=== PATIENT | male | born 1965 | race Caucasian/White ===

== ENCOUNTER 2016-10-06 13:42 | Inpatient (IN) | payer OTHER ==
[2016-10-06 15:25] VITALS: BMI 32.1
--- NOTE | 2016-10-06 18:21 | HP ---
CIWA Score - CIWA Score Nausea/Vomitin Muscle Tremors: 4-Moderate,w/Arms Extend Anxiety: 4-Mod. Anxious/Guarded Agitation: 4-Moderately Restless Paroxysmal Sweats: 1-Minimal Palms Moist Orientation: 3-Disoriented Date>2 days Tacttile Disturbances: 0-None Auditory Disturbances: 0-None Visual Disturbances: 0-None Headache: 2-Mild CIWA-Ar Total Score: 20 Admission ROS BHS - HPI Chief Complaint: WITHDRAWAL SX Allergies/Adverse Reactions: Allergies Allergy/AdvReac Type Severity Reaction Status Date / Time No Known Allergies Allergy Verified 10/06/16 16:07 History of Present Illness: 51 YEARS OLD MALE WITH LONG HISTORY OF ALCOHOL DEPENDENCE, HAS HYPERTENSION AF AND DEPRESSION ANXIETY LONGEST SOBRIETY 7 MONTHS IS ADMITTED TO DETOX Exam Limitations: No Limitations - Ebola screening Have you traveled outside of the country in the last 21 days: No Have you had contact with anyone from an Ebola affected area: No Have you been sick,other than usual withdrawal symptoms: No Do you have a fever: No - Review of Systems Constitutional: Chills, Changes in sleep, Weight Stable EENT: reports: No Symptoms Reported Respiratory: reports: SOB at Rest Cardiac: reports: Palpitations GI: reports: Nausea, Poor Fluid Intake, Vomiting, Indigestion, Abdominal cramping Musculoskeletal: reports: No Symptoms Reported Integumentary: reports: No Symptoms Reported Neuro: reports: Seizure (LAST EPISODE 2009), Tremors Endocrine: reports: No Symptoms Reported Hematology: reports: Easy Bruising Psychiatric: reports: Judgement Intact, Depressed Other Systems: Reviewed and Negative Patient History - Patient Medical History Hx Anemia: No Hx Asthma: No Hx Chronic Obstructive Pulmonary Disease (COPD): No Hx Cancer: No Hx Cardiac Disorders: Yes (A fibrilation) Hx Congestive Heart Failure: No Hx Hypertension: Yes Hx Hypercholesterolemia: No Hx Pacemaker: No HX Cerebrovascular Accident: No Hx Seizures: Yes (alcohol r/seizure, last episode 6 months ago) Hx Dementia: No Hx Diabetes: No Hx Gastrointestinal Disorders: Yes Hx Liver Disease: No Hx Genitourinary Disorders: No Hx Sexually Transmitted Disorders: No Hx Renal Disease (ESRD): No Hx Thyroid Disease: No Hx Human Immunodeficiency Virus (HIV): No (LAST 06/18 NEGATIVE) Hx Hepatitis C: No Hx Depression: Yes Hx Suicide Attempt: No Hx Bipolar Disorder: No Hx Schizophrenia: No - Patient Surgical History Past Surgical History: No Hx Neurologic Surgery: No Hx Cataract Extraction: No Hx Cardiac Surgery: No Hx Lung Surgery: No Hx Breast Surgery: No Hx Breast Biopsy: No Hx Abdominal Surgery: No Hx Appendectomy: No Hx Cholecystectomy: No Hx Genitourinary Surgery: No Hx Orthopedic Surgery: No - PPD History Previous Implant?: Yes Documented Results: Negative w/proof Implanted On Prior [facility] Admission?: Yes Date: 06/25/16 Results: 0 mm PPD to be Administered?: No - Smoking Cessation Smoking history: Never smoked Have you smoked in the past 12 months: No Aproximately how many cigarettes per day: 0 Cigars Per Day: 0 Hx Chewing Tobacco Use: No Initiated information on smoking cessation: No - Substance & Tx. History Hx Alcohol Use: Yes Hx Substance Use: No Substance Use Type: Alcohol Hx Substance Use Treatment: Yes - Substances Abused Alcohol Route: Oral Frequency: Daily Amount used: Beer 2-3, 2 pints Vodka Age of first use: 12 Date of Last Use: 10/06/16 Family Disease History - Family Disease History Family Disease History: Other: Father (ALCOHOL,) Admission Physical Exam S - Vital Signs Vital Signs: Vital Signs - 24 hr 10/06/16 15:19 Temperature 97.3 F L Pulse Rate 109 H Respiratory 18 Rate Blood Pressure 153/77 - Physical General Appearance: Yes: Nourished, Appropriately Dressed, Moderate Distress, Alcohol on Breath, Tremorous, Irritable, Sweating, Anxious HEENTM: Yes: Hearing grossly Normal, Normal ENT Inspection, Normocephalic, Normal Voice Respiratory: Yes: Chest Non-Tender, Lungs Clear, Normal Breath Sounds, No Respiratory Distress, No Accessory Muscle Use Neck: Yes: Supple, Trachea in good position Breast: Yes: Breasts Symetrical Cardiology: Yes: Tachycardia, Irregularly Irregular Abdominal: Yes: Non Tender, Soft, Increased Bowel Sounds Genitourinary: Yes: Within Normal Limits Back: Yes: Normal Inspection Musculoskeletal: Yes: full range of Motion, Gait Steady Extremities: Yes: Normal Range of Motion, Non-Tender, Tremors Neurological: Yes: Alert, Motor Strength 5/5, Normal Mood/Affect, Normal Response Integumentary: Yes: Warm Lymphatic: Yes: Within Normal Limits - Diagnostic (1) Alcohol dependence with uncomplicated withdrawal Current Visit: Yes Status: Acute (2) Atrial fibrillation Current Visit: Yes Status: Acute Qualifiers: Atrial fibrillation type: paroxysmal Qualified Code(s): I48.0 - Paroxysmal atrial fibrillation (3) Hypertension Current Visit: Yes Status: Acute Qualifiers: Hypertension type: essential hypertension Qualified Code(s): I10 - Essential (primary) hypertension (4) GERD (gastroesophageal reflux disease) Current Visit: Yes Status: Acute Qualifiers: Esophagitis presence: without esophagitis Qualified Code(s): K21.9 - Gastro-esophageal reflux disease without esophagitis (5) Neuropathy Current Visit: Yes Status: Acute Cleared for Admission S - Detox or Rehab [facility] Level of Care: Medically Managed Detox Regimen/Protocol: Librium [facility] Breath Alcohol Content Breath Alcohol Content: 0.128 Urine Pregancy Test - Result Urine Test Results: Negative- NO Line Present Urine Drug Screen - Results Drug Screen Negative: No Urine Drug Screen Results: BZO-Benzodiazepines
[2016-10-06] MEDS ORDERED: MENTHOL/PHENOL 1 EACH UD MM PRN (18:23)
[2016-10-06] MEDS ORDERED: MAGNESIUM CITRATE 300 ML BOTTLE PO PRN (18:23)
[2016-10-06] MEDS ORDERED: MAG HYDROX/AL HYDROX/SIMETH 30 ML UNIT-DOSE CUP PO PRN (18:23)
[2016-10-06] MEDS ORDERED: ACETAMINOPHEN 325 MG TABLET (FP) PO PRN (18:23)
[2016-10-06] MEDS ORDERED: chlordiazePOXIDE HCL 25 MG CAPSULE PO PRN (18:23)
[2016-10-06] MEDS ORDERED: MAGNESIUM HYDROX 2400MG/30ML ORAL SUSPENSION 30 ML CUP PO PRN (18:23)
[2016-10-06] MEDS ORDERED: P-EPHED 60MG/TRIPROLIDI 2.5MG TABLET PO PRN (18:23)
[2016-10-06] MEDS ORDERED: guaiFENesin/D-METHORPHAN HB 10 ML UNIT-DOSE CUPS PO PRN (18:23)
[2016-10-06] MEDS ORDERED: hydrOXYzine PAMOATE 50 MG CAPSULE (FP) PO PRN (18:23)
[2016-10-06] MEDS ORDERED: LOPERAMIDE HCL 2 MG CAPSULE PO PRN (18:23)
[2016-10-06] MEDS ORDERED: chlordiazePOXIDE HCL 25 MG CAPSULE PO ONE (19:00)
[2016-10-06] MEDS: METOPROLOL TARTRATE 50 MG TABLET (FP) PO SCH (22:08)
[2016-10-06] MEDS: THIAMINE HCL 100 MG TABLET (FP) PO SCH (22:08)
[2016-10-06] MEDS: chlordiazePOXIDE HCL 25 MG CAPSULE PO SCH (22:08)
[2016-10-06] MEDS: RANITIDINE HCL 150 MG TABLET (FP) PO SCH (22:08)
[2016-10-06] MEDS: GABAPENTIN 300 MG CAPSULE (FP) PO SCH (22:08)
[2016-10-06] MEDS: diphenhydrAMINE HCL 50 MG CAPSULE PO PRN (22:08)
[2016-10-06 22:53] LABS: URINE APPEARANCE CLEAR; URINE BILIRUBIN NEGATIVE (NEGATIVE); URINE BLOOD NEGATIVE (NEGATIVE); URINE COLOR YELLOW; URINE GLUCOSE (UA) NEGATIVE (NEGATIVE); URINE KETONE NEGATIVE (NEGATIVE); URINE LEUK ESTERASE NEGATIVE (NEGATIVE); URINE NITRITE NEGATIVE (NEGATIVE); URINE PROTEIN NEGATIVE (NEGATIVE); URINE UROBILINOGEN NEGATIVE E.U./dl (0.2-1.0)
[2016-10-07] MEDS: GABAPENTIN 300 MG CAPSULE (FP) PO SCH ×3 (05:32→22:06)
[2016-10-07] MEDS: chlordiazePOXIDE HCL 25 MG CAPSULE PO SCH ×4 (05:32→22:07)
[2016-10-07] MEDS ORDERED: LISINOPRIL 5 MG TABLET (FP) PO SCH (10:00)
[2016-10-07] MEDS: RANITIDINE HCL 150 MG TABLET (FP) PO SCH ×2 (10:06→22:06)
[2016-10-07] MEDS: PRENATAL VITAMINS W/ FOLIC ACID TABLET (FP) PO SCH (10:06)
[2016-10-07] MEDS: RIVAROXABAN 20 MG TABLET PO SCH (10:06)
[2016-10-07] MEDS: METOPROLOL TARTRATE 50 MG TABLET (FP) PO SCH ×3 (10:07→22:06)
[2016-10-07 10:43] LABS: MCH 31.7 pg (25.7-33.7); MCHC 33.7 g/dl (32.0-35.9); MEAN CELL VOLUME 94.1 fl (80-96); MEAN PLT VOLUME 8.2 fl (7.5-11.1); RDW 14.7 % (11.9-15.9); WHITE BLOOD COUNT 3.5 K/mm3 (4.0-10.0)
[2016-10-07 10:54] LABS: INR 1.04 (0.82-1.09); PROTHROMBIN TIME (PATIENT) 11.5 SEC (9.98-11.88)
[2016-10-07 11:04] LABS: ALK PHOS 83 U/L (45-117); ANION GAP 11 (8-16); BILIRUBIN,TOTAL 0.9 mg/dL (0.2-1.0); CALCIUM 8.4 mg/dL (8.5-10.1); CO2 27 mmol/L (21-32); CREATININE 0.8 mg/dL (0.7-1.3); GLUCOSE,RANDOM 85 mg/dL (74-106); SGOT/AST 136 U/L (15-37); SGPT/ALT 56 U/L (12-78); TOT PROT 5.8 g/dl (6.4-8.2)
--- NOTE | 2016-10-07 11:16 | PN ---
S CIWA - CIWA Score Nausea/Vomitin Muscle Tremors: 4-Moderate,w/Arms Extend Anxiety: 4-Mod. Anxious/Guarded Agitation: 4-Moderately Restless Paroxysmal Sweats: 3 Orientation: 0-Oriented Tacttile Disturbances: 1-Very Mild Itch/Numbness Auditory Disturbances: 0-None Visual Disturbances: 0-None Headache: 1-Very Mild CIWA-Ar Total Score: 20 BHS Progress Note (SOAP) Subjective: nausea, sweats, interrupted sleep, anxiety, tremors Objective: 10/07/16 11:15 Vital Signs - 24 hr 10/06/16 10/06/16 10/07/16 15:19 22:20 00:30 Temperature 97.3 F L 96.3 F L Pulse Rate 109 H 69 60 Respiratory 18 18 18 Rate Blood Pressure 153/77 123/51 10/07/16 10/07/16 03:30 06:29 Temperature 97.4 F L Pulse Rate 90 Respiratory 18 18 Rate Blood Pressure 129/101 Vital Signs - 24 hr 10/06/16 10/06/16 10/07/16 15:19 22:20 00:30 Temperature 97.3 F L 96.3 F L Pulse Rate 109 H 69 60 Respiratory 18 18 18 Rate Blood Pressure 153/77 123/51 10/07/16 10/07/16 03:30 06:29 Temperature 97.4 F L Pulse Rate 90 Respiratory 18 18 Rate Blood Pressure 129/101 Laboratory Tests 10/06/16 10/07/16 10/07/16 22:03 08:00 08:00 WBC 3.5 L D RBC 4.66 Hgb 14.8 D Hct 43.9 MCV 94.1 MCHC 33.7 RDW 14.7 MPV 8.2 D INR Sodium 141 Potassium 3.5 Chloride 103 Urine Color Yellow Urine Appearance Clear Urine pH 5.0 Ur Specific [place] 1.024 Urine Protein Negative Urine Glucose (UA) Negative Urine Ketones Negative Urine Blood Negative Urine Nitrite Negative Urine Bilirubin Negative Urine Urobilinogen Negative Ur Leukocyte Esterase Negative 10/07/16 08:00 WBC RBC Hgb Hct MCV MCHC RDW MPV INR 1.04 Sodium Potassium Chloride Urine Color Urine Appearance Urine pH Ur Specific [place] Urine Protein Urine Glucose (UA) Urine Ketones Urine Blood Urine Nitrite Urine Bilirubin Urine Urobilinogen Ur Leukocyte Esterase labs still pending Assessment: 10/07/16 11:15 withdrawal sx Plan: cont detox, fluids, encoruage ambualtion, rpn libirum recommended
--- NOTE | 2016-10-07 11:45 | CONSULT ---
[facility] Psychiatric Consult - Data Date of interview: 10/07/16 Admission source: [facility] Identifying data: Readmission to [facility] for this 51 y/o male seeking detox treatment on for alci=ohol dependence.Patientis without children,homeless,unemployed and supported on Public Assistance. Substance Abuse History: - Smoking Cessation. Smoking history: Never smoked. Have you smoked in the past 12 months: No. Aproximately how many cigarettes per day: 0. Cigars Per Day: 0. Hx Chewing Tobacco Use: No. Initiated information on smoking cessation: No. - Substance & Tx. History. Hx Alcohol Use: Yes. Hx Substance Use: No. Substance Use Type: Alcohol. Hx Substance Use Treatment: Yes. - Substances Abused. Alcohol. Route: Oral. Frequency : Daily. Amount used: Beer 2-3, 2 pints Vodka. Age of first use: 12. Date of Last Use: 10/06/16. Confirmed by the patient in my interview. Medical History: Atrial fibrillation,hypertension and withdrawal seizures. Psychiatric History: No reported history of psychiatric hospitalizations.Patient is known to the [facility] drug program ([facility] ) where he had addressed his addictions in therapy in 1994.Mr Hunt is currently seeing a psychiatrist in [facility] for medication management.Diagnosed with MDD and Anxiety Disorder.Medications : seroquel 100 mg /hs (patient stopped taking that drug because of intolerable side-effects) + remeron 15 mg/hs.No history of suicide attempts. Physical/Sexual Abuse/Trauma History: Patient denies. Additional Comment: Urine Drug Screen Results: BZO-Benzodiazepines.Noted. Mental Status Exam - Mental Status Exam Alert and Oriented to: Time, Place, Person Cognitive Function: Good Mood: Anxious, Apprehensive, Hopeful Affect: Mood Congruent Patient Behavior: Fatigued, Appropriate, Cooperative Speech Pattern: Clear, Appropriate Voice Loudness: Normal Thought Process: Intact, Goal Oriented Thought Disorder: Not Present Hallucinations: Denies Suicidal Ideation: Denies Homicidal Ideation: Denies Insight/Judgement: Fair Sleep: Poorly, Difficulty falling asleep Appetite: Good Muscle strength/Tone: Normal Gait/Station: Normal Psychiatric Findings - Problem List (Gy[place] 1, 2,3) (1) Alcohol dependence with uncomplicated withdrawal Current Visit: Yes Status: Acute (2) Alcohol-induced mood disorder Current Visit: No Status: Acute (3) Depressive disorder Current Visit: Yes Status: Chronic (4) Atrial fibrillation Current Visit: Yes Status: Chronic Qualifiers: Atrial fibrillation type: paroxysmal Qualified Code(s): I48.0 - Paroxysmal atrial fibrillation (5) GERD (gastroesophageal reflux disease) Current Visit: Yes Status: Chronic Qualifiers: Esophagitis presence: without esophagitis Qualified Code(s): K21.9 - Gastro-esophageal reflux disease without esophagitis (6) Hypertension Current Visit: Yes Status: Chronic Qualifiers: Hypertension type: essential hypertension Qualified Code(s): I10 - Essential (primary) hypertension (7) Neuropathy Current Visit: Yes Status: Chronic (8) Alcohol related seizure Current Visit: No Status: Suspected (9) Gout Current Visit: No Status: Chronic - Initial Treatment Plan Initial Treatment Plan: Psychoeducation.Detoxification.Remeron 15 mg po hs.Side effects/benefits discussed with the patient.He agrees with this plan.Observation.
[2016-10-07 12:27] LABS: PLATELET COMMENT2 UNABLE TO ENUMERATE; PLATELET ESTIMATE ADEQUATE (NORMAL)
[2016-10-07] MEDS: LISINOPRIL 5 MG TABLET (FP) PO SCH (12:42)
--- NOTE | 2016-10-07 12:48 | PN ---
[facility] Progress Note Note: Vital Signs - 24 hr 10/06/16 10/06/16 10/07/16 15:19 22:20 00:30 Temperature 97.3 F L 96.3 F L Pulse Rate 109 H 69 60 Respiratory 18 18 18 Rate Blood Pressure 153/77 123/51 10/07/16 10/07/16 10/07/16 03:30 06:29 11:28 Temperature 97.4 F L 97.4 F L Pulse Rate 90 80 Respiratory 18 18 20 Rate Blood Pressure 129/101 123/91 Laboratory Tests 10/06/16 10/07/16 10/07/16 22:03 08:00 08:00 WBC 3.5 L D RBC 4.66 Hgb 14.8 D Hct 43.9 MCV 94.1 MCHC 33.7 RDW 14.7 Plt Count Not Reportable MPV 8.2 D Differential Comment Slide scanned Platelet Estimate Adequate Platelet Comment Unable to enumerate INR Sodium 141 Potassium 3.5 Chloride 103 Carbon Dioxide 27 Anion Gap 11 BUN 15 Creatinine 0.8 Creat Clearance w eGFR > 60 Random Glucose 85 D Calcium 8.4 L Total Bilirubin 0.9 AST 136 H D ALT 56 D Alkaline Phosphatase 83 D Total Protein 5.8 L Albumin 3.0 L Urine Color Yellow Urine Appearance Clear Urine pH 5.0 Ur Specific [place] 1.024 Urine Protein Negative Urine Glucose (UA) Negative Urine Ketones Negative Urine Blood Negative Urine Nitrite Negative Urine Bilirubin Negative Urine Urobilinogen Negative Ur Leukocyte Esterase Negative 10/07/16 08:00 WBC RBC Hgb Hct MCV MCHC RDW Plt Count MPV Differential Comment Platelet Estimate Platelet Comment INR 1.04 Sodium Potassium Chloride Carbon Dioxide Anion Gap BUN Creatinine Creat Clearance w eGFR Random Glucose Calcium Total Bilirubin AST ALT Alkaline Phosphatase Total Protein Albumin Urine Color Urine Appearance Urine pH Ur Specific [place] Urine Protein Urine Glucose (UA) Urine Ketones Urine Blood Urine Nitrite Urine Bilirubin Urine Urobilinogen Ur Leukocyte Esterase abnormal CBC, repeat labs in am.
[2016-10-07 14:15] LABS: HIV 1 & 2 AB NEGATIVE; HIV 1 AGp24 NEGATIVE
--- NOTE | 2016-10-07 18:39 | EKG ---
Test Reason : Blood Pressure : / mmHG Vent. Rate : 113 BPM Atrial Rate : 101 BPM P-R Int : 000 ms QRS Dur : 116 ms QT Int : 358 ms P-R-T Axes : 000 009 021 degrees QTc Int : 491 ms ATRIAL FIBRILLATION WITH RAPID VENTRICULAR RESPONSE RIGHT BUNDLE BRANCH BLOCK ABNORMAL ECG NO PREVIOUS ECGS AVAILABLE Confirmed by SHYANN CORREA, KATY ([id number]) on 10/07/2016 6:39:09 PM Referred By: Confirmed By:KATY BOOTHE MD
[2016-10-07] MEDS: MIRTAZAPINE 15 MG TABLET (FP) PO SCH (22:06)
[2016-10-07] MEDS: THIAMINE HCL 100 MG TABLET (FP) PO SCH (22:06)
[2016-10-07] MEDS: diphenhydrAMINE HCL 50 MG CAPSULE PO PRN (22:07)
[2016-10-08] MEDS: chlordiazePOXIDE HCL 25 MG CAPSULE PO SCH ×3 (05:23→17:15)
[2016-10-08] MEDS: GABAPENTIN 300 MG CAPSULE (FP) PO SCH ×3 (05:23→22:02)
[2016-10-08 10:05] LABS: BASOPHIL 1.3 % (0-2.0); EOSINOPHIL 2.3 % (0-4.5); MCH 31.3 pg (25.7-33.7); MEAN CELL VOLUME 94.9 fl (80-96); MEAN PLT VOLUME 8.4 fl (7.5-11.1); NEUTROPHILS 37.5 % (42.8-82.8); RDW 14.2 % (11.9-15.9); WHITE BLOOD COUNT 3.2 K/mm3 (4.0-10.0)
[2016-10-08] MEDS: RANITIDINE HCL 150 MG TABLET (FP) PO SCH ×2 (10:05→22:02)
[2016-10-08] MEDS: LISINOPRIL 5 MG TABLET (FP) PO SCH (10:05)
[2016-10-08] MEDS: METOPROLOL TARTRATE 50 MG TABLET (FP) PO SCH ×2 (10:05→22:02)
[2016-10-08] MEDS: RIVAROXABAN 20 MG TABLET PO SCH (10:05)
[2016-10-08] MEDS: PRENATAL VITAMINS W/ FOLIC ACID TABLET (FP) PO SCH (10:05)
[2016-10-08 10:35] LABS: ALBUMIN 2.9 g/dl (3.4-5.0); ANION GAP 11 (8-16); CALCIUM 8.2 mg/dL (8.5-10.1); CO2 25 mmol/L (21-32); GLUCOSE,RANDOM 91 mg/dL (74-106); SGOT/AST 103 U/L (15-37); SGPT/ALT 62 U/L (12-78)
[2016-10-08 10:37] LABS: ALK PHOS 93 U/L (45-117); BILIRUBIN,TOTAL 0.8 mg/dL (0.2-1.0); CREATININE 0.8 mg/dL (0.7-1.3); TOT PROT 5.9 g/dl (6.4-8.2)
[2016-10-08 11:26] LABS: PLATELET ESTIMATE ADEQUATE (NORMAL)
--- NOTE | 2016-10-08 12:37 | PN ---
S CIWA - CIWA Score Nausea/Vomitin Muscle Tremors: 4-Moderate,w/Arms Extend Anxiety: 4-Mod. Anxious/Guarded Agitation: 3 Paroxysmal Sweats: No Perspiration Orientation: 0-Oriented Tacttile Disturbances: 1-Very Mild Itch/Numbness Auditory Disturbances: 0-None Visual Disturbances: 0-None Headache: 3-Moderate CIWA-Ar Total Score: 17 BHS Progress Note (SOAP) Subjective: Sweating, anxious, tremor, interrupted sleep, nausea Objective: 10/08/16 12:33 Last Vital Signs Temp Pulse Resp BP Pulse Ox 98.3 F 61 18 134/96 10/08/16 09:23 10/08/16 09:23 10/08/16 09:23 10/08/16 09:23 Laboratory Tests 10/06/16 10/07/16 10/07/16 22:03 08:00 08:00 WBC 3.5 L D RBC 4.66 Hgb 14.8 D Hct 43.9 MCV 94.1 MCHC 33.7 RDW 14.7 Plt Count Not Reportable MPV 8.2 D Neutrophils % Lymphocytes % Monocytes % Eosinophils % Basophils % Nucleated RBCs Differential Comment Slide scanned Hypersegmented Neuts Toxic Granulation Dohle Bodies Genoveva Rods Platelet Estimate Adequate Platelet Comment Unable to enumerate Polychromasia Hypochromic-Microcytic Poikilocytosis Basophilic Stippling Anisocytosis Microcytosis Macrocytosis Spherocytes Siderocytes Sickle Cells Target Cells Tear Drop Cells Ovalocytes Stomatocytes Helmet Cells Perez-[place] Bodies [place] Rings Elio Cells Acanthocytes (Spur) Rouleaux Fragmented RBCs Schistocytes Morphology Comment INR Sodium Potassium Chloride Carbon Dioxide Anion Gap BUN Creatinine Creat Clearance w eGFR Random Glucose Calcium Total Bilirubin AST ALT Alkaline Phosphatase Total Protein Albumin Urine Color Yellow Urine Appearance Clear Urine pH 5.0 Ur Specific [place] 1.024 Urine Protein Negative Urine Glucose (UA) Negative Urine Ketones Negative Urine Blood Negative Urine Nitrite Negative Urine Bilirubin Negative Urine Urobilinogen Negative Ur Leukocyte Esterase Negative RPR Titer HIV 1&2 Antibody Screen Negative HIV P24 Antigen Negative 10/07/16 10/07/16 10/07/16 08:00 08:00 08:00 WBC RBC Hgb Hct MCV MCHC RDW Plt Count MPV Neutrophils % Lymphocytes % Monocytes % Eosinophils % Basophils % Nucleated RBCs Differential Comment Hypersegmented Neuts Toxic Granulation Dohle Bodies Genoveva Rods Platelet Estimate Platelet Comment Polychromasia Hypochromic-Microcytic Poikilocytosis Basophilic Stippling Anisocytosis Microcytosis Macrocytosis Spherocytes Siderocytes Sickle Cells Target Cells Tear Drop Cells Ovalocytes Stomatocytes Helmet Cells Perez-[place] Bodies [place] Rings [place] Cells Acanthocytes (Spur) Rouleaux Fragmented RBCs Schistocytes Morphology Comment INR 1.04 Sodium 141 Potassium 3.5 Chloride 103 Carbon Dioxide 27 Anion Gap 11 BUN 15 Creatinine 0.8 Creat Clearance w eGFR > 60 Random Glucose 85 D Calcium 8.4 L Total Bilirubin 0.9 AST 136 H D ALT 56 D Alkaline Phosphatase 83 D Total Protein 5.8 L Albumin 3.0 L Urine Color Urine Appearance Urine pH Ur Specific [place] Urine Protein Urine Glucose (UA) Urine Ketones Urine Blood Urine Nitrite Urine Bilirubin Urine Urobilinogen Ur Leukocyte Esterase RPR Titer Nonreactive HIV 1&2 Antibody Screen HIV P24 Antigen 10/08/16 10/08/16 07:20 07:20 WBC 3.2 L RBC 4.60 Hgb 14.4 Hct 43.7 MCV 94.9 MCHC 33.0 RDW 14.2 Plt Count Not Reportable MPV 8.4 Neutrophils % 37.5 L Lymphocytes % 49.8 H Monocytes % 9.1 Eosinophils % 2.3 Basophils % 1.3 Nucleated RBCs Cancelled Differential Comment Hypersegmented Neuts Cancelled Toxic Granulation Cancelled Dohle Bodies Cancelled Genoveva Rods Cancelled Platelet Estimate Adequate Platelet Comment Marked plt clumping Polychromasia Cancelled Hypochromic-Microcytic Cancelled Poikilocytosis Cancelled Basophilic Stippling Cancelled Anisocytosis Cancelled Microcytosis Cancelled Macrocytosis Cancelled Spherocytes Cancelled Siderocytes Cancelled Sickle Cells Cancelled Target Cells Cancelled Tear Drop Cells Cancelled Ovalocytes Cancelled Stomatocytes Cancelled Helmet Cells Cancelled Perez-[place] Bodies Cancelled [place] Rings Cancelled Elio Cells Cancelled Acanthocytes (Spur) Cancelled Rouleaux Cancelled Fragmented RBCs Cancelled Schistocytes Cancelled Morphology Comment Cancelled INR Sodium 141 Potassium 3.4 L Chloride 105 Carbon Dioxide 25 Anion Gap 11 BUN 12 Creatinine 0.8 Creat Clearance w eGFR > 60 Random Glucose 91 Calcium 8.2 L Total Bilirubin 0.8 AST 103 H D ALT 62 Alkaline Phosphatase 93 Total Protein 5.9 L Albumin 2.9 L Urine Color Urine Appearance Urine pH Ur Specific [place] Urine Protein Urine Glucose (UA) Urine Ketones Urine Blood Urine Nitrite Urine Bilirubin Urine Urobilinogen Ur Leukocyte Esterase RPR Titer HIV 1&2 Antibody Screen HIV P24 Antigen Labs noted: K 3.4, abnormal CBC Assessment: 10/08/16 12:37 Withdrawal symptoms Noted with hypokalemia and abnormal CBC Plan: Continue detox Hypokalemia: K Dur 40meq PO x 1 dose, repeat BMP in AM Abnormal CBC: repeat CBC, consider referral to heading saw operator if platelets count still not reportable
[2016-10-08] MEDS ORDERED: POTASSIUM CHLORIDE TABS 20 MEQ TABLET.ER (FP) PO ONE (13:30)
[2016-10-08] MEDS: THIAMINE HCL 100 MG TABLET (FP) PO SCH (22:02)
[2016-10-08] MEDS: chlordiazePOXIDE 5 MG CAPSULE PO SCH (22:02)
[2016-10-08] MEDS: MIRTAZAPINE 15 MG TABLET (FP) PO SCH (22:02)
[2016-10-08] MEDS: diphenhydrAMINE HCL 50 MG CAPSULE PO PRN (22:02)
[2016-10-09] MEDS: GABAPENTIN 300 MG CAPSULE (FP) PO SCH ×3 (05:37→22:02)
[2016-10-09] MEDS: chlordiazePOXIDE 5 MG CAPSULE PO SCH ×3 (05:37→17:24)
[2016-10-09] MEDS: LISINOPRIL 5 MG TABLET (FP) PO SCH (10:01)
[2016-10-09] MEDS: PRENATAL VITAMINS W/ FOLIC ACID TABLET (FP) PO SCH (10:01)
[2016-10-09] MEDS: METOPROLOL TARTRATE 50 MG TABLET (FP) PO SCH ×2 (10:01→22:02)
[2016-10-09 10:05] LABS: BASOPHIL 1.3 % (0-2.0); CALCIUM 8.2 mg/dL (8.5-10.1); CREATININE 0.7 mg/dL (0.7-1.3); EOSINOPHIL 1.9 % (0-4.5); MCH 31.2 pg (25.7-33.7); MCHC 32.8 g/dl (32.0-35.9); MEAN CELL VOLUME 95.1 fl (80-96); MEAN PLT VOLUME 8.7 fl (7.5-11.1); NEUTROPHILS 40.1 % (42.8-82.8); RDW 14.4 % (11.9-15.9); WHITE BLOOD COUNT 3.3 K/mm3 (4.0-10.0)
[2016-10-09] MEDS: RANITIDINE HCL 150 MG TABLET (FP) PO SCH ×2 (10:26→22:02)
[2016-10-09] MEDS: RIVAROXABAN 20 MG TABLET PO SCH (10:26)
[2016-10-09 11:09] LABS: PLATELET ESTIMATE DECREASED (NORMAL)
--- NOTE | 2016-10-09 12:37 | PN ---
[facility] Progress Note (SOAP) Subjective: Sweating, Tremors, Diarrhea, Interrupted Sleep. Objective: PT. A & O X 3, OBSERVED AMBULATING ON UNIT. 10/09/16 12:33 Vital Signs Temperature 96.9 F L 10/09/16 09:57 Pulse Rate 61 10/09/16 09:57 Respiratory Rate 18 10/09/16 09:57 Blood Pressure 132/97 10/09/16 09:57 O2 Sat by Pulse Oximetry (%) Laboratory Last Values WBC 3.3 K/mm3 (4.0-10.0) L 10/09/16 07:00 RBC 4.63 M/mm3 (4.00-5.60) 10/09/16 07:00 Hgb 14.4 GM/dL (11.7-16.9) 10/09/16 07:00 Hct 44.1 % (35.4-49) 10/09/16 07:00 MCV 95.1 fl (80-96) 10/09/16 07:00 MCHC 32.8 g/dl (32.0-35.9) 10/09/16 07:00 RDW 14.4 % (11.9-15.9) 10/09/16 07:00 Plt Count Not Reportable 10/09/16 07:00 MPV 8.7 fl (7.5-11.1) 10/09/16 07:00 Neutrophils % 40.1 % (42.8-82.8) L 10/09/16 07:00 Lymphocytes % 47.2 % (8-40) H 10/09/16 07:00 Monocytes % 9.5 % (3.8-10.2) 10/09/16 07:00 Eosinophils % 1.9 % (0-4.5) 10/09/16 07:00 Basophils % 1.3 % (0-2.0) 10/09/16 07:00 Nucleated RBCs Cancelled 10/08/16 07:20 Differential Comment Slide scanned 10/07/16 08:00 Hypersegmented Neuts Cancelled 10/08/16 07:20 Toxic Granulation Cancelled 10/08/16 07:20 Dohle Bodies Cancelled 10/08/16 07:20 Genoveva Rods Cancelled 10/08/16 07:20 Platelet Estimate Decreased (NORMAL) 10/09/16 07:00 Platelet Comment Mod plt clumping 10/09/16 07:00 Platelet Comment Unable to enumerate 10/07/16 08:00 Polychromasia Cancelled 10/08/16 07:20 Hypochromic-Microcytic Cancelled 10/08/16 07:20 Poikilocytosis Cancelled 10/08/16 07:20 Basophilic Stippling Cancelled 10/08/16 07:20 Anisocytosis Cancelled 10/08/16 07:20 Microcytosis Cancelled 10/08/16 07:20 Macrocytosis Cancelled 10/08/16 07:20 Spherocytes Cancelled 10/08/16 07:20 Siderocytes Cancelled 10/08/16 07:20 Sickle Cells Cancelled 10/08/16 07:20 Target Cells Cancelled 10/08/16 07:20 Tear Drop Cells Cancelled 10/08/16 07:20 Ovalocytes Cancelled 10/08/16 07:20 Stomatocytes Cancelled 10/08/16 07:20 Helmet Cells Cancelled 10/08/16 07:20 [place] Bodies Cancelled 10/08/16 07:20 [place] Rings Cancelled 10/08/16 07:20 Elio Cells Cancelled 10/08/16 07:20 Acanthocytes (Spur) Cancelled 10/08/16 07:20 Rouleaux Cancelled 10/08/16 07:20 Fragmented RBCs Cancelled 10/08/16 07:20 Schistocytes Cancelled 10/08/16 07:20 Morphology Comment Cancelled 10/08/16 07:20 INR 1.04 (0.82-1.09) 10/07/16 08:00 Sodium 140 mmol/L (136-145) 10/09/16 07:00 Potassium 3.4 mmol/L (3.5-5.1) L 10/09/16 07:00 Chloride 104 mmol/L (98-107) 10/09/16 07:00 Carbon Dioxide 26 mmol/L (21-32) 10/09/16 07:00 Anion Gap 10 (8-16) 10/09/16 07:00 BUN 12 mg/dL (7-18) 10/09/16 07:00 Creatinine 0.7 mg/dL (0.7-1.3) 10/09/16 07:00 Creat Clearance w eGFR > 60 (>60) 10/08/16 07:20 Random Glucose 135 mg/dL (74-106) H D 10/09/16 07:00 Calcium 8.2 mg/dL (8.5-10.1) L 10/09/16 07:00 Total Bilirubin 0.8 mg/dL (0.2-1.0) 10/08/16 07:20 AST 103 U/L (15-37) H D 10/08/16 07:20 ALT 62 U/L (12-78) 10/08/16 07:20 Alkaline Phosphatase 93 U/L (45-117) 10/08/16 07:20 Total Protein 5.9 g/dl (6.4-8.2) L 10/08/16 07:20 Albumin 2.9 g/dl (3.4-5.0) L 10/08/16 07:20 Urine Color Yellow 10/06/16 22:03 Urine Appearance Clear 10/06/16 22:03 Urine pH 5.0 (5.0-8.0) 10/06/16 22:03 Ur Specific [place] 1.024 (1.001-1.035) 10/06/16 22:03 Urine Protein Negative (NEGATIVE) 10/06/16 22:03 Urine Glucose (UA) Negative (NEGATIVE) 10/06/16 22:03 Urine Ketones Negative (NEGATIVE) 10/06/16 22:03 Urine Blood Negative (NEGATIVE) 10/06/16 22:03 Urine Nitrite Negative (NEGATIVE) 10/06/16 22:03 Urine Bilirubin Negative (NEGATIVE) 10/06/16 22:03 Urine Urobilinogen Negative E.U./dl (0.2-1.0) 10/06/16 22:03 Ur Leukocyte Esterase Negative (NEGATIVE) 10/06/16 22:03 RPR Titer Nonreactive (NONREACTIVE) 10/07/16 08:00 HIV 1&2 Antibody Screen Negative 10/07/16 08:00 HIV P24 Antigen Negative 10/07/16 08:00 LABS NOTED. 10/09/16 12:34 Assessment: 10/09/16 12:35 WITHDRAWAL SYMPTOMS. Plan: CONTINUE DETOX. K-DUR, 40 ANGIE NOW AND THEN 20 MEQ BID AFTER. ADVISED PT. TO FOLLOW-UP WITH RN DIABETES EDUCATOR / REHAB MEDICAL PROVIDER AFTER DISCHARGE FROM DETOX FOR GENERAL MEDICAL ASSESSMENT AND FOR ABNORMAL LAB VALUES.
[2016-10-09] MEDS ORDERED: POTASSIUM CHLORIDE TABS 20 MEQ TABLET.ER (FP) PO ONE (12:39)
[2016-10-09] MEDS: MIRTAZAPINE 15 MG TABLET (FP) PO SCH (22:02)
[2016-10-09] MEDS: THIAMINE HCL 100 MG TABLET (FP) PO SCH (22:02)
[2016-10-09] MEDS: diphenhydrAMINE HCL 50 MG CAPSULE PO PRN (22:02)
[2016-10-09] MEDS: chlordiazePOXIDE HCL 10 MG CAPSULE PO SCH (22:02)
[2016-10-09] MEDS: POTASSIUM CHLORIDE TABS 20 MEQ TABLET.ER (FP) PO SCH (22:02)
[2016-10-10] MEDS: chlordiazePOXIDE HCL 10 MG CAPSULE PO SCH ×2 (05:43→12:19)
[2016-10-10] MEDS: GABAPENTIN 300 MG CAPSULE (FP) PO SCH (05:43)
--- NOTE | 2016-10-10 09:23 | DS ---
[facility] Detox Discharge Summary Admission Date: 10/06/16 Discharge Date: 10/10/16 - History Present History: Alcohol Dependence Pertinent Past History: AF GOUT GERD HTN NEUROPATHY - Physical Exam Results Vital Signs: Vital Signs Temperature 96.3 F L 10/10/16 06:32 Pulse Rate 56 L 10/10/16 06:32 Respiratory Rate 18 10/10/16 06:32 Blood Pressure 134/97 10/10/16 06:32 O2 Sat by Pulse Oximetry (%) Pertinent Admission Physical Exam Findings: WITHDRAWAL SX. Laboratory Last Values WBC 3.3 K/mm3 (4.0-10.0) L 10/09/16 07:00 RBC 4.63 M/mm3 (4.00-5.60) 10/09/16 07:00 Hgb 14.4 GM/dL (11.7-16.9) 10/09/16 07:00 Hct 44.1 % (35.4-49) 10/09/16 07:00 MCV 95.1 fl (80-96) 10/09/16 07:00 MCHC 32.8 g/dl (32.0-35.9) 10/09/16 07:00 RDW 14.4 % (11.9-15.9) 10/09/16 07:00 Plt Count Not Reportable 10/09/16 07:00 MPV 8.7 fl (7.5-11.1) 10/09/16 07:00 Neutrophils % 40.1 % (42.8-82.8) L 10/09/16 07:00 Lymphocytes % 47.2 % (8-40) H 10/09/16 07:00 Monocytes % 9.5 % (3.8-10.2) 10/09/16 07:00 Eosinophils % 1.9 % (0-4.5) 10/09/16 07:00 Basophils % 1.3 % (0-2.0) 10/09/16 07:00 Nucleated RBCs Cancelled 10/08/16 07:20 Differential Comment Slide scanned 10/07/16 08:00 Hypersegmented Neuts Cancelled 10/08/16 07:20 Toxic Granulation Cancelled 10/08/16 07:20 Dohle Bodies Cancelled 10/08/16 07:20 Genoveva Rods Cancelled 10/08/16 07:20 Platelet Estimate Decreased (NORMAL) 10/09/16 07:00 Platelet Comment Mod plt clumping 10/09/16 07:00 Platelet Comment Unable to enumerate 10/07/16 08:00 Polychromasia Cancelled 10/08/16 07:20 Hypochromic-Microcytic Cancelled 10/08/16 07:20 Poikilocytosis Cancelled 10/08/16 07:20 Basophilic Stippling Cancelled 10/08/16 07:20 Anisocytosis Cancelled 10/08/16 07:20 Microcytosis Cancelled 10/08/16 07:20 Macrocytosis Cancelled 10/08/16 07:20 Spherocytes Cancelled 10/08/16 07:20 Siderocytes Cancelled 10/08/16 07:20 Sickle Cells Cancelled 10/08/16 07:20 Target Cells Cancelled 10/08/16 07:20 Tear Drop Cells Cancelled 10/08/16 07:20 Ovalocytes Cancelled 10/08/16 07:20 Stomatocytes Cancelled 10/08/16 07:20 Helmet Cells Cancelled 10/08/16 07:20 Perez-Emmett Bodies Cancelled 10/08/16 07:20 Sigel Rings Cancelled 10/08/16 07:20 [place] Cells Cancelled 10/08/16 07:20 Acanthocytes (Spur) Cancelled 10/08/16 07:20 Rouleaux Cancelled 10/08/16 07:20 Fragmented RBCs Cancelled 10/08/16 07:20 Schistocytes Cancelled 10/08/16 07:20 Morphology Comment Cancelled 10/08/16 07:20 INR 1.04 (0.82-1.09) 10/07/16 08:00 Sodium 140 mmol/L (136-145) 10/09/16 07:00 Potassium 3.4 mmol/L (3.5-5.1) L 10/09/16 07:00 Chloride 104 mmol/L (98-107) 10/09/16 07:00 Carbon Dioxide 26 mmol/L (21-32) 10/09/16 07:00 Anion Gap 10 (8-16) 10/09/16 07:00 BUN 12 mg/dL (7-18) 10/09/16 07:00 Creatinine 0.7 mg/dL (0.7-1.3) 10/09/16 07:00 Creat Clearance w eGFR > 60 (>60) 10/08/16 07:20 Random Glucose 135 mg/dL (74-106) H D 10/09/16 07:00 Calcium 8.2 mg/dL (8.5-10.1) L 10/09/16 07:00 Total Bilirubin 0.8 mg/dL (0.2-1.0) 10/08/16 07:20 AST 103 U/L (15-37) H D 10/08/16 07:20 ALT 62 U/L (12-78) 10/08/16 07:20 Alkaline Phosphatase 93 U/L (45-117) 10/08/16 07:20 Total Protein 5.9 g/dl (6.4-8.2) L 10/08/16 07:20 Albumin 2.9 g/dl (3.4-5.0) L 10/08/16 07:20 Urine Color Yellow 10/06/16 22:03 Urine Appearance Clear 10/06/16 22:03 Urine pH 5.0 (5.0-8.0) 10/06/16 22:03 Ur Specific [place] 1.024 (1.001-1.035) 10/06/16 22:03 Urine Protein Negative (NEGATIVE) 10/06/16 22:03 Urine Glucose (UA) Negative (NEGATIVE) 10/06/16 22:03 Urine Ketones Negative (NEGATIVE) 10/06/16 22:03 Urine Blood Negative (NEGATIVE) 10/06/16 22:03 Urine Nitrite Negative (NEGATIVE) 10/06/16 22:03 Urine Bilirubin Negative (NEGATIVE) 10/06/16 22:03 Urine Urobilinogen Negative E.U./dl (0.2-1.0) 10/06/16 22:03 Ur Leukocyte Esterase Negative (NEGATIVE) 10/06/16 22:03 RPR Titer Nonreactive (NONREACTIVE) 10/07/16 08:00 HIV 1&2 Antibody Screen Negative 10/07/16 08:00 HIV P24 Antigen Negative 10/07/16 08:00 LABS NOTED,K+ SUPPLEMENT GIVEN. EKG = AF WITH RAPID VENTRICULAR RESPONSE ON ADMISSION PT. WAS NOT TAKING HIS MEDS, REPEAT EKG = AF WITH VR 56 ON METOPROLOL, XARELTO & LISINOPRIL. - Treatment Hospital Course: Detox Protocol Followed, Detoxed Safely, Responded well, Discharged Condition Good, Rehab Referral Accepted - Medication Discharge Medications: Ambulatory Orders Rivaroxaban [Xarelto -] 2.5 mg PO DAILY 06/23/16 Lisinopril [Zestril] 2.5 mg PO DAILY #30 tablet 06/27/16 Metoprolol Tartrate [Lopressor -] 50 mg PO BID #60 tablet 06/27/16 Aspirin Coated [Ecotrin -] 81 mg PO DAILY #30 tablet.ec 07/18/16 Lisinopril [Prinivil] 2.5 mg PO DAILY #30 tablet 07/18/16 Metoprolol Tartrate [Lopressor -] 50 mg PO BID #60 tablet 07/18/16 Mirtazapine [Remeron -] 15 mg PO HS #30 tablet 07/18/16 Naltrexone HCl [Revia -] 50 mg PO DAILY #30 tablet 07/18/16 Ranitidine [Zantac -] 150 mg PO BID #60 tablet 07/18/16 Rivaroxaban [Xarelto -] 20 mg PO DAILY@1700 #30 tablet 07/18/16 Mirtazapine [Remeron -] 15 mg PO HS #30 tablet 10/07/16 - Diagnosis (1) Alcohol dependence with uncomplicated withdrawal Current Visit: Yes Status: Acute (2) Atrial fibrillation Current Visit: Yes Status: Chronic Qualifiers: Atrial fibrillation type: chronic Qualified Code(s): I48.2 - Chronic atrial fibrillation (3) Depressive disorder Current Visit: Yes Status: Chronic (4) GERD (gastroesophageal reflux disease) Current Visit: Yes Status: Chronic Qualifiers: Esophagitis presence: without esophagitis Qualified Code(s): K21.9 - Gastro-esophageal reflux disease without esophagitis (5) Hypertension Current Visit: Yes Status: Chronic Qualifiers: Hypertension type: essential hypertension Qualified Code(s): I10 - Essential (primary) hypertension (6) Neuropathy Current Visit: Yes Status: Chronic - AMA Did Patient Leave Against Medical Advice: No
[2016-10-10 09:46] VITALS: BP 131/96; PULSE 68; TEMP 97
[2016-10-10] MEDS: LISINOPRIL 5 MG TABLET (FP) PO SCH (10:06)
[2016-10-10] MEDS: RANITIDINE HCL 150 MG TABLET (FP) PO SCH (10:06)
[2016-10-10] MEDS: METOPROLOL TARTRATE 50 MG TABLET (FP) PO SCH (10:07)
[2016-10-10] MEDS: RIVAROXABAN 20 MG TABLET PO SCH (10:07)
[2016-10-10] MEDS: POTASSIUM CHLORIDE TABS 20 MEQ TABLET.ER (FP) PO SCH (10:07)
[2016-10-10] MEDS: PRENATAL VITAMINS W/ FOLIC ACID TABLET (FP) PO SCH (10:08)
--- NOTE | 2016-10-10 17:43 | EKG ---
Test Reason : Blood Pressure : / mmHG Vent. Rate : 081 BPM Atrial Rate : 085 BPM P-R Int : 000 ms QRS Dur : 130 ms QT Int : 398 ms P-R-T Axes : 000 -36 009 degrees QTc Int : 462 ms ATRIAL FIBRILLATION LEFT AXIS DEVIATION RIGHT BUNDLE BRANCH BLOCK ABNORMAL ECG WHEN COMPARED WITH ECG OF 06-OCT-2016 20:03, VENT. RATE HAS DECREASED Confirmed by LAZARO SWARTZ MD ([id number]) on 10/10/2016 5:43:05 PM Referred By: Confirmed By:LAZARO SWARTZ MD
== END 2016-10-10 13:20 | disposition home or self-care (01) | DRG 775 ==
LOC: YASAS 13:42 → Y3N 16:20
PROVIDERS: ADMIT Internal Medicine; ATTEND Internal Medicine
PROC: HZ2ZZZZ Detoxification Services for Substance Abuse Treatment (ICD-10-PCS; principal; 2016-10-10)
DX: F10.230 Alcohol dependence with withdrawal, uncomplicated (principal); F10.24 Alcohol dependence with alcohol-induced mood disorder; I48.0 Paroxysmal atrial fibrillation; Z79.01 Long term (current) use of anticoagulants; G62.9 Polyneuropathy, unspecified; K21.9 Gastro-esophageal reflux disease without esophagitis; M10.9 Gout, unspecified
CPT/HCPCS: 36415; 80048; 80053; 81003; 85025; 85027; 85610; 86593; 87389; 93005; 93010

== ENCOUNTER 2017-07-24 11:41 | Inpatient (IN) | payer OTHER ==
[2017-07-24 11:58] VITALS: BMI 31.4
--- NOTE | 2017-07-24 14:16 | HP ---
Admission ROS [facility] - [facility] Chief Complaint: i am here for rehab from alcohol Allergies/Adverse Reactions: Allergies Allergy/AdvReac Type Severity Reaction Status Date / Time No Known Allergies Allergy Verified 07/24/17 14:06 History of Present Illness: this 52 years old male with alcohol dependence,seeking rehab,last treatment [facility] from 07/19/17 to 07/24/17 history of atrial fibrillation on xeralto 20 mgs po daily and metaprolol seizure last 2009 anxiety and depression Exam Limitations: No Limitations - Ebola screening Have you traveled outside of the country in the last 21 days: No Have you had contact with anyone from an Ebola affected area: No Have you been sick,other than usual withdrawal symptoms: No Do you have a fever: No - Review of Systems Constitutional: No Symptoms Reported EENT: reports: No Symptoms Reported Respiratory: reports: No Symptoms reported Cardiac: reports: No Symptoms Reported GI: reports: No Symptoms Reported : reports: No Symptoms Reported Musculoskeletal: reports: No Symptoms Reported Integumentary: reports: No Symptoms Reported Neuro: reports: No Symptoms reported Endocrine: reports: No Symptoms Reported Hematology: reports: No Symptoms Reported Psychiatric: reports: No Sypmtoms Reported, Judgement Intact, Mood/Affect Appropiate, Orientated x3, Anxious Patient History - Patient Medical History Hx Anemia: No Hx Asthma: No Hx Chronic Obstructive Pulmonary Disease (COPD): No Hx Cancer: No Hx Cardiac Disorders: Yes (A fibrilation) Hx Congestive Heart Failure: No Hx Hypertension: Yes Hx Hypercholesterolemia: No Hx Pacemaker: No HX Cerebrovascular Accident: No Hx Seizures: Yes (alcohol r/seizure, last episode 6 months ago) Hx Dementia: No Hx Diabetes: No Hx Gastrointestinal Disorders: Yes Hx Liver Disease: No Hx Genitourinary Disorders: No Hx Sexually Transmitted Disorders: No Hx Renal Disease (ESRD): No Hx Thyroid Disease: No Hx Human Immunodeficiency Virus (HIV): No (LAST 10/20 NEGATIVE) Hx Hepatitis C: No Hx Depression: Yes Hx Suicide Attempt: No Hx Bipolar Disorder: No Hx Schizophrenia: No Other Medical History: no suicidal,no homiidal - Patient Surgical History Past Surgical History: No Hx Neurologic Surgery: No Hx Cataract Extraction: No Hx Cardiac Surgery: No Hx Lung Surgery: No Hx Breast Surgery: No Hx Breast Biopsy: No Hx Abdominal Surgery: No Hx Appendectomy: No Hx Cholecystectomy: No Hx Genitourinary Surgery: No Hx Section: No Hx Orthopedic Surgery: No Hx Hysterectomy: No Anesthesia Reaction: No - PPD History Previous Implant?: Yes Documented Results: Negative w/o proof Date: 06/25/16 Results: 0 mm PPD to be Administered?: Yes - Smoking Cessation Smoking history: Never smoked Have you smoked in the past 12 months: No Aproximately how many cigarettes per day: 0 Cigars Per Day: 0 Hx Chewing Tobacco Use: No - Substances Abused Alcohol Route: Oral Frequency: Daily Amount used: 1 CASE OF BEER Age of first use: 12 Date of Last Use: 07/18/17 Family Disease History - Family Disease History Family Disease History: Other: Father (ALCOHOL,) Admission Physical Exam S - Vital Signs Vital Signs: Vital Signs - 24 hr 07/24/17 11:56 Temperature 96.9 F L Pulse Rate 94 H Respiratory 18 Rate Blood Pressure 117/70 - Physical General Appearance: Yes: Within Normal Limits HEENTM: Yes: Normal ENT Inspection, XU, Pharynx Normal Respiratory: Yes: Within Normal Limits, Lungs Clear, Normal Breath Sounds Neck: Yes: Within Normal Limits Breast: Yes: Within Normal Limits Cardiology: Yes: Within Normal Limits, Regular Rhythm, Regular Rate, S1, S2 Abdominal: Yes: Within Normal Limits, Normal Bowel Sounds, Non Tender, Flat, Soft Genitourinary: Yes: Within Normal Limits Back: Yes: Muscle Spasm Extremities: Yes: Tremors Neurological: Yes: 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 NML intact, Fully Oriented, Alert, Motor Strength 5/5 Integumentary: Yes: Dry Lymphatic: Yes: Within Normal Limits - Diagnostic (1) Alcohol dependence Current Visit: Yes Status: Acute (2) History of atrial fibrillation Current Visit: Yes Status: Acute (3) Depression Current Visit: No Status: Acute (4) Syncope Current Visit: No Status: Acute (5) Atrial fibrillation Current Visit: No Status: Chronic Qualifiers: Atrial fibrillation type: chronic Qualified Code(s): I48.2 - Chronic atrial fibrillation (6) GERD (gastroesophageal reflux disease) Current Visit: No Status: Chronic Qualifiers: Esophagitis presence: without esophagitis Qualified Code(s): K21.9 - Gastro -esophageal reflux disease without esophagitis (7) Neuropathy Current Visit: No Status: Chronic (8) Alcohol related seizure Current Visit: No Status: Suspected Cleared for Admission [facility] - Detox or Rehab Claeared for Rehab Admission: Yes [facility] Breath Alcohol Content Breath Alcohol Content: 0 Urine Drug Screen - Results Drug Screen Negative: No Urine Drug Screen Results: BZO-Benzodiazepines Inpatient Rehab Admission - Initial Determination Are CD services needed?: Yes Free of communicable disease: Yes Not in need of hospitalization: Yes - Rehab Admission Criteria Previous failed treatment: Yes Poor recovery environment: Yes Comorbidities: Yes Patient is meeting Inpatient Rehab admission criteria:: Yes
[2017-07-24] MEDS ORDERED: P-EPHED 60MG/TRIPROLIDI 2.5MG TABLET PO PRN (14:31)
[2017-07-24] MEDS ORDERED: IBUPROFEN 400 MG TABLET (FP) PO PRN (14:31)
[2017-07-24] MEDS ORDERED: MAGNESIUM HYDROX 2400MG/30ML ORAL SUSPENSION 30 ML CUP PO PRN (14:31)
[2017-07-24] MEDS ORDERED: MENTHOL/PHENOL 1 EACH UD MM PRN (14:31)
[2017-07-24] MEDS ORDERED: guaiFENesin/D-METHORPHAN HB 10 ML UNIT-DOSE CUPS PO PRN (14:31)
[2017-07-24] MEDS ORDERED: MAG HYDROX/AL HYDROX/SIMETH 30 ML UNIT-DOSE CUP PO PRN (14:31)
[2017-07-24] MEDS ORDERED: ACETAMINOPHEN 325 MG TABLET (FP) PO PRN (14:31)
[2017-07-24] MEDS ORDERED: MAGNESIUM CITRATE 300 ML BOTTLE PO PRN (14:31)
[2017-07-24] MEDS ORDERED: LOPERAMIDE HCL 2 MG CAPSULE PO PRN (14:31)
[2017-07-24] MEDS: RIVAROXABAN 20 MG TABLET PO SCH (17:10)
[2017-07-24 17:55] LABS: MCH 30.8 pg (25.7-33.7); MCHC 32.4 g/dl (32.0-35.9); MEAN PLT VOLUME 10.4 fl (7.5-11.1); PLATELET COUNT 131 K/MM3 (134-434); RDW 15.6 % (11.9-15.9)
[2017-07-24 18:04] LABS: ALBUMIN 4.1 g/dl (3.4-5.0); ANION GAP 7 (8-16); CALCIUM 9.5 mg/dL (8.5-10.1); CO2 29 mmol/L (21-32); CREATININE 0.9 mg/dL (0.7-1.3); GLUCOSE,RANDOM 99 mg/dL (74-106); SGOT/AST 31 U/L (15-37); SGPT/ALT 50 U/L (12-78)
[2017-07-24 18:05] LABS: URINE APPEARANCE CLOUDY; URINE BILIRUBIN NEGATIVE (NEGATIVE); URINE BLOOD NEGATIVE (NEGATIVE); URINE COLOR AMBER; URINE GLUCOSE (UA) NEGATIVE (NEGATIVE); URINE KETONE NEGATIVE (NEGATIVE); URINE NITRITE NEGATIVE (NEGATIVE); URINE PROTEIN NEGATIVE (NEGATIVE); URINE UROBILINOGEN NEGATIVE mg/dL (0.2-1.0)
[2017-07-24 18:06] LABS: ALK PHOS 95 U/L (45-117); BILIRUBIN,TOTAL 0.5 mg/dL (0.2-1.0); TOT PROT 8.1 g/dl (6.4-8.2)
--- NOTE | 2017-07-24 20:59 | PN ---
[facility] Progress Note Note: received nurse call that the patient needed a ppd
[2017-07-24] MEDS ORDERED: TUBERCULIN PPD 5 TU/0.1ML VIAL ID ONE ×2 (21:03→21:32)
[2017-07-24] MEDS: THIAMINE HCL 100 MG TABLET (FP) PO SCH (21:17)
[2017-07-24 21:31] LABS: URINE LEUK ESTERASE Negative (NEGATIVE)
[2017-07-25] MEDS: hydrOXYzine PAMOATE 50 MG CAPSULE (FP) PO PRN ×2 (01:29→21:22)
[2017-07-25] MEDS: ESCITALOPRAM OXALATE 20 MG TABLET (FP) PO SCH (09:57)
[2017-07-25] MEDS: PRENATAL VITAMINS W/ FOLIC ACID TABLET (FP) PO SCH (09:57)
[2017-07-25] MEDS: METOPROLOL SUCCINATE 100 MG TAB.SR.24H (FP) PO SCH (09:57)
[2017-07-25] MEDS ORDERED: busPIRone HCL 10 MG TABLET (FP) PO SCH (10:00)
--- NOTE | 2017-07-25 10:16 | EKG ---
Test Reason : Blood Pressure : / mmHG Vent. Rate : 100 BPM Atrial Rate : 234 BPM P-R Int : 000 ms QRS Dur : 112 ms QT Int : 324 ms P-R-T Axes : 000 -34 029 degrees QTc Int : 417 ms ATRIAL FIBRILLATION LEFT AXIS DEVIATION RIGHT BUNDLE BRANCH BLOCK ABNORMAL ECG WHEN COMPARED WITH ECG OF 10-OCT-2016 09:17, NO SIGNIFICANT CHANGE WAS FOUND Confirmed by IRAJ GOODE MD ([id number]) on 07/25/2017 10:16:45 AM Referred By: Confirmed By:IRAJ GOODE MD
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
[2017-07-25] MEDS ORDERED: FLU VACCINE QUAD 60 MCG/0.5 ML (MDV 17-18) IM ONE (12:00)
[2017-07-25] MEDS: busPIRone HCL 10 MG TABLET (FP) PO SCH ×2 (13:39→21:21)
[2017-07-25] MEDS: RIVAROXABAN 20 MG TABLET PO SCH (16:43)
[2017-07-25] MEDS: THIAMINE HCL 100 MG TABLET (FP) PO SCH (21:21)
[2017-07-26] MEDS: busPIRone HCL 10 MG TABLET (FP) PO SCH ×3 (07:00→21:23)
[2017-07-26] MEDS: METOPROLOL SUCCINATE 100 MG TAB.SR.24H (FP) PO SCH (09:51)
[2017-07-26] MEDS: PRENATAL VITAMINS W/ FOLIC ACID TABLET (FP) PO SCH (09:51)
[2017-07-26] MEDS: ESCITALOPRAM OXALATE 20 MG TABLET (FP) PO SCH (09:51)
[2017-07-26] MEDS: NALTREXONE HCL 50 MG TABLET PO SCH (09:51)
[2017-07-26] MEDS: RIVAROXABAN 20 MG TABLET PO SCH (16:54)
[2017-07-26] MEDS: hydrOXYzine PAMOATE 50 MG CAPSULE (FP) PO PRN (21:23)
[2017-07-26] MEDS: THIAMINE HCL 100 MG TABLET (FP) PO SCH (21:23)
[2017-07-27] MEDS: busPIRone HCL 10 MG TABLET (FP) PO SCH ×3 (06:12→21:36)
[2017-07-27] MEDS: ESCITALOPRAM OXALATE 20 MG TABLET (FP) PO SCH (09:56)
[2017-07-27] MEDS: PRENATAL VITAMINS W/ FOLIC ACID TABLET (FP) PO SCH (09:56)
[2017-07-27] MEDS: METOPROLOL SUCCINATE 100 MG TAB.SR.24H (FP) PO SCH (09:56)
[2017-07-27] MEDS: NALTREXONE HCL 50 MG TABLET PO SCH (09:56)
[2017-07-27] MEDS: RIVAROXABAN 20 MG TABLET PO SCH (16:57)
[2017-07-27] MEDS: THIAMINE HCL 100 MG TABLET (FP) PO SCH (21:36)
[2017-07-27] MEDS: hydrOXYzine PAMOATE 50 MG CAPSULE (FP) PO PRN (21:37)
[2017-07-28] MEDS: busPIRone HCL 10 MG TABLET (FP) PO SCH ×3 (06:43→21:23)
[2017-07-28] MEDS: PRENATAL VITAMINS W/ FOLIC ACID TABLET (FP) PO SCH (10:15)
[2017-07-28] MEDS: METOPROLOL SUCCINATE 100 MG TAB.SR.24H (FP) PO SCH (10:15)
[2017-07-28] MEDS: NALTREXONE HCL 50 MG TABLET PO SCH (10:15)
[2017-07-28] MEDS: ESCITALOPRAM OXALATE 20 MG TABLET (FP) PO SCH (10:15)
[2017-07-28] MEDS: RIVAROXABAN 20 MG TABLET PO SCH (16:45)
[2017-07-28] MEDS: hydrOXYzine PAMOATE 50 MG CAPSULE (FP) PO PRN (21:23)
[2017-07-28] MEDS: THIAMINE HCL 100 MG TABLET (FP) PO SCH (21:23)
[2017-07-29] MEDS: busPIRone HCL 10 MG TABLET (FP) PO SCH ×3 (06:37→21:36)
[2017-07-29] MEDS: ESCITALOPRAM OXALATE 20 MG TABLET (FP) PO SCH (10:28)
[2017-07-29] MEDS: NALTREXONE HCL 50 MG TABLET PO SCH (10:28)
[2017-07-29] MEDS: PRENATAL VITAMINS W/ FOLIC ACID TABLET (FP) PO SCH (10:28)
[2017-07-29] MEDS: METOPROLOL SUCCINATE 100 MG TAB.SR.24H (FP) PO SCH (10:28)
[2017-07-29] MEDS: RIVAROXABAN 20 MG TABLET PO SCH (16:53)
[2017-07-29] MEDS: THIAMINE HCL 100 MG TABLET (FP) PO SCH (21:36)
[2017-07-29] MEDS: hydrOXYzine PAMOATE 50 MG CAPSULE (FP) PO PRN (21:36)
[2017-07-30] MEDS: busPIRone HCL 10 MG TABLET (FP) PO SCH ×3 (05:56→21:35)
[2017-07-30] MEDS: ESCITALOPRAM OXALATE 20 MG TABLET (FP) PO SCH (10:08)
[2017-07-30] MEDS: METOPROLOL SUCCINATE 100 MG TAB.SR.24H (FP) PO SCH (10:08)
[2017-07-30] MEDS: NALTREXONE HCL 50 MG TABLET PO SCH (10:08)
[2017-07-30] MEDS: PRENATAL VITAMINS W/ FOLIC ACID TABLET (FP) PO SCH (10:08)
[2017-07-30] MEDS: RIVAROXABAN 20 MG TABLET PO SCH (17:03)
[2017-07-30] MEDS: THIAMINE HCL 100 MG TABLET (FP) PO SCH (21:35)
[2017-07-30] MEDS: hydrOXYzine PAMOATE 50 MG CAPSULE (FP) PO PRN (21:36)
[2017-07-31] MEDS: busPIRone HCL 10 MG TABLET (FP) PO SCH ×3 (06:10→21:29)
[2017-07-31] MEDS: METOPROLOL SUCCINATE 100 MG TAB.SR.24H (FP) PO SCH (10:03)
[2017-07-31] MEDS: NALTREXONE HCL 50 MG TABLET PO SCH (10:03)
[2017-07-31] MEDS: PRENATAL VITAMINS W/ FOLIC ACID TABLET (FP) PO SCH (10:03)
[2017-07-31] MEDS: ESCITALOPRAM OXALATE 20 MG TABLET (FP) PO SCH (10:03)
[2017-07-31] MEDS: RIVAROXABAN 20 MG TABLET PO SCH (16:57)
[2017-07-31] MEDS: hydrOXYzine PAMOATE 50 MG CAPSULE (FP) PO PRN (21:29)
[2017-07-31] MEDS: THIAMINE HCL 100 MG TABLET (FP) PO SCH (21:29)
[2017-08-01] MEDS: busPIRone HCL 10 MG TABLET (FP) PO SCH ×3 (06:40→21:27)
[2017-08-01] MEDS: PRENATAL VITAMINS W/ FOLIC ACID TABLET (FP) PO SCH (09:54)
[2017-08-01] MEDS: METOPROLOL SUCCINATE 100 MG TAB.SR.24H (FP) PO SCH (09:54)
[2017-08-01] MEDS: NALTREXONE HCL 50 MG TABLET PO SCH (09:54)
[2017-08-01] MEDS: ESCITALOPRAM OXALATE 20 MG TABLET (FP) PO SCH (09:54)
[2017-08-01] MEDS: RIVAROXABAN 20 MG TABLET PO SCH (16:54)
[2017-08-01] MEDS: THIAMINE HCL 100 MG TABLET (FP) PO SCH (21:27)
[2017-08-02] MEDS: busPIRone HCL 10 MG TABLET (FP) PO SCH ×3 (06:27→21:31)
[2017-08-02] MEDS: PRENATAL VITAMINS W/ FOLIC ACID TABLET (FP) PO SCH (10:09)
[2017-08-02] MEDS: NALTREXONE HCL 50 MG TABLET PO SCH (10:09)
[2017-08-02] MEDS: ESCITALOPRAM OXALATE 20 MG TABLET (FP) PO SCH (10:10)
[2017-08-02] MEDS: METOPROLOL SUCCINATE 100 MG TAB.SR.24H (FP) PO SCH (10:10)
[2017-08-02] MEDS: RIVAROXABAN 20 MG TABLET PO SCH (16:36)
[2017-08-02] MEDS: THIAMINE HCL 100 MG TABLET (FP) PO SCH (21:31)
[2017-08-03] MEDS: busPIRone HCL 10 MG TABLET (FP) PO SCH ×3 (05:58→21:20)
[2017-08-03] MEDS: PRENATAL VITAMINS W/ FOLIC ACID TABLET (FP) PO SCH (09:56)
[2017-08-03] MEDS: METOPROLOL SUCCINATE 100 MG TAB.SR.24H (FP) PO SCH (09:56)
[2017-08-03] MEDS: NALTREXONE HCL 50 MG TABLET PO SCH (09:56)
[2017-08-03] MEDS: ESCITALOPRAM OXALATE 20 MG TABLET (FP) PO SCH (09:56)
[2017-08-03] MEDS: RIVAROXABAN 20 MG TABLET PO SCH (16:56)
[2017-08-03] MEDS: THIAMINE HCL 100 MG TABLET (FP) PO SCH (21:20)
[2017-08-03] MEDS: hydrOXYzine PAMOATE 50 MG CAPSULE (FP) PO PRN (21:21)
[2017-08-04] MEDS: busPIRone HCL 10 MG TABLET (FP) PO SCH ×3 (06:30→21:27)
[2017-08-04] MEDS: METOPROLOL SUCCINATE 100 MG TAB.SR.24H (FP) PO SCH (09:56)
[2017-08-04] MEDS: ESCITALOPRAM OXALATE 20 MG TABLET (FP) PO SCH (09:56)
[2017-08-04] MEDS: NALTREXONE HCL 50 MG TABLET PO SCH (09:56)
[2017-08-04] MEDS: PRENATAL VITAMINS W/ FOLIC ACID TABLET (FP) PO SCH (09:56)
[2017-08-04] MEDS: RIVAROXABAN 20 MG TABLET PO SCH (16:35)
[2017-08-04] MEDS: THIAMINE HCL 100 MG TABLET (FP) PO SCH (21:27)
[2017-08-04] MEDS: hydrOXYzine PAMOATE 50 MG CAPSULE (FP) PO PRN (21:27)
[2017-08-05] MEDS: busPIRone HCL 10 MG TABLET (FP) PO SCH ×3 (06:13→21:26)
[2017-08-05] MEDS: NALTREXONE HCL 50 MG TABLET PO SCH (10:20)
[2017-08-05] MEDS: ESCITALOPRAM OXALATE 20 MG TABLET (FP) PO SCH (10:20)
[2017-08-05] MEDS: PRENATAL VITAMINS W/ FOLIC ACID TABLET (FP) PO SCH (10:20)
[2017-08-05] MEDS: METOPROLOL SUCCINATE 100 MG TAB.SR.24H (FP) PO SCH (10:20)
[2017-08-05] MEDS: RIVAROXABAN 20 MG TABLET PO SCH (16:48)
[2017-08-05] MEDS: THIAMINE HCL 100 MG TABLET (FP) PO SCH (21:26)
[2017-08-05] MEDS: hydrOXYzine PAMOATE 50 MG CAPSULE (FP) PO PRN (21:26)
[2017-08-06] MEDS: busPIRone HCL 10 MG TABLET (FP) PO SCH ×3 (06:51→21:24)
[2017-08-06] MEDS: NALTREXONE HCL 50 MG TABLET PO SCH (10:08)
[2017-08-06] MEDS: ESCITALOPRAM OXALATE 20 MG TABLET (FP) PO SCH (10:08)
[2017-08-06] MEDS: METOPROLOL SUCCINATE 100 MG TAB.SR.24H (FP) PO SCH (10:08)
[2017-08-06] MEDS: PRENATAL VITAMINS W/ FOLIC ACID TABLET (FP) PO SCH (10:08)
[2017-08-06] MEDS: RIVAROXABAN 20 MG TABLET PO SCH (16:35)
[2017-08-06] MEDS: THIAMINE HCL 100 MG TABLET (FP) PO SCH (21:24)
[2017-08-06] MEDS: hydrOXYzine PAMOATE 50 MG CAPSULE (FP) PO PRN (21:24)
[2017-08-07] MEDS: busPIRone HCL 10 MG TABLET (FP) PO SCH (06:16)
[2017-08-07 06:33] VITALS: BP 117/81; PULSE 82; TEMP 98.3
[2017-08-07] MEDS: NALTREXONE HCL 50 MG TABLET PO SCH (10:15)
[2017-08-07] MEDS: METOPROLOL SUCCINATE 100 MG TAB.SR.24H (FP) PO SCH (10:15)
[2017-08-07] MEDS: ESCITALOPRAM OXALATE 20 MG TABLET (FP) PO SCH (10:15)
[2017-08-07] MEDS: PRENATAL VITAMINS W/ FOLIC ACID TABLET (FP) PO SCH (10:15)
--- NOTE | 2017-08-07 10:24 | PN ---
Psychiatric Progress Note Vital Signs: Vital Signs Period Temp Pulse Resp BP Sys/Ambriz Pulse Ox Last 24 Hr 98.3 F 82 16-18 117/81 Date of Session: 08/07/17 Chief Complaint:: discharge visit HPI: Patient has addressed alcohol dependence comorbid alcohol induced anxiety and mood disorder. ROS: HTN, Afib,alcohol related seizure, GERD, gout and fractured ribs medically managed. Current Medications: Active Medications Generic Name Dose Route Start Last Admin Trade Name Freq PRN Reason Stop Dose Admin Acetaminophen 650 mg 07/24/17 14:31 Tylenol - PO Q4H PRN PAIN Al Hydroxide/Mg Hydroxide 30 ml 07/24/17 14:31 Mylanta Oral Suspension - PO Q6H PRN DYSPEPSIA Buspirone HCl 10 mg 07/25/17 14:00 08/07/17 06:16 Buspar - PO 10 mg TID JASMIN Administration Escitalopram Oxalate 20 mg 07/25/17 10:00 08/07/17 10:15 Lexapro - PO 20 mg DAILY JASMIN Administration Eucalyptus/Menthol/Phenol/Sorbitol 1 each 07/24/17 14:31 Cepastat Lozenge - MM Q4H PRN SORE THROAT Guaifenesin 10 ml 07/24/17 14:31 Robitussin Dm - PO Q6H PRN COUGH Hydroxyzine Pamoate 50 mg 07/24/17 14:31 08/06/17 21:24 Vistaril - PO 50 mg Q4H PRN Administration AGITATION Loperamide HCl 4 mg 07/24/17 14:31 Imodium - PO Q6H PRN DIARRHEA Magnesium Citrate 300 ml 07/24/17 14:31 Citroma - PO Q48H PRN CONSTIPATION Magnesium Hydroxide 30 ml 07/24/17 14:31 Milk Of Magnesia - PO DAILY PRN CONSTIPATION Metoprolol Succinate 100 mg 07/25/17 10:00 08/07/17 10:15 Toprol Xl - PO 100 mg DAILY JASMIN Administration Naltrexone HCl 50 mg 07/26/17 10:00 08/07/17 10:15 Revia - PO 50 mg DAILY JASMIN Administration Multivit/Folic Acid/Iron 1 tab 07/25/17 10:00 08/07/17 10:15 Vitamins (Sjr) - PO 1 tab DAILY JASMIN Administration Pseudoephedrine/Triprolidine 1 combo 07/24/17 14:31 Actifed - PO TID PRN NASAL CONGESTION Rivaroxaban 20 mg 07/24/17 17:00 08/06/17 16:35 Xarelto - PO 20 mg DAILY@1700 JASMIN Administration Thiamine HCl 100 mg 07/24/17 22:00 08/06/17 21:24 Vitamin B1 - PO 100 mg HS JASMIN Administration Current Side Effect: No Lab tests ordered: No Lab tests reviewed: Yes Provider note:: Patient has completed today his treatment and met his goals, will continue to address his issues at [facility] OPD. He focused on importance of changing attitudes, continue maintain abstinence, utilize all supports available and use alternative ways to cope with the stressors to prevent relapses. Patient continue finding Buspar, Lexapro effective in terms of anxiety reduction and mood improvement, Naltrexone for alcohol dependence, medications well tolerated, scripts provided for 30 days, stable for discharge today. Total face to face time:: 25 Mental Status Exam - Mental Status Exam Alert and Oriented to: Time, Place, Person Cognitive Function: Good Patient Appearance: Well Groomed Mood: Hopeful Affect: Appropriate, Mood Congruent Patient Behavior: Appropriate, Cooperative Speech Pattern: Clear, Appropriate Voice Loudness: Normal Thought Process: Intact Thought Disorder: Not Present Hallucinations: Denies Suicidal Ideation: Denies Homicidal Ideation: Denies Insight/Judgement: Fair Sleep: Fair Appetite: Fair Muscle strength/Tone: Normal Gait/Station: Normal Psychiatric Treatment Plan - Problem List (1) Alcohol-induced anxiety disorder Current Visit: Yes (2) Alcohol dependence Current Visit: Yes (3) Alcohol-induced mood disorder Current Visit: No (4) GERD (gastroesophageal reflux disease) Current Visit: No Qualifiers: Esophagitis presence: without esophagitis Qualified Code(s): K21.9 - Gastro -esophageal reflux disease without esophagitis (5) Gout Current Visit: No (6) Hypertension Current Visit: No Qualifiers: Hypertension type: essential hypertension Qualified Code(s): I10 - Essential (primary) hypertension
== END 2017-08-07 10:55 | disposition home or self-care (01) | DRG 772 ==
LOC: YASAS 11:41 → Y5N 14:38
PROVIDERS: ADMIT Psychiatry & Neurology Psychiatry; ATTEND Psychiatry & Neurology Psychiatry
PROC: HZ42ZZZ Group Counseling for Substance Abuse Treatment, Cognitive-Behavioral (ICD-10-PCS; principal; 2017-07-24)
DX: F10.20 Alcohol dependence, uncomplicated (principal); F10.282 Alcohol dependence with alcohol-induced sleep disorder; F10.24 Alcohol dependence with alcohol-induced mood disorder; F33.9 Major depressive disorder, recurrent, unspecified; I48.91 Unspecified atrial fibrillation; I10 Essential (primary) hypertension; K21.9 Gastro-esophageal reflux disease without esophagitis; G62.9 Polyneuropathy, unspecified; M10.9 Gout, unspecified; Z86.69 Personal history of other diseases of the nervous system and sense organs
CPT/HCPCS: 36415; 80053; 81003; 85027; 86593; 90688; 93005; 93010

== ENCOUNTER 2019-09-23 18:46 | Inpatient (IN) | payer OTHER ==
[2019-09-23 19:55] VITALS: BMI 33.2
--- NOTE | 2019-09-24 02:22 | HP ---
CIWA Score Nausea/Vomitin Muscle Tremors: 4-Moderate,w/Arms Extend Anxiety: 4-Mod. Anxious/Guarded Agitation: 3 Paroxysmal Sweats: 4-Forehead w/Sweat Beads Orientation: 0-Oriented Tacttile Disturbances: 0-None Auditory Disturbances: 0-None Visual Disturbances: 0-None Headache: 0-None Present CIWA-Ar Total Score: 17 - Admission Criteria OASAS Guidelines: Admission for Medically Managed Detox: Requires at least one of the followin. CIWA greater than 12 2. Seizures within the past 24 hours 3. Delirium tremens within the past 24 hours 4. Hallucinations within the past 24 hours 5. Acute intervention needed for co occurring medical disorder 6. Acute intervention needed for co occurring psychiatric disorder 7. Severe withdrawal that cannot be handled at a lower level of care (continued vomiting, continued diarrhea, abnormal vital signs) requiring intravenous medication and/or fluids 8. Admitting History and Physical - Smoking History Smoking history: Never smoked Have you smoked in the past 12 months: No Aproximately how many cigarettes per day: 0 - Alcohol/Substance Use Hx Alcohol Use: Yes (daily 2pints of vodka) Admission [facility] Chief Complaint: Alcohol withdrawal symptoms Allergies/Adverse Reactions: Allergies Allergy/AdvReac Type Severity Reaction Status Date / Time No Known Allergies Allergy Verified 09/23/19 19:43 History of Present Illness: 54 years old male with a long history of alcohol dependence (since age 12) is seeking admission to detox. Patient has been in multiple detox and reports eight months of sobriety. Patient has medical history of AFIB, hypertension, GERD, Gout, Neuropathy, seizures and psych history of depression and anxiety. He denies suicide attempt and suicidal ideation at this time. Exam Limitations: No Limitations - Ebola screening Have you traveled outside of the country in the last 21 days: No (N) Have you had contact with anyone from an Ebola affected area: No Do you have a fever: No - Review of Systems Constitutional: Chills, Loss of Appetite, Malaise, Night Sweats, Changes in sleep EENT: reports: Nose Congestion Respiratory: reports: No Symptoms reported Cardiac: reports: No Symptoms Reported GI: reports: Diarrhea, Nausea, Poor Appetite, Poor Fluid Intake, Abdominal cramping : reports: No Symptoms Reported Musculoskeletal: reports: No Symptoms Reported Integumentary: reports: Dryness, Flushing Neuro: reports: Tremors Endocrine: reports: No Symptoms Reported Hematology: reports: No Symptoms Reported Psychiatric: reports: Mood/Affect Appropiate, Orientated x3, Anxious, Depressed Other Systems: Reviewed and Negative Patient History - Patient Medical History Hx Anemia: No Hx Asthma: No Hx Chronic Obstructive Pulmonary Disease (COPD): No Hx Cancer: No Hx Cardiac Disorders: Yes (A fibrilation) Hx Congestive Heart Failure: No Hx Hypertension: Yes Hx Hypercholesterolemia: No Hx Pacemaker: No HX Cerebrovascular Accident: No Hx Seizures: Yes (alcohol r/seizure, last episode 6 months ago) Hx Dementia: No Hx Diabetes: No Hx Gastrointestinal Disorders: Yes (GERD) Hx Liver Disease: No Hx Genitourinary Disorders: No Hx Sexually Transmitted Disorders: No Hx Renal Disease (ESRD): No Hx Thyroid Disease: No Hx Human Immunodeficiency Virus (HIV): No (LAST 10/20 NEGATIVE) Hx Hepatitis C: No Hx Depression: Yes Hx Suicide Attempt: No (Denies suicidal ideation at this time) Hx Bipolar Disorder: No Hx Schizophrenia: No Other Medical History: ANXIETY - Patient Surgical History Past Surgical History: No Hx Neurologic Surgery: No Hx Cataract Extraction: No Hx Cardiac Surgery: No Hx Lung Surgery: No Hx Abdominal Surgery: No Hx Appendectomy: No Hx Cholecystectomy: No Hx Genitourinary Surgery: No Hx Orthopedic Surgery: No Hx Hysterectomy: No Anesthesia Reaction: No - PPD History Previous Implant?: Yes Documented Results: Negative w/proof Implanted On Prior [facility] Admission?: Yes Date: 07/26/17 Results: 0 mm PPD to be Administered?: Yes - Reproductive History Patient is a Female of Child Bearing Age (11 -55 yrs old): No (male) - Smoking Cessation Smoking history: Never smoked Have you smoked in the past 12 months: No Aproximately how many cigarettes per day: 0 Cigars Per Day: 0 Hx Chewing Tobacco Use: No Initiated information on smoking cessation: No - Substance & Tx. History Hx Alcohol Use: Yes Hx Substance Use: No Substance Use Type: Alcohol Hx Substance Use Treatment: Yes ([facility]) - Substances abused Alcohol Substance route: Oral Frequency: Daily Amount used: 1 liter of vodka/ some beers. Age of first use: 12 Date of last use: 09/23/19 Admission Physical Exam [facility] - Vital Signs Vital Signs: Vital Signs - 24 hr 09/23/19 09/23/19 19:42 20:13 Temperature 96.9 F L 96.9 F L Pulse Rate 77 77 Respiratory 18 18 Rate Blood Pressure 107/77 107/77 - Physical General Appearance: Yes: Within Normal Limits, Tremorous, Sweating, Anxious HEENTM: Yes: Within Normal Limits Respiratory: Yes: Lungs Clear, Normal Breath Sounds, No Respiratory Distress Neck: Yes: Within Normal Limits Breast: Yes: Breast Exam Deferred Cardiology: Yes: Regular Rhythm, Regular Rate Abdominal: Yes: Normal Bowel Sounds, Protuberent Genitourinary: Yes: Within Normal Limits Back: Yes: Normal Inspection Musculoskeletal: Yes: Within Normal Limits Extremities: Yes: Tremors Neurological: Yes: Alert, Normal Mood/Affect Integumentary: Yes: Warm Lymphatic: Yes: Within Normal Limits - Diagnostic (1) Anxiety Current Visit: Yes Status: Chronic (2) Alcohol dependence with uncomplicated withdrawal Current Visit: Yes Status: Acute (3) Depression Current Visit: Yes Status: Chronic Qualifiers: Depression Type: unspecified Qualified Code(s): F32.9 - Major depressive disorder, single episode, unspecified (4) MDD (major depressive disorder), recurrent episode Current Visit: Yes Status: Acute Qualifiers: Major depression episode severity: unspecified Qualified Code(s): F33.9 - Major depressive disorder, recurrent, unspecified (5) Atrial fibrillation Current Visit: Yes Status: Chronic Qualifiers: Atrial fibrillation type: unspecified Qualified Code(s): I48.91 - Unspecified atrial fibrillation (6) Depressive disorder Current Visit: Yes Status: Chronic (7) GERD (gastroesophageal reflux disease) Current Visit: Yes Status: Chronic Qualifiers: Esophagitis presence: without esophagitis Qualified Code(s): K21.9 - Gastro -esophageal reflux disease without esophagitis (8) Gout Current Visit: Yes Status: Chronic (9) Hypertension Current Visit: Yes Status: Chronic Qualifiers: Hypertension type: essential hypertension Qualified Code(s): I10 - Essential (primary) hypertension (10) Neuropathy Current Visit: Yes Status: Chronic (11) Alcohol related seizure Current Visit: Yes Status: Suspected Cleared for Admission [facility] - Detox or Rehab S Level of Care: Medically Managed Detox Regimen/Protocol: Librium Breathalyzer - Breathalyzer Breathalyzer: 0.034 Urine Drug Screen - Test Device Lot number: [id number] Expiration date: 04/02/21 - Control Is test valid?: Yes - Results Drug screen NEGATIVE: Yes Inpatient Rehab Admission - Rehab Decision to Admit Inpatient rehab admission?: No
[2019-09-24] MEDS ORDERED: hydrOXYzine PAMOATE 25 MG CAPSULE (FP) PO PRN (02:32)
[2019-09-24] MEDS ORDERED: MAG HYDROX/AL HYDROX/SIMETH 30 ML UNIT-DOSE CUP PO PRN (02:32)
[2019-09-24] MEDS ORDERED: MAGNESIUM HYDROX 2400MG/30ML ORAL SUSPENSION 30 ML CUP PO PRN (02:32)
[2019-09-24] MEDS ORDERED: MENTHOL/PHENOL 1 EACH UD MM PRN (02:32)
[2019-09-24] MEDS ORDERED: MAGNESIUM CITRATE 300 ML BOTTLE PO PRN (02:32)
[2019-09-24] MEDS ORDERED: METHOCARBAMOL 500 MG TABLET PO PRN (02:32)
[2019-09-24] MEDS ORDERED: BISMUTH SUBSALICYLATE 524 MG/30 ML UD PO PRN (02:32)
[2019-09-24] MEDS ORDERED: IBUPROFEN 400 MG TABLET (FP) PO PRN (02:32)
[2019-09-24] MEDS ORDERED: chlordiazePOXIDE HCL 25 MG CAPSULE PO PRN (02:32)
[2019-09-24] MEDS ORDERED: ACETAMINOPHEN 325 MG TABLET (FP) PO PRN ×2 (02:32)
[2019-09-24] MEDS ORDERED: MELATONIN 5 MG TABLETS PO PRN (02:32)
[2019-09-24] MEDS: chlordiazePOXIDE HCL 25 MG CAPSULE PO SCH ×4 (05:26→23:07)
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
[2019-09-24] MEDS ORDERED: PRENATAL VITAMINS W/ FOLIC ACID TABLET (FP) PO SCH (10:00)
[2019-09-24] MEDS ORDERED: P-EPHED 60MG/TRIPROLIDI 2.5MG TABLET PO PRN (10:15)
[2019-09-24] MEDS ORDERED: SODIUM CHLORIDE NASAL SPRAY 44 ML BOTTLE NS PRN (10:15)
[2019-09-24] MEDS ORDERED: ALBUTEROL SO4 2.5/IPRATROPIUM 0.5 INH SOL 3 ML VIAL.NEB. NEB PRN (10:15)
--- NOTE | 2019-09-24 10:32 | EKG ---
Test Reason : Blood Pressure : / mmHG Vent. Rate : 124 BPM Atrial Rate : 129 BPM P-R Int : 000 ms QRS Dur : 112 ms QT Int : 340 ms P-R-T Axes : 000 142 038 degrees QTc Int : 488 ms POOR DATA QUALITY, INTERPRETATION MAY BE ADVERSELY AFFECTED ATRIAL FIBRILLATION WITH RAPID VENTRICULAR RESPONSE RIGHT BUNDLE BRANCH BLOCK ABNORMAL ECG WHEN COMPARED WITH ECG OF 24-JUL-2017 17:28, QRS AXIS SHIFTED RIGHT NONSPECIFIC T WAVE ABNORMALITY NOW EVIDENT IN LATERAL LEADS Confirmed by RUSSEL CORREA, IRAJ ([id number]) on 09/24/2019 10:31:52 AM Referred By: Eric Chatman Confirmed By:IRAJ GOODE MD
[2019-09-24 10:48] VITALS: BP 129/81; PULSE 81; TEMP 98.1
--- NOTE | 2019-09-24 11:47 | PN ---
BHS Progress Note (SOAP) Subjective: Palpitations , mild sob Objective: 09/24/19 11:41 Vital Signs Temperature 98.1 F 09/24/19 10:47 Pulse Rate 81 09/24/19 10:47 Respiratory Rate 16 09/24/19 10:47 Blood Pressure 129/81 09/24/19 10:47 O2 Sat by Pulse Oximetry (%) pending labs ekg- A Fib , ventricular rate 142/m , ICRBBB, RAD pt aox3 ambulating Assessment: 09/24/19 11:44 Afib with rapid ventricular rate 142/m - Pt has not been on usual meds > 1 month Alcohol detox Plan: cont . detox o2 by nc 2/m ED referrral for further evaluation/tx. pt. signed out to Dr. Grande in ED empress ambulette activated
[2019-09-24] MEDS ORDERED: SUVOREXANT 10 MG TABLET PO PRN (22:00)
[2019-09-24] MEDS ORDERED: THIAMINE HCL 100 MG TABLET (FP) PO SCH (22:00)
[2019-09-25] MEDS ORDERED: chlordiazePOXIDE HCL 25 MG CAPSULE PO SCH (05:00)
--- NOTE | 2019-09-25 09:06 | DS ---
[facility] Detox Discharge Summary Admission Date: 09/24/19 Discharge Date: 09/24/19 - History Present History: Alcohol Dependence - Physical Exam Results Vital Signs: Vital Signs Temperature 98.1 F 09/24/19 10:47 Pulse Rate 81 09/24/19 10:47 Respiratory Rate 16 09/24/19 10:47 Blood Pressure 129/81 09/24/19 10:47 O2 Sat by Pulse Oximetry (%) Pertinent Admission Physical Exam Findings: Vital Signs Temperature 98.1 F 09/24/19 10:47 Pulse Rate 81 09/24/19 10:47 Respiratory Rate 16 09/24/19 10:47 Blood Pressure 129/81 09/24/19 10:47 O2 Sat by Pulse Oximetry (%) aaox3 sent to [facility] ed for treatment. - Treatment Patient has Accepted a Rehab Referral to: pt sent to [facility] ED for evaluation - Medication Discharge Medications: Ambulatory Orders Buspirone HCl [Buspar -] 10 mg PO DAILY #30 tablet 08/07/17 Escitalopram Oxalate [Lexapro -] 20 mg PO DAILY #30 tablet 08/07/17 Metoprolol Succinate [Toprol XL -] 100 mg PO DAILY #30 tab.sr.24h 08/07/17 Rivaroxaban [Xarelto -] 20 mg PO DAILY@1700 #30 tablet 08/07/17 - Diagnosis (1) Alcohol dependence with uncomplicated withdrawal Status: Chronic (2) Atrial fibrillation with rapid ventricular response Status: Chronic (3) Elevated brain natriuretic peptide (BNP) level Status: Acute (4) Alcohol-induced anxiety disorder Status: Acute (5) Alcohol-induced mood disorder Status: Acute (6) Alcohol-induced sleep disorder Status: Acute (7) History of atrial fibrillation Status: Chronic (8) MDD (major depressive disorder), recurrent episode Status: Acute Qualifiers: Major depression episode severity: unspecified Qualified Code(s): F33.9 - Major depressive disorder, recurrent, unspecified (9) Syncope Status: Acute (10) Anxiety Status: Chronic (11) Depression Status: Chronic Qualifiers: Depression Type: unspecified Qualified Code(s): F32.9 - Major depressive disorder, single episode, unspecified (12) Depressive disorder Status: Chronic (13) GERD (gastroesophageal reflux disease) Status: Chronic Qualifiers: Esophagitis presence: without esophagitis Qualified Code(s): K21.9 - Gastro -esophageal reflux disease without esophagitis (14) Hypertension Status: Chronic Qualifiers: Hypertension type: essential hypertension Qualified Code(s): I10 - Essential (primary) hypertension (15) Neuropathy Status: Chronic (16) Nicotine dependence Status: Chronic Qualifiers: Nicotine product type: cigarettes Substance use status: uncomplicated Qualified Code(s): F17.210 - Nicotine dependence, cigarettes, uncomplicated (17) Alcohol related seizure Status: Resolved (18) Atrial fibrillation Status: Chronic Qualifiers: Atrial fibrillation type: unspecified Qualified Code(s): I48.91 - Unspecified atrial fibrillation - AMA Did Patient Leave Against Medical Advice: No (Sent to [place] ED and admitted)
--- NOTE | 2019-09-25 15:15 | EKG ---
Test Reason : Blood Pressure : / mmHG Vent. Rate : 142 BPM Atrial Rate : 111 BPM P-R Int : 000 ms QRS Dur : 108 ms QT Int : 330 ms P-R-T Axes : 000 221 021 degrees QTc Int : 507 ms ATRIAL FIBRILLATION WITH RAPID VENTRICULAR RESPONSE RIGHT SUPERIOR AXIS DEVIATION INCOMPLETE RIGHT BUNDLE BRANCH BLOCK POSSIBLE RIGHT VENTRICULAR HYPERTROPHY ABNORMAL ECG WHEN COMPARED WITH ECG OF 24-SEP-2019 02:55, NO SIGNIFICANT CHANGE WAS FOUND Confirmed by CHANDLER CORREA, LUIS ([id number]) on 09/25/2019 3:15:27 PM Referred By: Eric Chatman Confirmed By:LUIS ARTEAGA MD
[2019-09-26] MEDS ORDERED: chlordiazePOXIDE HCL 10 MG CAPSULE PO PRN
[2019-09-26] MEDS ORDERED: chlordiazePOXIDE HCL 10 MG CAPSULE PO SCH (05:00)
[2019-09-27] MEDS ORDERED: chlordiazePOXIDE HCL 10 MG CAPSULE PO SCH (05:00)
[2019-09-28] MEDS ORDERED: chlordiazePOXIDE HCL 10 MG CAPSULE PO ONE (05:00)
== END 2019-09-24 23:59 | disposition short-term general hospital (02) | DRG 775 ==
LOC: YASAS 18:46 → Y6N 09-24 02:49
PROVIDERS: ADMIT Allergy & Immunology; ATTEND Allergy & Immunology
PROC: HZ2ZZZZ Detoxification Services for Substance Abuse Treatment (ICD-10-PCS; principal; 2019-09-24)
DX: F10.230 Alcohol dependence with withdrawal, uncomplicated (principal); F10.280 Alcohol dependence with alcohol-induced anxiety disorder; F10.282 Alcohol dependence with alcohol-induced sleep disorder; F10.24 Alcohol dependence with alcohol-induced mood disorder; F41.9 Anxiety disorder, unspecified; F31.9 Bipolar disorder, unspecified; I48.20 Chronic atrial fibrillation, unspecified; Z79.01 Long term (current) use of anticoagulants; I10 Essential (primary) hypertension; K21.9 Gastro-esophageal reflux disease without esophagitis; R79.89 Other specified abnormal findings of blood chemistry; G62.9 Polyneuropathy, unspecified; M10.9 Gout, unspecified; Z86.69 Personal history of other diseases of the nervous system and sense organs
CPT/HCPCS: 93005; 93010

== ENCOUNTER 2019-09-24 12:41 | Inpatient (IN) | payer OTHER ==
[2019-09-24] MEDS ORDERED: METOPROLOL TARTRATE 5 MG/5 ML VIAL IVPUSH ONE (13:26)
--- NOTE | 2019-09-24 13:26 | PDOC ---
History of Present Illness - General Chief Complaint: Irregular Heart Beat Stated Complaint: Palpitations Time Seen by Provider: 09/24/19 13:16 - History of Present Illness Initial Comments: Josh Hunt is a 54yo man with a PMH of a-fib (on xarelto and metoprolol), HTN, alcohol abuse who was sent to the ED from detox due to tachycardia. Per Mr Hunt , he has been off of his home medications for the past month due to losing his insurance. He was admitted to detox at [facility] today and had an EKG completed showing HR in the 140's. He endorsed not taking his home meds recently and was sent to the ED for additional avaluation and management. Mr Hunt reports that he has been short of breath today. He also reports dizziness but says that he attributed this to alcohol withdrawal. He denies fevers, chest pain, headache, focal neurological symptoms, or other current complaints. Past History - Past Medical History Allergies/Adverse Reactions: Allergies Allergy/AdvReac Type Severity Reaction Status Date / Time No Known Allergies Allergy Verified 09/24/19 13:00 Home Medications: Ambulatory Orders Buspirone HCl [Buspar -] 10 mg PO DAILY #30 tablet 08/07/17 Escitalopram Oxalate [Lexapro -] 20 mg PO DAILY #30 tablet 08/07/17 Metoprolol Succinate [Toprol XL -] 100 mg PO DAILY #30 tab.sr.24h 08/07/17 Rivaroxaban [Xarelto -] 20 mg PO DAILY@1700 #30 tablet 08/07/17 Anemia: No Asthma: No Cancer: No Cardiac Disorders: Yes (A fibrilation) CVA: No COPD: No CHF: No Dementia: No Diabetes: No GI Disorders: Yes (GERD) Disorders: No HTN: Yes Hypercholesterolemia: No Kidney Stones: No Liver Disease: No Seizures: Yes (alcohol r/seizure, last episode 6 months ago) Thyroid Disease: No - Surgical History Abdominal Surgery: No Appendectomy: No Cardiac Surgery: No Cholecystectomy: No Lung Surgery: No Neurologic Surgery: No Orthopedic Surgery: No - Reproductive History Testicular Surgery: No - Psycho Social/Smoking Cessation Hx Smoking History: Unknown if ever smoked Have you smoked in the past 12 months: No Number of Cigarettes Smoked Daily: 0 Cigars Per Day: 0 Information on smoking cessation initiated: No Hx Alcohol Use: No Drug/Substance Use Hx: No Substance Use Type: Alcohol Hx Substance Use Treatment: Yes ([facility]) Review of Systems - Review of Systems Comments:: General: No fevers, no chills, no weight or appetite change, no malaise HEENT: No changes in vision, no changes in hearing, no congestion, no sore throat CV: No chest pain, + palpitations, no LE edema Pulm: + SOB, no cough, no wheezing GI: No nausea or vomiting, no change in bowel habits, no melena : No frequency, no urgency, no dysuria Musc: No back pain, no joint swelling, no recent injury Skin: No rash, no lesions, no erythema Endo: No excessive thirst, no heat/cold intolerance Heme: No unusual bruising or bleeding, no swollen glands Neuro: No syncope, no numbness/tingling, no focal weakness Vasc: No claudication Psych: No recent change in mood, no SI or HI *Physical Exam - Vital Signs Last Vital Signs Temp Pulse Resp BP Pulse Ox 97.8 F 126 H 16 128/100 100 09/24/19 12:50 09/24/19 12:50 09/24/19 12:50 09/24/19 12:50 09/24/19 12:50 - Physical Exam General: Comfortable, no acute distress HEENT: PERRL, EOMI, MMM, voice normal, normal neck ROM Cards: Tachycardic, irregular, no murmur appreciated Pulm: Comfortable on room air, clear to auscultation bilaterally Abd: Soft, nontender, nondistended Ext: Atraumatic. No LE edema. ROM intact. WWP Skin: Normal color, no rashes or lesions Neuro: A&Ox3, CN grossly intact, normal speech, motor/sensory grossly intact and symmetric Psych: Mood appropriate to situation ED Treatment Course - LABORATORY CBC & Chemistry Diagram: 09/24/19 13:10 09/24/19 13:10 Medical Decision Making - Medical Decision Making 09/24/19 13:25 Josh Hunt is a 54yo man with a PMH of a-fib (on xarelto and metoprolol), HTN, alcohol abuse who presents to the ED from detox with HR in the 140's today. He states he has not taken his home meds for one month. He currently complains of SOB and dizziness. - Likely a-fib w/ RVR secondary to known a-fib and medical noncompliance - EKG on arrival w/ A-fib, HR 125, normal axis, long QTc 508. - Pt takes metoprolol at home. Will give 5mg IV and home dose 100mg metoprolol XL 09/24/19 14:56 - Labs pending - Now with diaphoresis, continued tachycardia in low 100's. Tremors in extended hands. Giving 5mg diazepam for alcohol withdrawal symptoms 09/24/19 14:47 - Labs reviewed. Notable for BNP 2700. No h/o known CHF. - Fluid overload could be contributing to a-fib w/ RVR - Continued diaphresis, hand tremors, tachycardia. Will give additional valium - Given multiple current medical problems including withdrawal with continued symptoms after medication, a-fib w/ RVR, possible CHF previously undiagnosed, will admit for additional management in the hospital rather than d/c to detox 09/24/19 15:23 - Sign out given to Dr Arriaga Discussed with Dr Harjinder Alexander PGY2 Discharge - Discharge Information Problems reviewed: Yes Clinical Impression/Diagnosis: Atrial fibrillation with rapid ventricular response, Alcohol dependence with uncomplicated withdrawal, Elevated brain natriuretic peptide (BNP) level - Admission Yes - Follow up/Referral - Patient Discharge Instructions - Post Discharge Activity
[2019-09-24] MEDS ORDERED: METOPROLOL TARTRATE 5 MG/5 ML VIAL ONE (13:44)
[2019-09-24 13:52] LABS: BASO % 0.8 % (0-2.0); EOS % 0.8 % (0-4.5); HEMATOCRIT 36.6 % (35.4-49); HEMOGLOBIN 12.4 GM/dL (11.7-16.9); LYMPH % 10.2 % (8-40); MCH 33.8 pg (25.7-33.7); MCHC 33.8 g/dl (32.0-35.9); MEAN PLT VOLUME 7.7 fl (7.5-11.1); MONO % 13.6 % (3.8-10.2); NEUT % 74.6 % (42.8-82.8); PLATELET COUNT 75 K/MM3 (134-434); RBC 3.66 M/mm3 (4.00-5.60); RDW 16.9 % (11.9-15.9); WHITE BLOOD COUNT 4.1 K/mm3 (4.0-10.0)
[2019-09-24] MEDS ORDERED: diazePAM CARPU-JECT 10 MG/2 ML DISP.SYRIN IVPUSH ONE ×2 (14:00→14:55)
[2019-09-24] MEDS ORDERED: diazePAM CARPU-JECT 10 MG/2 ML DISP.SYRIN ONE ×2 (14:03→14:57)
[2019-09-24 14:36] LABS: ALBUMIN 3.6 g/dl (3.4-5.0); BILIRUBIN,TOTAL 2.3 mg/dL (0.2-1); BLOOD UREA NITROGEN 11.8 mg/dL (7-18); CALCIUM 8.4 mg/dL (8.5-10.1); CREATININE 0.6 mg/dL (0.55-1.3); POTASSIUM 3.9 mmol/L (3.5-5.1); TOT PROT 6.9 g/dl (6.4-8.2)
--- NOTE | 2019-09-24 14:55 | PDOC ---
Documentation entered by Ingrid Michaels SCRIBE, acting as scribe for Nayla Grande MD. Nayla Grande MD: This documentation has been prepared by the Xenia ramirez Adrianna, SCRIBE, under my direction and personally reviewed by me in its entirety. I confirm that the documentation accurately reflects all work, treatment, procedures, and medical decision making performed by me. Attending Attestation - Resident Resident Name: BenjaminMouna - ED Attending Attestation I have performed the following: I have examined & evaluated the patient, The case was reviewed & discussed with the resident, I agree w/resident's findings & plan, Exceptions are as noted - HPI HPI: The patient is a 54 year old male, with a significant PMH of alcohol abuse ( currently undergoing detox at [facility]), Afib (on Xarelto), GERD, HTN, and seizures (2/2 EtOH), who presents to the ED BIBEMS from [facility] for evaluation of Afib with RVR on ECG. Patient has not been on his usual daily medications for over a month, secondary to not having insurance at this time. He endorses some associated SOB and lightheadedness while in the ED. Allergies: NKA, NKDA Surgical History: None reported Social History: EtOH abuse - Physicial Exam PE: 09/24/19 14:22 GENERAL: The patient is in no acute distress, alert and oriented x3, patient noted to be sweating, tongue fasciculations noted ENT: Ears normal, nares patent, oropharynx clear without exudates. Dry mucous membranes. NECK: Normal range of motion, supple LUNGS: Breath sounds equal, clear to auscultation bilaterally. No wheezes, and no crackles. HEART: Irregularly irregular, tachycardic, no murmurs appreciated ABDOMEN: Soft, nontender, normoactive bowel sounds. EXTREMITIES: Tremulousness noted, normal range of motion, no edema. NEUROLOGICAL: Cranial nerves II through XII grossly intact. Normal speech. No focal neurological deficits. SKIN: Warm, Dry, normal turgor, no rashes or lesions noted. - Medical Decision Making 09/24/19 14:23 54-year-old male presenting to the emergency department due to atrial fibrillation with rapid ventricular response noted at [facility] Pt has been non compliant with his medications due to medication issue Pt noted to be tachycardiac Pt is diaphoretic tongue fasciculations and tremulousness EKG: Afib rate of 125 bpm, Right axis, intervals abnormal - QRS:110ms, QTc:508ms, t waves upright, no st elevation or depressions 09/24/19 14:52 Laboratory Tests 09/24/19 13:10 WBC 4.1 Hgb 12.4 Hct 36.6 D Plt Count 75 L D 09/24/19 14:53 Laboratory Tests 09/24/19 09/24/19 13:10 13:10 BUN 11.8 Creatinine 0.6 Total Bilirubin 2.3 H AST 210 H ALT 164 H Creatine Kinase 214 Troponin I 0.02 B-Natriuretic Peptide 2709.5 H Pt with Afib with RVR WELL as Alcohol withdrawal Will give lopressor IV and po Will give Valium IV Will admit to hospitalist service EXAM#: TYPE/EXAM: RESULT: [id number] RAD/CHEST X-RAY PORTABLE* Palpitations. Impression. Cardiomegaly. No evidence of active pulmonary disease. Reported By: Chapo Verdin MD 09/24/19 14:10
--- NOTE | 2019-09-24 14:55 | EKG ---
Test Reason : Blood Pressure : / mmHG Vent. Rate : 125 BPM Atrial Rate : 170 BPM P-R Int : 000 ms QRS Dur : 110 ms QT Int : 352 ms P-R-T Axes : 000 076 044 degrees QTc Int : 508 ms ATRIAL FIBRILLATION WITH RAPID VENTRICULAR RESPONSE INDETERMINATE AXIS INCOMPLETE RIGHT BUNDLE BRANCH BLOCK ABNORMAL ECG WHEN COMPARED WITH ECG OF 24-SEP-2019 02:55, NO SIGNIFICANT CHANGE WAS FOUND Confirmed by IRAJ GOODE MD ([id number]) on 09/24/2019 2:55:22 PM Referred By: Confirmed By:IRAJ GOODE MD
--- NOTE | 2019-09-24 16:11 | HP ---
Admitting History and Physical - Admission Chief Complaint: palpiations, and tachycardia, History of Present Illness: HPI: The patient is a 54 year old male, with a significant PMH of alcohol abuse ( currently undergoing detox at [facility] was admitted today), Afib (on Xarelto), GERD, HTN, and seizures (2/2 EtOH), who presents to the ED BIBEMS from [facility] for evaluation of Afib with RVR on ECG. Patient has not been on his usual daily medications for over a month, secondary to not having insurance at this time. He endorses some associated SOB and lightheadedness while in the ED. and palpitions , resolved now, and pt has been through different rehabs for last couple of yrs, and didnt have the PCP bc of insurance issues, and non compliant, no nausea no vomiting, ED management , ekg, shows afib, with rvr , recieved one dose of the lopressor iv 5 mg, then oral , and rte better and found to have high bmp and had diaphoresis, and had withdrawl s/s. Allergies: NKA, NKDA History Source: Patient Limitations to Obtaining History: No Limitations - Past Medical History Cardiovascular: Yes: AFIB Psych: Yes: Addictions (alcohol) - Past Surgical History Past Surgical History: Yes: None - Smoking History Smoking history: Unknown if ever smoked Have you smoked in the past 12 months: No Aproximately how many cigarettes per day: 0 - Alcohol/Substance Use Hx Alcohol Use: Yes (drinks a litre of alcohol everyday,) Number of Drinks Daily: 10 History of Substance Use: reports: None - Social History Usual Living Arrangement: Yes: Alone Do you think of yourself as: Straight/Heterosexual ADL: Independent History of Recent Travel: No Home Medications - Allergies Allergies/Adverse Reactions: Allergies Allergy/AdvReac Type Severity Reaction Status Date / Time No Known Allergies Allergy Verified 09/24/19 13:00 - Home Medications Home Medications: Ambulatory Orders Buspirone HCl [Buspar -] 10 mg PO DAILY #30 tablet 08/07/17 Escitalopram Oxalate [Lexapro -] 20 mg PO DAILY #30 tablet 08/07/17 Metoprolol Succinate [Toprol XL -] 100 mg PO DAILY #30 tab.sr.24h 08/07/17 Rivaroxaban [Xarelto -] 20 mg PO DAILY@1700 #30 tablet 08/07/17 Family Medical History Other Family History: father alcoholic and throat ca Review of Systems - Review of Systems Eyes: reports: No Symptoms HENT: reports: No Symptoms Neck: reports: No Symptoms Cardiovascular: reports: Palpitations Respiratory: reports: No Symptoms Gastrointestinal: reports: No Symptoms Integumentary: reports: No Symptoms Neurological: reports: No Symptoms Hematology/Lymphatic: reports: No Symptoms Psychiatric: reports: Anxiety Physical Examination Vital Signs: Vital Signs Temperature 97.8 F 09/24/19 12:50 Pulse Rate 112 H 09/24/19 15:03 Respiratory Rate 22 H 09/24/19 15:03 Blood Pressure 131/112 H 09/24/19 15:03 O2 Sat by Pulse Oximetry (%) 100 09/24/19 15:03 Constitutional: Yes: Well Nourished Eyes: Yes: EOM Intact HENT: Yes: Atraumatic, Normocephalic Neck: Yes: Supple, Trachea Midline Cardiovascular: Yes: Tachycardia, Pulse Irregular Respiratory: Yes: WNL Gastrointestinal: Yes: Normal Bowel Sounds, Soft Musculoskeletal: Yes: WNL Extremities: Yes: WNL Edema: Yes Edema: LLE: 1+, RLE: 1+ Peripheral Pulses WNL: Yes Neurological: Yes: WNL Labs: CBC, BMP 09/24/19 13:10 09/24/19 13:10 Imaging - Results EKG: Image Reviewed (AFIB ,at 125 bpm, no acute st t changes,) Problem List - Problems (1) Alcohol dependence with uncomplicated withdrawal Code(s): F10.230 - ALCOHOL DEPENDENCE WITH WITHDRAWAL, UNCOMPLICATED (2) Atrial fibrillation with rapid ventricular response Code(s): I48.91 - UNSPECIFIED ATRIAL FIBRILLATION Assessment/Plan 54 yo male with pmh of the afib and non compliant with meds, bought here from [facility] for the afib with rvr, atrial fibrillaion with rvr, will resume the meds, xarelto and also metoprolol and get the ed echo, cardiology consult, and also aly get the cardiac markers 2 alcohol withdrawl start the librium protocol 3 dvt prophylaxis, on xarelto 4 low platelets h/o alcohol abuse, observe, has been through detox programs, and non compliant dc planning, Visit type - Emergency Visit Emergency Visit: Yes Care time: The patient presented to the Emergency Department on the above date and was hospitalized for further evaluation of their emergent condition. - New Patient This patient is new to me today: Yes Date on this admission: 09/24/19 - Critical Care Critical Care patient: No
[2019-09-24] MEDS ORDERED: ACETAMINOPHEN 325 MG TABLET (FP) PO PRN (16:17)
[2019-09-24] MEDS ORDERED: chlordiazePOXIDE HCL 10 MG CAPSULE PO PRN (16:31)
[2019-09-24] MEDS ORDERED: chlordiazePOXIDE HCL 25 MG CAPSULE ONE ×2 (16:59→21:07)
[2019-09-24] MEDS: chlordiazePOXIDE HCL 25 MG CAPSULE PO SCH ×2 (17:01→21:20)
[2019-09-24] MEDS ORDERED: FOLIC ACID 1 MG TABLET (FP) PO ONE (17:06)
[2019-09-24] MEDS ORDERED: FOLIC ACID 1 MG TABLET (FP) ONE (18:48)
[2019-09-24] MEDS: RIVAROXABAN 20 MG TABLET PO SCH (21:21)
[2019-09-24] MEDS: MELATONIN 5 MG TABLETS PO PRN (22:40)
[2019-09-25] MEDS: chlordiazePOXIDE HCL 25 MG CAPSULE PO SCH (04:44)
[2019-09-25] MEDS ORDERED: MAG HYDROX/AL HYDROX/SIMETH 30 ML UNIT-DOSE CUP PO ONE (05:17)
[2019-09-25] MEDS: LISINOPRIL 5 MG TABLET (FP) PO SCH (10:15)
[2019-09-25] MEDS: THIAMINE HCL 100 MG TABLET (FP) PO SCH (10:15)
--- NOTE | 2019-09-25 11:07 | CON.CARD ---
Consult Consult Specialty:: Cardiology. Reason for Consultation:: Rapid Afib - History of Present Illness Chief Complaint: Afib History of Present Illness: 54yo man with a PMH of a-fib (on xarelto and metoprolol), HTN, alcohol abuse who was sent to the ED from detox due to tachycardia. Per Mr Marilee, he has been off of his home medications for the past month due to losing his insurance. He was admitted to detox at [facility] today and had an EKG completed showing HR in the 140's. He reports orthopnea and PND ECG with Afib RVR and incomplete RBBB. No ischemic changes. CXR is clear. Elevated BNP. Echo preliminarly showed markendly reduced LV systolic function hypokinetic RV. - Past Medical History Cardio/Vascular: Yes: AFIB Psych: Yes: Addictions (alcohol) - Past Surgical History Past Surgical History: Yes: None - Alcohol/Substance Use Hx Alcohol Use: No Number of Drinks Daily: 10 History of Substance Use: reports: None - Smoking History Smoking history: Unknown if ever smoked Have you smoked in the past 12 months: No Aproximately how many cigarettes per day: 0 - Social History ADL: Independent History of Recent Travel: No Home Medications - Allergies Allergies/Adverse Reactions: Allergies Allergy/AdvReac Type Severity Reaction Status Date / Time No Known Allergies Allergy Verified 09/24/19 13:00 - Home Medications Home Medications: Ambulatory Orders Buspirone HCl [Buspar -] 10 mg PO DAILY #30 tablet 08/07/17 Escitalopram Oxalate [Lexapro -] 20 mg PO DAILY #30 tablet 08/07/17 Metoprolol Succinate [Toprol XL -] 100 mg PO DAILY #30 tab.sr.24h 08/07/17 Rivaroxaban [Xarelto -] 20 mg PO DAILY@1700 #30 tablet 08/07/17 Review of Systems - Review of Systems Constitutional: reports: No Symptoms Eyes: reports: No Symptoms HENT: reports: No Symptoms Neck: reports: No Symptoms Cardiovascular: reports: Edema, Palpitations, Shortness of Breath Respiratory: reports: Cough, Exercise Intolerance, SOB, SOB on Exertion Gastrointestinal: reports: No Symptoms Endocrine: reports: No Symptoms Vital Signs: Vital Signs Temperature 97.8 F 09/25/19 06:00 Pulse Rate 110 H 09/25/19 06:00 Respiratory Rate 20 09/25/19 06:00 Blood Pressure 115/74 09/25/19 06:00 O2 Sat by Pulse Oximetry (%) 99 09/24/19 22:00 Constitutional: Yes: Well Nourished, No Distress, Calm Eyes: Yes: Conjunctiva Clear, EOM Intact HENT: Yes: Atraumatic, Normocephalic Neck: Yes: Supple, Trachea Midline Respiratory: Yes: Regular, CTA Bilaterally Gastrointestinal: Yes: Normal Bowel Sounds, Soft Cardiovascular: Yes: Tachycardia, Pulse Irregular JVD: No Carotid Bruit: No PMI: Non-Displaced Heart Sounds: Yes: S1, S2 Murmur: No: Systolic Murmur, Diastolic Murmur Edema: Yes Edema: LLE: 1+, RLE: 1+ - Other Data Labs, Other Data: CBC, BMP 09/24/19 13:10 09/24/19 13:10 Troponin, BNP 09/24/19 09/24/19 13:10 13:10 Troponin I 0.02 B-Natriuretic Peptide 2709.5 H Troponin, BNP 09/24/19 09/24/19 13:10 13:10 Troponin I 0.02 B-Natriuretic Peptide 2709.5 H Laboratory Tests 09/24/19 09/25/19 13:10 13:34 B-Natriuretic Peptide 2709.5 H 6523.0 H Laboratory Tests 09/24/19 09/25/19 13:10 13:34 B-Natriuretic Peptide 2709.5 H 6523.0 H TSH 2.79 Afib with RVR. Imaging - Results Chest X-ray: Report Reviewed Problem List - Problems (1) Elevated brain natriuretic peptide (BNP) level Code(s): R79.89 - OTHER SPECIFIED ABNORMAL FINDINGS OF BLOOD CHEMISTRY (2) Alcohol dependence with uncomplicated withdrawal Code(s): F10.230 - ALCOHOL DEPENDENCE WITH WITHDRAWAL, UNCOMPLICATED (3) Atrial fibrillation Code(s): I48.91 - UNSPECIFIED ATRIAL FIBRILLATION Qualifiers: Atrial fibrillation type: unspecified Qualified Code(s): I48.91 - Unspecified atrial fibrillation Assessment/Plan 54yo man alcoholic with ho of chronic a-fib (on xarelto and metoprolol). Presented for detox. Did not take his medications for at least a month. Noted to be in rapid Afib. ECG with Afib RVR and incomplete RBBB. No ischemic changes. He is volume overloaded. Elevated BNP. Echo preliminarly showed markendly reduced LV systolic function hypokinetic RV. 1. Rapid Afib.: chronic AF with elevated HR due to medication non-compliance. Just started on Metoprolol XL 100 mg . Will continue to monitor on tele Continue Xarelto AC Continue detox. 2. Severe LV dysfunction with Heart failure/elevated BNP. 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 Pt well perfused and warm. DC ACEI until heart failure has improved. Add Lasix 40mg IV Daily.
--- NOTE | 2019-09-25 12:56 | PN ---
Physical Exam: SUBJECTIVE: Patient seen and examined. Feels shaky, diaphoretic and having headaches. Feels like he is still withdrawing. denies any hallucinations. OBJECTIVE: Rosalino is a 54 year old male, with a significant past medical history of alcohol abuse who presents from [facility] (from detox) when he was found to have atrial fibrillation with RVR in ekg. Patient has not been on his usual daily cardiac medications for over a month, secondary to not having insurance. Patient admitted for afib with rvr, elevated bnp and acute etoh withdrawal with elevated LFTs. Vital Signs Period Temp Pulse Resp BP Sys/Ambriz Pulse Ox Last 24 Hr 97.7 F-98.2 F 90-122 16-22 100-163/74-112 96-100 GENERAL: The patient is awake, alert, and fully oriented. HEAD: Normal with no signs of trauma. EYES: PERRL, extraocular movements intact, sclera anicteric, conjunctiva clear. No ptosis. ENT: Ears normal, nares patent, oropharynx clear without exudates, moist mucous membranes. NECK: Trachea midline, full range of motion, supple. LUNGS: Breath sounds equal, clear to auscultation bilaterally, no wheezes HEART: irregular heart rate ABDOMEN: Soft, nontender, nondistended, normoactive bowel sounds EXTREMITIES: no edema. NEUROLOGICAL: Normal speech, gait not observed. PSYCH: Normal mood, normal affect. SKIN: Warm, dry, normal turgor, no rashes or lesions noted Laboratory Results - last 24 hr 09/24/19 09/24/19 09/24/19 13:10 13:10 13:10 WBC 4.1 RBC 3.66 L Hgb 12.4 Hct 36.6 D MCV 100.0 H MCH 33.8 H MCHC 33.8 RDW 16.9 H Plt Count 75 L D MPV 7.7 D Absolute Neuts (auto) 3.1 Neutrophils % 74.6 D Lymphocytes % 10.2 D Monocytes % 13.6 H Eosinophils % 0.8 Basophils % 0.8 Nucleated RBC % 0 Sodium 137 Potassium 3.9 Chloride 105 Carbon Dioxide 22 Anion Gap 10 BUN 11.8 Creatinine 0.6 Est GFR (CKD-EPI)AfAm 130.27 Est GFR (CKD-EPI)NonAf 112.40 Random Glucose 114 H Calcium 8.4 L Total Bilirubin 2.3 H AST 210 H ALT 164 H Alkaline Phosphatase 135 H Creatine Kinase 214 Creatine Kinase Index 2.5 CK-MB (CK-2) 5.4 H Troponin I 0.02 B-Natriuretic Peptide 2709.5 H Total Protein 6.9 Albumin 3.6 Active Medications Generic Name Dose Route Start Last Admin Trade Name Freq PRN Reason Stop Dose Admin Acetaminophen 650 mg 09/24/19 16:17 Tylenol - PO Q4H PRN PAIN LEVEL 4 - 6 Lisinopril 5 mg 09/25/19 10:00 09/25/19 10:15 Prinivil PO 5 mg DAILY JASMIN Administration Lorazepam 2 mg 09/25/19 11:00 Ativan PO 09/26/19 23:01 0500,1100,1700,2300 JASMIN Lorazepam 0.5 mg 09/28/19 05:00 Ativan - PO 09/28/19 23:01 Q6H JASMIN Lorazepam 0.5 mg 09/28/19 00:00 Ativan - PO 09/29/19 00:00 Q4H PRN Symptoms of Withdrawal Lorazepam 0.5 mg 09/29/19 05:00 Ativan - PO 09/29/19 05:01 ONCE ONE Lorazepam 1 mg 09/27/19 05:00 Ativan - PO 09/27/19 23:01 0500,1100,1700,2300 JASMIN Lorazepam 1 mg 09/25/19 12:53 Ativan - PO 09/27/19 23:59 Q4H PRN Symptoms of Withdrawal Melatonin 5 mg 09/24/19 22:05 09/24/19 22:40 Melatonin PO 5 mg HS PRN Administration INSOMNIA Metoprolol Succinate 100 mg 09/25/19 10:00 09/25/19 10:15 Toprol Xl - PO 100 mg DAILY JASMIN Administration Rivaroxaban 20 mg 09/24/19 18:00 09/24/19 21:21 Xarelto PO 20 mg DAILY@1800 JASMIN Administration Thiamine HCl 100 mg 09/25/19 10:00 09/25/19 10:15 Vitamin B1 - PO 100 mg DAILY JASMIN Administration ASSESSMENT/PLAN: Problem List - Problems (1) Alcohol withdrawal Assessment/Plan: transferred from [facility] d/[facility] and start ativan taper Code(s): F10.239 - ALCOHOL DEPENDENCE WITH WITHDRAWAL, UNSPECIFIED (2) Elevated brain natriuretic peptide (BNP) level Assessment/Plan: on lasix iv Code(s): R79.89 - OTHER SPECIFIED ABNORMAL FINDINGS OF BLOOD CHEMISTRY (3) Atrial fibrillation with rapid ventricular response Assessment/Plan: monitor on tele on toprol and xarelto Code(s): I48.91 - UNSPECIFIED ATRIAL FIBRILLATION (4) Alcohol-induced anxiety disorder Assessment/Plan: changed librium to ativan taper as patient has elevated liver enzymes Code(s): F10.980 - ALCOHOL USE, UNSP WITH ALCOHOL-INDUCED ANXIETY DISORDER (5) Atrial fibrillation Assessment/Plan: rate control with toprol, on xarelto Code(s): I48.91 - UNSPECIFIED ATRIAL FIBRILLATION Qualifiers: Atrial fibrillation type: unspecified Qualified Code(s): I48.91 - Unspecified atrial fibrillation (6) Thrombocytopenia Assessment/Plan: monitor with daily labs monitor in the abstinence of alcohol Code(s): D69.6 - THROMBOCYTOPENIA, UNSPECIFIED (7) Left ventricular dysfunction Assessment/Plan: Severe LV dysfunction with Heart failure and elevated BNP. 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 - New Patient This patient is new to me today: Yes Date on this admission: 09/27/19 - Critical Care Critical Care patient: No - Discharge Referral Referred to [facility] No
[2019-09-25] MEDS ORDERED: LORazepam 1 MG TABLET PO ONE (13:00)
[2019-09-25 13:50] LABS: BASO % 1.2 % (0-2.0); EOS % 1.8 % (0-4.5); HEMATOCRIT 43.4 % (35.4-49); HEMOGLOBIN 14.3 GM/dL (11.7-16.9); LYMPH % 19.5 % (8-40); MCH 34.1 pg (25.7-33.7); MEAN CELL VOLUME 103.3 fl (80-96); MEAN PLT VOLUME 9.5 fl (7.5-11.1); MONO % 15.4 % (3.8-10.2); NEUT % 62.1 % (42.8-82.8); PLATELET COUNT 85 K/MM3 (134-434); RDW 17.6 % (11.9-15.9); WHITE BLOOD COUNT 5.6 K/mm3 (4.0-10.0)
[2019-09-25] MEDS: LORazepam 1 MG TABLET PO SCH ×3 (14:30→22:02)
[2019-09-25 14:51] LABS: CHOLESTEROL 158 mg/dL (50-200); HDL CHOLESTEROL 64 mg/dL (40-60); LDL CHOLESTEROL (ONLY SJRH) 82 mg/dL (5-100); MAGNESIUM 1.5 mg/dL (1.8-2.4); TRIGLYCERIDES 121 mg/dL (0-150)
--- NOTE | 2019-09-25 15:13 | EKG ---
Test Reason : Blood Pressure : / mmHG Vent. Rate : 111 BPM Atrial Rate : 105 BPM P-R Int : 000 ms QRS Dur : 122 ms QT Int : 370 ms P-R-T Axes : 000 163 041 degrees QTc Int : 503 ms ATRIAL FIBRILLATION WITH RAPID VENTRICULAR RESPONSE INDETERMINATE AXIS RIGHT BUNDLE BRANCH BLOCK T WAVE ABNORMALITY, CONSIDER LATERAL ISCHEMIA ABNORMAL ECG WHEN COMPARED WITH ECG OF 24-SEP-2019 12:52, NONSPECIFIC T WAVE ABNORMALITY NOW EVIDENT IN INFERIOR LEADS T WAVE INVERSION NOW EVIDENT IN LATERAL LEADS Confirmed by LUIS ARTEAGA MD ([id number]) on 09/25/2019 3:12:42 PM Referred By: Confirmed By:LUIS ARTEAGA MD
--- NOTE | 2019-09-25 16:03 | ECHO ---
Name: CROW HACKETT C Exam:Adult Echocardiogram Study Date: 09/25/2019 11:45 AM Age: 54 yrs Height: 74 in Weight: 250 lb BSA: 2.4 m2 MMode/2D Measurements & Calculations IVSd: 1.2 cm Ao root diam: 2.6 cm LVIDd: 4.7 cm LA dimension: 4.8 cm LVIDs: 4.3 cm LVPWd: 1.4 cm LVPWs: 1.8 cm EDV(Teich): 102.0 ml ESV(Teich): 81.6 ml LVOT diam: 2.0 cm LAV (MOD-bp): 127.0 ml TAPSE: 2.2 cm RV S Ashutosh: 13.9 cm/sec Doppler Measurements & Calculations MV E max ashutosh: 81.0 cm/sec Ao V2 max: 90.5 cm/sec MV A max ashutosh: 42.4 cm/sec Ao max P.3 mmHg MV E/A: 1.9 ELENA(V,D): 2.5 cm2 MV dec time: 0.07 sec LV V1 max P.2 mmHg MR max ashutosh: 390.4 cm/sec LV V1 max: 74.0 cm/sec MR max P.0 mmHg TR max ashutosh: 252.7 cm/sec PA V2 max: 81.1 cm/sec TR max P.7 mmHg PA max P.7 mmHg Med Peak E' Ashutosh: 5.5 cm/sec Med E/e': 14.8 Lat Peak E' Ashutosh: 10.2 cm/sec Lat E/e': 7.9 Procedure A complete two-dimensional transthoracic echocardiogram was performed (2D, M-mode, Doppler and color flow Doppler). Left Ventricle The left ventricle is normal in size. Left ventricular systolic function is severely reduced. Ejectio n Fraction = 15-20%. There is severe global hypokinesis of the left ventricle. Right Ventricle The right ventricle is moderately dilated. The right ventricular systolic function is moderately redu sadia. Atria The left atrium is severely dilated. The right atrium is severely dilated. Mitral Valve There is mild mitral regurgitation. Tricuspid Valve There is mild tricuspid regurgitation. Right ventricular systolic pressure is normal. Aortic Valve No hemodynamically significant valvular aortic stenosis. No aortic regurgitation is present. Pulmonic Valve There is no pulmonic valvular regurgitation. Great Vessels The aortic root is normal size. Pericardium/Pleura There is no pericardial effusion. Interpretation Summary Left ventricular systolic function is severely reduced. There is severe global hypokinesis of the left ventricle. The right ventricle is moderately dilated. The right ventricular systolic function is moderately reduced. The left atrium is severely dilated. The right atrium is severely dilated. There is mild mitral regurgitation. There is mild tricuspid regurgitation. MD Jonnie Jovel 09/25/2019 04:02 PM
[2019-09-25] MEDS: FUROSEMIDE 40 MG/4 ML INJECTABLE VIAL IVPUSH SCH (17:07)
[2019-09-25] MEDS: RIVAROXABAN 20 MG TABLET PO SCH (17:09)
[2019-09-25] MEDS: MELATONIN 5 MG TABLETS PO PRN (22:02)
[2019-09-26] MEDS ORDERED: chlordiazePOXIDE 5 MG CAPSULE PO SCH (05:00)
[2019-09-26] MEDS: LORazepam 1 MG TABLET PO SCH ×4 (05:30→23:06)
[2019-09-26 07:13] LABS: BASO % 1.2 % (0-2.0); EOS % 1.4 % (0-4.5); HEMATOCRIT 39.6 % (35.4-49); HEMOGLOBIN 13.4 GM/dL (11.7-16.9); LYMPH % 20.5 % (8-40); MCH 34.1 pg (25.7-33.7); MCHC 33.8 g/dl (32.0-35.9); MEAN PLT VOLUME 9.3 fl (7.5-11.1); MONO % 16.5 % (3.8-10.2); NEUT % 60.4 % (42.8-82.8); PLATELET COUNT 94 K/MM3 (134-434); RBC 3.92 M/mm3 (4.00-5.60); RDW 17.2 % (11.9-15.9)
[2019-09-26 07:39] LABS: ALBUMIN 3.1 g/dl (3.4-5.0); BLOOD UREA NITROGEN 23.9 mg/dL (7-18); CALCIUM 8.4 mg/dL (8.5-10.1); CREATININE 1.1 mg/dL (0.55-1.3); MAGNESIUM 1.6 mg/dL (1.8-2.4); POTASSIUM 4.1 mmol/L (3.5-5.1); TOT PROT 6.5 g/dl (6.4-8.2)
[2019-09-26] MEDS: THIAMINE HCL 100 MG TABLET (FP) PO SCH (09:06)
[2019-09-26] MEDS: FOLIC ACID 1 MG TABLET (FP) PO SCH (09:06)
[2019-09-26] MEDS: FUROSEMIDE 40 MG/4 ML INJECTABLE VIAL IVPUSH SCH (09:06)
[2019-09-26] MEDS: LISINOPRIL 5 MG TABLET (FP) PO SCH (09:07)
--- NOTE | 2019-09-26 14:17 | PN ---
Progress Note, Physician Chief Complaint: Telem Rapid AF. HR 110 Feeling anxious and with orthopnea. ESCALONA History of Present Illness: 54yo man with a PMH of a-fib (on xarelto and metoprolol), HTN, alcohol abuse who was sent to the ED from detox due to tachycardia. Per Mr Marilee, he has been off of his home medications for the past month due to losing his insurance. He was admitted to detox at [facility] today and had an EKG completed showing HR in the 140's. He reports orthopnea and PND ECG with Afib RVR and incomplete RBBB. No ischemic changes. Echo 09/25/19 EF 15-20% with normal LV size mild MR moderate RV hypokinesis. Being treated for acute HFrEF. - Current Medication List Current Medications: Active Medications Acetaminophen (Tylenol -) 650 mg PO Q4H PRN PRN Reason: PAIN LEVEL 4 - 6 Folic Acid (Folic Acid -) 1 mg PO DAILY [facility] Last Admin: 09/26/19 09:06 Dose: 1 mg Furosemide (Lasix Injection -) 40 mg IVPUSH DAILY [facility] Last Admin: 09/26/19 09:06 Dose: 40 mg Lisinopril (Prinivil) 5 mg PO DAILY [facility] Last Admin: 09/26/19 09:07 Dose: 5 mg Lorazepam (Ativan -) 2 mg PO 0500,1100,1700,2300 [facility] Stop: 09/26/19 23:01 Last Admin: 09/26/19 11:09 Dose: 2 mg Lorazepam (Ativan -) 0.5 mg PO Q6H [facility] Stop: 09/28/19 23:01 Lorazepam (Ativan -) 0.5 mg PO Q4H PRN PRN Reason: Symptoms of Withdrawal Stop: 09/29/19 00:00 Lorazepam (Ativan -) 0.5 mg PO ONCE ONE Stop: 09/29/19 05:01 Lorazepam (Ativan -) 1 mg PO 0500,1100,1700,2300 [facility] Stop: 09/27/19 23:01 Lorazepam (Ativan -) 1 mg PO Q4H PRN PRN Reason: Symptoms of Withdrawal Stop: 09/27/19 23:59 Melatonin (Melatonin) 5 mg PO HS PRN PRN Reason: INSOMNIA Last Admin: 09/25/19 22:02 Dose: 5 mg Metoprolol Succinate (Toprol Xl -) 100 mg PO DAILY [facility] Last Admin: 09/26/19 09:07 Dose: 100 mg Rivaroxaban (Xarelto) 20 mg PO DAILY@1800 [facility] Last Admin: 09/25/19 17:09 Dose: 20 mg Thiamine HCl (Vitamin B1 -) 100 mg PO DAILY [facility] Last Admin: 09/26/19 09:06 Dose: 100 mg - Objective Vital Signs: Vital Signs Temperature 98.4 F 09/26/19 13:50 Pulse Rate 110 H 09/26/19 13:50 Respiratory Rate 18 09/26/19 13:50 Blood Pressure 97/63 09/26/19 13:50 O2 Sat by Pulse Oximetry (%) 97 09/26/19 10:00 Constitutional: Yes: Well Nourished, Mild Distress Eyes: Yes: Conjunctiva Clear, EOM Intact HENT: Yes: Atraumatic, Normocephalic Neck: Yes: Supple, Trachea Midline Cardiovascular: Yes: Tachycardia, Pulse Irregular, JVD, S1, S2 Respiratory: Yes: Regular, CTA Bilaterally Gastrointestinal: Yes: Normal Bowel Sounds, Soft Edema: Yes Edema: LLE: 1+, RLE: 1+ Labs: CBC, BMP 09/26/19 06:50 09/26/19 06:50 Problem List - Problems (1) Elevated brain natriuretic peptide (BNP) level Code(s): R79.89 - OTHER SPECIFIED ABNORMAL FINDINGS OF BLOOD CHEMISTRY (2) Alcohol dependence with uncomplicated withdrawal Code(s): F10.230 - ALCOHOL DEPENDENCE WITH WITHDRAWAL, UNCOMPLICATED (3) Atrial fibrillation Code(s): I48.91 - UNSPECIFIED ATRIAL FIBRILLATION Qualifiers: Atrial fibrillation type: unspecified Qualified Code(s): I48.91 - Unspecified atrial fibrillation Assessment/Plan 54yo man alcoholic with ho of chronic a-fib (on xarelto and metoprolol). Presented for detox. Did not take his medications for at least a month. Noted to be in rapid Afib and new onset systolic heart failure ECG with Afib RVR and incomplete RBBB. No ischemic changes. He is significantly volume overloaded. 1. Rapid Afib.: chronic AF with elevated HR due to medication non-compliance. Increase Metoprolol XL 150mg QD. Continue Xarelto AC Continue detox. 2. 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 Pt well perfused and warm. Pt has siginificant volume overload. DC ACEI until heart failure has improved. Please monitoro I/O and weight patient daily. Increase lasix 40mg IV bid.
[2019-09-26] MEDS ORDERED: FUROSEMIDE 40 MG/4 ML INJECTABLE VIAL IVPUSH ONE (16:07)
--- NOTE | 2019-09-26 16:09 | PN ---
Physical Exam: SUBJECTIVE: Patient seen and examined. denies abdominal pain, nausea or vomiting. OBJECTIVE: Rosalino is a 54 year old male, with a significant past medical history of alcohol abuse who presents from [facility] (from detox) when he was found to have atrial fibrillation with RVR in ekg. Patient has not been on his usual daily cardiac medications for over a month, secondary to not having insurance. Patient admitted for afib with rvr, elevated bnp and acute etoh withdrawal with elevated LFTs. Vital Signs Period Temp Pulse Resp BP Sys/Ambriz Pulse Ox Last 24 Hr 98 F-99.0 F 89-110 18-22 94-128/54-78 97-97 GENERAL: The patient is awake, alert, and fully oriented. HEAD: Normal with no signs of trauma. EYES: PERRL, extraocular movements intact, sclera anicteric, conjunctiva clear. No ptosis. ENT: Ears normal, nares patent, oropharynx clear without exudates, moist mucous membranes. NECK: Trachea midline, full range of motion, supple. LUNGS: Breath sounds equal, clear to auscultation bilaterally, no wheezes HEART: irregular heart rate ABDOMEN: Soft, nontender, nondistended, normoactive bowel sounds EXTREMITIES: no edema. NEUROLOGICAL: Normal speech, gait not observed. PSYCH: Normal mood, normal affect. SKIN: Warm, dry, normal turgor, no rashes or lesions noted Laboratory Results - last 24 hr 09/26/19 09/26/19 06:50 06:50 WBC 6.0 RBC 3.92 L Hgb 13.4 Hct 39.6 MCV 101.0 H MCH 34.1 H MCHC 33.8 RDW 17.2 H Plt Count 94 L MPV 9.3 Absolute Neuts (auto) 3.6 Neutrophils % 60.4 Lymphocytes % 20.5 Monocytes % 16.5 H Eosinophils % 1.4 Basophils % 1.2 Nucleated RBC % 1 H Sodium 135 L Potassium 4.1 Chloride 100 Carbon Dioxide 24 Anion Gap 10 BUN 23.9 H Creatinine 1.1 Est GFR (CKD-EPI)AfAm 86.52 Est GFR (CKD-EPI)NonAf 74.65 Random Glucose 99 Calcium 8.4 L Magnesium 1.6 L Total Bilirubin 3.0 H AST 537 H ALT 284 H Alkaline Phosphatase 173 H Total Protein 6.5 Albumin 3.1 L Active Medications Generic Name Dose Route Start Last Admin Trade Name Lucianq PRN Reason Stop Dose Admin Acetaminophen 650 mg 09/24/19 16:17 Tylenol - PO Q4H PRN PAIN LEVEL 4 - 6 Folic Acid 1 mg 09/26/19 10:00 09/26/19 09:06 Folic Acid - PO 1 mg DAILY JASMIN Administration Furosemide 40 mg 09/27/19 06:00 Lasix Injection - IVPUSH BID@0600,1400 [facility] Lisinopril 5 mg 09/25/19 10:00 09/26/19 09:07 Prinivil PO 5 mg DAILY JASMIN Administration Lorazepam 2 mg 09/25/19 11:00 09/26/19 11:09 Ativan - PO 09/26/19 23:01 2 mg 0500,1100,1700,2300 JASMIN Administration Lorazepam 0.5 mg 09/28/19 05:00 Ativan - PO 09/28/19 23:01 Q6H JASMIN Lorazepam 0.5 mg 09/28/19 00:00 Ativan - PO 09/29/19 00:00 Q4H PRN Symptoms of Withdrawal Lorazepam 0.5 mg 09/29/19 05:00 Ativan - PO 09/29/19 05:01 ONCE ONE Lorazepam 1 mg 09/27/19 05:00 Ativan - PO 09/27/19 23:01 0500,1100,1700,2300 JASMIN Lorazepam 1 mg 09/25/19 12:53 Ativan - PO 09/27/19 23:59 Q4H PRN Symptoms of Withdrawal Melatonin 5 mg 09/24/19 22:05 09/25/19 22:02 Melatonin PO 5 mg HS PRN Administration INSOMNIA Metoprolol Succinate 100 mg 09/25/19 10:00 09/26/19 09:07 Toprol Xl - PO 100 mg DAILY JASMIN Administration Rivaroxaban 20 mg 09/24/19 18:00 09/25/19 17:09 Xarelto PO 20 mg DAILY@1800 [facility] Administration Thiamine HCl 100 mg 09/25/19 10:00 09/26/19 09:06 Vitamin B1 - PO 100 mg DAILY JASMIN Administration ASSESSMENT/PLAN: Problem List - Problems (1) Alcohol withdrawal Assessment/Plan: transferred from [facility] and start ativan taper on 09/26/2019 see [facility] Code(s): F10.239 - ALCOHOL DEPENDENCE WITH WITHDRAWAL, UNSPECIFIED (2) Elevated brain natriuretic peptide (BNP) level Assessment/Plan: on lasix iv Code(s): R79.89 - OTHER SPECIFIED ABNORMAL FINDINGS OF BLOOD CHEMISTRY (3) Atrial fibrillation with rapid ventricular response Assessment/Plan: monitor on tele on toprol and xarelto toprol increased to toprol 150mg per cardiology recommendations. Code(s): I48.91 - UNSPECIFIED ATRIAL FIBRILLATION (4) Alcohol-induced anxiety disorder Assessment/Plan: changed librium to ativan taper as patient has elevated liver enzymes Code(s): F10.980 - ALCOHOL USE, UNSP WITH ALCOHOL-INDUCED ANXIETY DISORDER (5) Atrial fibrillation Assessment/Plan: rate control with toprol, on xarelto Code(s): I48.91 - UNSPECIFIED ATRIAL FIBRILLATION Qualifiers: Atrial fibrillation type: unspecified Qualified Code(s): I48.91 - Unspecified atrial fibrillation (6) Thrombocytopenia Assessment/Plan: monitor with daily labs monitor in the abstinence of alcohol Code(s): D69.6 - THROMBOCYTOPENIA, UNSPECIFIED (7) Elevated LFTs Assessment/Plan: stop libirum and start on ativan taper instead abdominal ultrasound ordered patient denies any abdominal pain Code(s): R94.5 - ABNORMAL RESULTS OF LIVER FUNCTION STUDIES (8) Left ventricular dysfunction Assessment/Plan: Severe LV dysfunction with Heart failure and elevated BNP. 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 - New Patient This patient is new to me today: No - Critical Care Critical Care patient: No - Discharge Referral Referred to [facility] Med P.C.: No CIWA Score Nausea/Vomitin-No Nausea/No Vomiting Muscle Tremors: 4-Moderate,w/Arms Extend Anxiety: 4-Mod. Anxious/Guarded Agitation: 0-Normal Activity Paroxysmal Sweats: 1-Minimal Palms Moist Orientation: 1-Uncertain about Date Tacttile Disturbances: 0-None Auditory Disturbances: 0-None Visual Disturbances: 0-None Headache: 2-Mild CIWA-Ar Total Score: 12 - Admission Criteria OASAS Guidelines: Admission for Medically Managed Detox: Requires at least one of the followin. CIWA greater than 12 2. Seizures within the past 24 hours 3. Delirium tremens within the past 24 hours 4. Hallucinations within the past 24 hours 5. Acute intervention needed for co occurring medical disorder 6. Acute intervention needed for co occurring psychiatric disorder 7. Severe withdrawal that cannot be handled at a lower level of care (continued vomiting, continued diarrhea, abnormal vital signs) requiring intravenous medication and/or fluids 8.
[2019-09-26] MEDS: RIVAROXABAN 20 MG TABLET PO SCH (17:16)
[2019-09-26] MEDS: MELATONIN 5 MG TABLETS PO PRN (23:07)
[2019-09-27] MEDS ORDERED: chlordiazePOXIDE HCL 10 MG CAPSULE PO PRN
[2019-09-27] MEDS: LORazepam 1 MG TABLET PO PRN ×2 (03:13→14:37)
[2019-09-27] MEDS ORDERED: chlordiazePOXIDE HCL 10 MG CAPSULE PO SCH (05:00)
[2019-09-27] MEDS: LORazepam 1 MG TABLET PO SCH ×4 (06:50→22:52)
[2019-09-27] MEDS: FUROSEMIDE 40 MG/4 ML INJECTABLE VIAL IVPUSH SCH ×2 (06:55→14:37)
[2019-09-27 07:57] LABS: BASO % 1.1 % (0-2.0); EOS % 1.1 % (0-4.5); HEMATOCRIT 39.7 % (35.4-49); HEMOGLOBIN 13.3 GM/dL (11.7-16.9); LYMPH % 20.9 % (8-40); MCH 34.5 pg (25.7-33.7); MCHC 33.6 g/dl (32.0-35.9); MEAN CELL VOLUME 102.4 fl (80-96); MEAN PLT VOLUME 9.1 fl (7.5-11.1); MONO % 15.3 % (3.8-10.2); NEUT % 61.6 % (42.8-82.8); PLATELET COUNT 71 K/MM3 (134-434); RBC 3.87 M/mm3 (4.00-5.60); RDW 17.4 % (11.9-15.9); WHITE BLOOD COUNT 5.4 K/mm3 (4.0-10.0)
[2019-09-27 09:10] LABS: ALBUMIN 3.1 g/dl (3.4-5.0); BLOOD UREA NITROGEN 34.7 mg/dL (7-18); CALCIUM 8.5 mg/dL (8.5-10.1); CREATININE 1.3 mg/dL (0.55-1.3); MAGNESIUM 1.4 mg/dL (1.8-2.4); POTASSIUM 3.8 mmol/L (3.5-5.1); TOT PROT 6.3 g/dl (6.4-8.2)
[2019-09-27] MEDS: THIAMINE HCL 100 MG TABLET (FP) PO SCH (10:11)
[2019-09-27] MEDS: FOLIC ACID 1 MG TABLET (FP) PO SCH (10:12)
[2019-09-27] MEDS ORDERED: MAGNESIUM OXIDE 400 MG TABLET (FP) PO ONE (12:28)
--- NOTE | 2019-09-27 14:29 | CON.GI ---
Consult Consult Specialty:: Gastroenterology ( covering the [facility] service) Referred by:: Norman Irving NP Reason for Consultation:: Abnormal LFTs - History of Present Illness Chief Complaint: Found to be in [facility] upon arrival to [facility] unit History of Present Illness: 54M is transferred from the [facility] detox unit when he was found to be in [facility] at 140bpm. He stopped taking all of his medications about a month ago citing financial problems. He has continued to drink a liter of vodka daily plus beer. He has attempted detox on multiple previous occasions. He denies ever being told of liver abnormalities or of alcoholic hepatitis or cirrhosis. He denies any h/o GI bleeding. He had a colonoscopy at [facility] remotely which was normal. He denies a h/o hepatic encephalopathy or ascites. He has a recent fall onto his knees while drunk. He lives in [place]. - History Source History Provided By: Patient Limitations to Obtaining History: No Limitations - Past Medical History Cardio/Vascular: Yes: AFIB, CHF (ech revealed severely reduced LV and moderately reduced RV function c/w cardiomyopathy) Hepatobiliary: Yes: Other (denies liver disease bit has elevated trasmaminases on previous detox dating back to 2016) Psych: Yes: Addictions (alcohol) - Past Surgical History Past Surgical History: Yes: None, Colonoscopy - Alcohol/Substance Use Hx Alcohol Use: Yes (liter of vodka daily plus beer) Number of Drinks Daily: 10 History of Substance Use: reports: Cocaine (snorted cocaine in the past, denies IVDA) - Smoking History Smoking history: Never smoked Have you smoked in the past 12 months: No Aproximately how many cigarettes per day: 0 - Social History Usual Living Arrangement: With Spouse ADL: Independent 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[employer], 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, 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 Place of : [facility] History of Recent Travel: No Home Medications - Allergies Allergies/Adverse Reactions: Allergies Allergy/AdvReac Type Severity Reaction Status Date / Time No Known Allergies Allergy Verified 09/24/19 13:00 - Home Medications Home Medications: Ambulatory Orders Buspirone HCl [Buspar -] 10 mg PO DAILY #30 tablet 08/07/17 Escitalopram Oxalate [Lexapro -] 20 mg PO DAILY #30 tablet 08/07/17 Metoprolol Succinate [Toprol XL -] 100 mg PO DAILY #30 tab.sr.24h 08/07/17 Rivaroxaban [Xarelto -] 20 mg PO DAILY@1700 #30 tablet 08/07/17 Family Medical History Family Hx Cancer: Father (cancer of the larynx but lived to 83) Other Family History: mother of renal hemorrhage related to a procedure 73 Review of Systems - Review of Systems Constitutional: reports: Malaise Eyes: reports: No Symptoms HENT: reports: No Symptoms Neck: reports: No Symptoms Cardiovascular: reports: Palpitations, Shortness of Breath Respiratory: reports: Exercise Intolerance Gastrointestinal: reports: No Symptoms Genitourinary: reports: No Symptoms Integumentary: reports: No Symptoms Neurological: reports: No Symptoms Physical Exam-GI Vital Signs: Vital Signs Temperature 97.9 F 09/27/19 13:00 Pulse Rate 116 H 09/27/19 13:00 Respiratory Rate 22 H 09/27/19 13:00 Blood Pressure 122/71 09/27/19 13:00 O2 Sat by Pulse Oximetry (%) 98 09/27/19 08:46 CBC,CMP WBC 5.4 K/mm3 (4.0-10.0) 09/27/19 07:10 RBC 3.87 M/mm3 (4.00-5.60) L 09/27/19 07:10 Hgb 13.3 GM/dL (11.7-16.9) 09/27/19 07:10 Hct 39.7 % (35.4-49) 09/27/19 07:10 MCV 102.4 fl (80-96) H 09/27/19 07:10 MCH 34.5 pg (25.7-33.7) H 09/27/19 07:10 MCHC 33.6 g/dl (32.0-35.9) 09/27/19 07:10 RDW 17.4 % (11.9-15.9) H 09/27/19 07:10 Plt Count 71 K/MM3 (134-434) L D 09/27/19 07:10 MPV 9.1 fl (7.5-11.1) 09/27/19 07:10 Absolute Neuts (auto) 3.3 K/mm3 (1.5-8.0) 09/27/19 07:10 Neutrophils % 61.6 % (42.8-82.8) 09/27/19 07:10 Lymphocytes % 20.9 % (8-40) 09/27/19 07:10 Monocytes % 15.3 % (3.8-10.2) H 09/27/19 07:10 Eosinophils % 1.1 % (0-4.5) 09/27/19 07:10 Basophils % 1.1 % (0-2.0) 09/27/19 07:10 Nucleated RBC % 0 % (0-0) 09/27/19 07:10 Sodium 132 mmol/L (136-145) L 09/27/19 07:10 Potassium 3.8 mmol/L (3.5-5.1) 09/27/19 07:10 Chloride 97 mmol/L (98-107) L 09/27/19 07:10 Carbon Dioxide 23 mmol/L (21-32) 09/27/19 07:10 Anion Gap 12 MMOL/L (8-16) 09/27/19 07:10 BUN 34.7 mg/dL (7-18) H 09/27/19 07:10 Creatinine 1.3 mg/dL (0.55-1.3) 09/27/19 07:10 Est GFR (CKD-EPI)AfAm 70.69 09/27/19 07:10 Est GFR (CKD-EPI)NonAf 60.99 09/27/19 07:10 Random Glucose 82 mg/dL (74-106) 09/27/19 07:10 Hemoglobin A1c % 4.7 % (4.2-6.3) 09/25/19 13:34 Calcium 8.5 mg/dL (8.5-10.1) 09/27/19 07:10 Phosphorus 3.0 mg/dL (2.5-4.9) 09/25/19 13:34 Magnesium 1.4 mg/dL (1.8-2.4) L 09/27/19 07:10 Total Bilirubin 4.0 mg/dL (0.2-1) H 09/27/19 07:10 AST 1228 U/L (15-37) H 09/27/19 07:10 ALT 568 U/L (13-61) H 09/27/19 07:10 Alkaline Phosphatase 157 U/L (45-117) H 09/27/19 07:10 Creatine Kinase 129 U/L (26-308) 09/25/19 13:34 Creatine Kinase Index 2.5 % (0.0-5.0) 09/24/19 13:10 CK-MB (CK-2) 5.4 ng/mL (0.5-3.6) H 09/24/19 13:10 Troponin I < 0.02 ng/ml (0.00-0.05) 09/25/19 13:34 B-Natriuretic Peptide 6523.0 pg/ml (5-125) H 09/25/19 13:34 Total Protein 6.3 g/dl (6.4-8.2) L 09/27/19 07:10 Albumin 3.1 g/dl (3.4-5.0) L 09/27/19 07:10 Triglycerides 121 mg/dL (0-150) 09/25/19 13:34 Cholesterol 158 mg/dL (50-200) 09/25/19 13:34 Total LDL Cholesterol 82 mg/dL (5-100) 09/25/19 13:34 HDL Cholesterol 64 mg/dL (40-60) H 09/25/19 13:34 TSH 2.79 uIU/ml (0.358-3.74) 09/25/19 13:34 Current Medications Generic Name Dose Route Start Last Admin Trade Name Freq PRN Reason Stop Dose Admin Folic Acid 1 mg 09/26/19 10:00 09/27/19 10:12 Folic Acid - PO 1 mg DAILY JASMIN Administration Furosemide 40 mg 09/27/19 06:00 09/27/19 14:37 Lasix Injection - IVPUSH 40 mg BID@0600,1400 JASMIN Administration Lorazepam 0.5 mg 09/28/19 05:00 Ativan - PO 09/28/19 23:01 Q6H JASMIN Lorazepam 0.5 mg 09/28/19 00:00 Ativan - PO 09/29/19 00:00 Q4H PRN Symptoms of Withdrawal Lorazepam 0.5 mg 09/29/19 05:00 Ativan - PO 09/29/19 05:01 ONCE ONE Lorazepam 1 mg 09/27/19 05:00 09/27/19 10:13 Ativan - PO 09/27/19 23:01 1 mg 0500,1100,1700,2300 JASMIN Administration Lorazepam 1 mg 09/25/19 12:53 09/27/19 14:37 Ativan - PO 09/27/19 23:59 1 mg Q4H PRN Administration Symptoms of Withdrawal Melatonin 5 mg 09/24/19 22:05 09/26/19 23:07 Melatonin PO 5 mg HS PRN Administration INSOMNIA Metoprolol Succinate 150 mg 09/27/19 10:00 09/27/19 10:12 Toprol Xl - PO 150 mg DAILY JASMIN Administration Rivaroxaban 20 mg 09/24/19 18:00 09/26/19 17:16 Xarelto PO 20 mg DAILY@1800 JASMIN Administration Thiamine HCl 100 mg 09/25/19 10:00 09/27/19 10:11 Vitamin B1 - PO 100 mg DAILY JASMIN Administration Constitutional: Yes: Other (lethargic but arousable) Eyes: Yes: Sclera Icterus HENT: Yes: Normocephalic Neck: Yes: Trachea Midline Cardiovascular: Yes: Pulse Irregular, Murmur (2/6 ANDREA - holosystolic at apex) Respiratory: Yes: CTA Bilaterally Gastrointestinal Inspection: Yes: Distention (obese) ...Auscultate: Yes: Normoactive Bowel Sounds ...Palpate: Yes: Soft, Other (nontender) ...Rectal Exam: Yes: Guaiac Positive (brown guaiac positive stool 2+ prostate, no rectal masses normal genitalia) Edema: LLE: 1+, RLE: 1+ Neurological: Yes: Alert, Oriented, Other (lethargic) Labs: CBC, BMP 09/27/19 07:10 09/27/19 07:10 Laboratory Tests 06/24/16 06/26/16 06/30/16 05:50 09:30 06:00 Total Bilirubin 2.8 H 1.1 H D AST 318 H 44 H D ALT 167 H 125 H D 72 D 10/07/16 10/08/16 07/24/17 08:00 07:20 15:00 Total Bilirubin 0.9 0.8 0.5 D AST 136 H D 31 D ALT 50 09/24/19 09/26/19 09/27/19 13:10 06:50 07:10 Total Bilirubin 2.3 H 3.0 H 4.0 H AST 210 H 537 H 1228 H ALT 164 H 284 H 568 H Problem List - Problems (1) Liver failure without hepatic coma Code(s): K72.90 - HEPATIC FAILURE, UNSPECIFIED WITHOUT COMA (2) Alcoholic hepatitis Code(s): K70.10 - ALCOHOLIC HEPATITIS WITHOUT ASCITES (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 Code(s): I42.6 - ALCOHOLIC CARDIOMYOPATHY (4) Jaundice Code(s): R17 - UNSPECIFIED JAUNDICE (5) Occult blood in stools Code(s): R19.5 - OTHER FECAL ABNORMALITIES (6) Alcohol withdrawal Code(s): F10.239 - ALCOHOL DEPENDENCE WITH WITHDRAWAL, UNSPECIFIED (7) Elevated LFTs Code(s): R94.5 - ABNORMAL RESULTS OF LIVER FUNCTION STUDIES (8) Atrial fibrillation with rapid ventricular response Code(s): I48.91 - UNSPECIFIED ATRIAL FIBRILLATION Assessment/Plan Assessment: - Although Josh is clearly at risk for acute alcoholic hepatitis and cirrhosis given the abrupt change in liver functions I suspect that he may have congestive hepatopathy due to congestive heart failure which decompensated while in [facility]. His thrombocytopenia implies that he has cirrhosis. He could alternative have superimposed acetaminophen toxicity. - Occult bleeding likely reflect hemorrhoids associated with alcohol intake and liver disease or perhaps congestive hepatopathy. Plan: - Given the rapidly progressing liver decompensation that may be related to alcohol steroids will be started - Stat acetaminophen level - Ammonia level and serial LFTs, INR, AFP - Sonogram to assess for ascites - PPI empirically - Stop Librium as he cannot metabolize it and please avoid hepatotoxins - Will eventually need panendoscopy - I discussed the need to absolutely stop all alcohol intake Discussed with Murphy Pavon NP
--- NOTE | 2019-09-27 14:37 | PN ---
Physical Exam: SUBJECTIVE: Patient seen and examined at the bedside. sitting up in bed, denies abdominal pain, nausea or vomiting. no chest pain overnight patient was restless. OBJECTIVE: Rosalino is a 54 year old male, with a significant past medical history of alcohol abuse who presents from [facility] (from detox) when he was found to have atrial fibrillation with RVR in ekg. Patient has not been on his usual daily cardiac medications for over a month, secondary to not having insurance. Patient admitted for afib with rvr, elevated bnp and acute etoh withdrawal with elevated LFTs. tele: afib 120s Vital Signs Period Temp Pulse Resp BP Sys/Ambriz Pulse Ox Last 24 Hr 97.3 F-100 F 90-126 20-22 115-146/59-86 98-98 GENERAL: The patient is awake, alert, oriented with episodes of restlessness. denies headaches or hallucinations. still with tremors. HEAD: Normal with no signs of trauma. EYES: PERRL, extraocular movements intact, sclera anicteric, conjunctiva clear. No ptosis. ENT: Ears normal, nares patent, oropharynx clear without exudates, moist mucous membranes. NECK: Trachea midline, full range of motion, supple. LUNGS: Breath sounds equal, clear to auscultation bilaterally, no wheezes HEART: irregular heart rate ABDOMEN: Soft, nontender, nondistended, normoactive bowel sounds EXTREMITIES: no edema. NEUROLOGICAL: Normal speech, gait not observed. PSYCH: Normal mood, normal affect. SKIN: Warm, dry, normal turgor, no rashes or lesions noted Laboratory Results - last 24 hr 09/27/19 09/27/19 07:10 07:10 WBC 5.4 RBC 3.87 L Hgb 13.3 Hct 39.7 MCV 102.4 H MCH 34.5 H MCHC 33.6 RDW 17.4 H Plt Count 71 L D MPV 9.1 Absolute Neuts (auto) 3.3 Neutrophils % 61.6 Lymphocytes % 20.9 Monocytes % 15.3 H Eosinophils % 1.1 Basophils % 1.1 Nucleated RBC % 0 Sodium 132 L Potassium 3.8 Chloride 97 L Carbon Dioxide 23 Anion Gap 12 BUN 34.7 H Creatinine 1.3 Est GFR (CKD-EPI)AfAm 70.69 Est GFR (CKD-EPI)NonAf 60.99 Random Glucose 82 Calcium 8.5 Magnesium 1.4 L Total Bilirubin 4.0 H AST 1228 H ALT 568 H Alkaline Phosphatase 157 H Total Protein 6.3 L Albumin 3.1 L Active Medications Generic Name Dose Route Start Last Admin Trade Name Arnulfo PRN Reason Stop Dose Admin Folic Acid 1 mg 09/26/19 10:00 09/27/19 10:12 Folic Acid - PO 1 mg DAILY JASMIN Administration Furosemide 40 mg 09/27/19 06:00 09/27/19 06:55 Lasix Injection - IVPUSH 40 mg BID@0600,1400 JASMIN Administration Lorazepam 0.5 mg 09/28/19 05:00 Ativan - PO 09/28/19 23:01 Q6H JASMIN Lorazepam 0.5 mg 09/28/19 00:00 Ativan - PO 09/29/19 00:00 Q4H PRN Symptoms of Withdrawal Lorazepam 0.5 mg 09/29/19 05:00 Ativan - PO 09/29/19 05:01 ONCE ONE Lorazepam 1 mg 09/27/19 05:00 09/27/19 10:13 Ativan - PO 09/27/19 23:01 1 mg 0500,1100,1700,2300 JASMIN Administration Lorazepam 1 mg 09/25/19 12:53 09/27/19 03:13 Ativan - PO 09/27/19 23:59 1 mg Q4H PRN Administration Symptoms of Withdrawal Melatonin 5 mg 09/24/19 22:05 09/26/19 23:07 Melatonin PO 5 mg HS PRN Administration INSOMNIA Metoprolol Succinate 150 mg 09/27/19 10:00 09/27/19 10:12 Toprol Xl - PO 150 mg DAILY JASMIN Administration Rivaroxaban 20 mg 09/24/19 18:00 09/26/19 17:16 Xarelto PO 20 mg DAILY@1800 JASMIN Administration Thiamine HCl 100 mg 09/25/19 10:00 09/27/19 10:11 Vitamin B1 - PO 100 mg DAILY JASMIN Administration ASSESSMENT/PLAN: Problem List - Problems (1) Alcohol withdrawal Assessment/Plan: transferred from [facility] d/c [facility] and start ativan taper on 09/26/2019 see [facility] Code(s): F10.239 - ALCOHOL DEPENDENCE WITH WITHDRAWAL, UNSPECIFIED (2) Elevated brain natriuretic peptide (BNP) level Assessment/Plan: on lasix iv BID with close monitoring of intake and output Code(s): R79.89 - OTHER SPECIFIED ABNORMAL FINDINGS OF BLOOD CHEMISTRY (3) Atrial fibrillation with rapid ventricular response Assessment/Plan: monitor on tele on toprol and xarelto toprol increased to toprol 150mg per cardiology recommendations. Code(s): I48.91 - UNSPECIFIED ATRIAL FIBRILLATION (4) Alcohol-induced anxiety disorder Assessment/Plan: changed librium to ativan taper as patient has elevated liver enzymes Code(s): F10.980 - ALCOHOL USE, UNSP WITH ALCOHOL-INDUCED ANXIETY DISORDER (5) Atrial fibrillation Assessment/Plan: rate control with toprol, on xarelto Code(s): I48.91 - UNSPECIFIED ATRIAL FIBRILLATION Qualifiers: Atrial fibrillation type: unspecified Qualified Code(s): I48.91 - Unspecified atrial fibrillation (6) Thrombocytopenia Assessment/Plan: monitor with daily labs monitor in the abstinence of alcohol Code(s): D69.6 - THROMBOCYTOPENIA, UNSPECIFIED (7) Elevated LFTs Assessment/Plan: GI evaluated patient Patient to be started on steriods given the elevation of his LFTs. stat acetaminophel levels ordered, ammonia and serial lfts, inr and afp also ordered abdominal ultrasound/abdominal sonogram to assess for asictes continue ativan taper alcohol cessation discussed Code(s): R94.5 - ABNORMAL RESULTS OF LIVER FUNCTION STUDIES (8) Left ventricular dysfunction Assessment/Plan: Severe LV dysfunction with Heart failure and elevated BNP. 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 - New Patient This patient is new to me today: No - Critical Care Critical Care patient: No - Discharge Referral Referred to [facility] Med P.C.: No
--- NOTE | 2019-09-27 16:04 | PN ---
Progress Note, Physician Chief Complaint: Presently resting comfortably History of Present Illness: This is a 54yo man with a PMH of a-fib (on xarelto and metoprolol), HTN, alcohol abuse who was sent to the ED from detox due to tachycardia. Per Mr Marilee , he has been off of his home medications for the past month due to losing his insurance. He was admitted to detox at [facility] today and had an EKG completed showing HR in the 140's. He reports orthopnea and PND ECG with Afib RVR and incomplete RBBB. No ischemic changes. Echo 09/25/19 EF 15-20% with normal LV size mild MR moderate RV hypokinesis. Being treated for acute HFrEF. - Current Medication List Current Medications: Active Medications Folic Acid (Folic Acid -) 1 mg PO DAILY [facility] Last Admin: 09/27/19 10:12 Dose: 1 mg Furosemide (Lasix Injection -) 40 mg IVPUSH BID@0600,1400 [facility] Last Admin: 09/27/19 14:37 Dose: 40 mg Hydrocortisone Sodium Succinate (Solu-Cortef -) 100 mg IVPB Q8H JASMIN Lorazepam (Ativan -) 0.5 mg PO Q6H [facility] Stop: 09/28/19 23:01 Lorazepam (Ativan -) 0.5 mg PO Q4H PRN PRN Reason: Symptoms of Withdrawal Stop: 09/29/19 00:00 Lorazepam (Ativan -) 0.5 mg PO ONCE ONE Stop: 09/29/19 05:01 Lorazepam (Ativan -) 1 mg PO 0500,1100,1700,2300 [facility] Stop: 09/27/19 23:01 Last Admin: 09/27/19 10:13 Dose: 1 mg Lorazepam (Ativan -) 1 mg PO Q4H PRN PRN Reason: Symptoms of Withdrawal Stop: 09/27/19 23:59 Last Admin: 09/27/19 14:37 Dose: 1 mg Melatonin (Melatonin) 5 mg PO HS PRN PRN Reason: INSOMNIA Last Admin: 09/26/19 23:07 Dose: 5 mg Metoprolol Succinate (Toprol Xl -) 150 mg PO DAILY [facility] Last Admin: 09/27/19 10:12 Dose: 150 mg Pantoprazole Sodium (Protonix -) 40 mg PO BID [facility] Rivaroxaban (Xarelto) 20 mg PO DAILY@1800 [facility] Last Admin: 09/26/19 17:16 Dose: 20 mg Thiamine HCl (Vitamin B1 -) 100 mg PO DAILY [facility] Last Admin: 09/27/19 10:11 Dose: 100 mg - Objective Vital Signs: Vital Signs Temperature 97.9 F 09/27/19 13:00 Pulse Rate 116 H 09/27/19 13:00 Respiratory Rate 22 H 09/27/19 13:00 Blood Pressure 122/71 09/27/19 13:00 O2 Sat by Pulse Oximetry (%) 98 09/27/19 08:46 Constitutional: Yes: No Distress HENT: Yes: WNL Neck: Yes: WNL Cardiovascular: Yes: Pulse Irregular, S1, S2 Respiratory: Yes: CTA Bilaterally Edema: Yes Edema: LLE: 1+, RLE: 1+ Labs: CBC, BMP 09/27/19 07:10 09/27/19 07:10 Assessment/Plan 54yo man alcoholic with ho of chronic a-fib (on xarelto and metoprolol). Presented for detox. Did not take his medications for at least a month. Noted to be in rapid Afib and new onset systolic heart failure ECG with Afib RVR and incomplete RBBB. No ischemic changes. He is still significantly volume overloaded. 1. Rapid Afib.: chronic AF with elevated HR due to medication non-compliance. Continue Metoprolol XL 150mg QD. Continue Xarelto AC Continue detox. 2. 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 Pt well perfused and warm. Pt has siginificant volume overload. Hold ACEI until heart failure has improved. Please monitoro I/O, lytes, and weight patient daily. Continue lasix 40mg IV bid.
[2019-09-27] MEDS: HYDROCORTISONE SOD SUCCINATE 100 MG/2 ML VIAL IVPB SCH (16:39)
[2019-09-27] MEDS: RIVAROXABAN 20 MG TABLET PO SCH (17:35)
[2019-09-27] MEDS: PANTOPRAZOLE 40 MG TABLET PO SCH (22:52)
[2019-09-27] MEDS: MELATONIN 5 MG TABLETS PO PRN (22:52)
[2019-09-28] MEDS ORDERED: LORazepam 0.5 MG TABLET PO PRN
[2019-09-28] MEDS: HYDROCORTISONE SOD SUCCINATE 100 MG/2 ML VIAL IVPB SCH ×4 (01:00→17:45)
[2019-09-28] MEDS ORDERED: chlordiazePOXIDE HCL 10 MG CAPSULE PO ONE (05:00)
[2019-09-28 06:30] LABS: BASO % 0.5 % (0-2.0); EOS % 0.2 % (0-4.5); HEMATOCRIT 36.6 % (35.4-49); HEMOGLOBIN 12.5 GM/dL (11.7-16.9); LYMPH % 14.8 % (8-40); MCH 34.5 pg (25.7-33.7); MEAN CELL VOLUME 101.3 fl (80-96); MEAN PLT VOLUME 9.6 fl (7.5-11.1); NEUT % 73.5 % (42.8-82.8); PLATELET COUNT 66 K/MM3 (134-434); RBC 3.62 M/mm3 (4.00-5.60); RDW 16.9 % (11.9-15.9); WHITE BLOOD COUNT 3.4 K/mm3 (4.0-10.0)
[2019-09-28 06:31] LABS: PROTHROMBIN TIME (PATIENT) 82.3 SEC (9.7-13.0)
[2019-09-28] MEDS: FUROSEMIDE 40 MG/4 ML INJECTABLE VIAL IVPUSH SCH ×2 (06:51→14:05)
[2019-09-28] MEDS: LORazepam 0.5 MG TABLET PO SCH ×4 (06:51→22:11)
[2019-09-28 06:55] LABS: ALBUMIN 2.7 g/dl (3.4-5.0); BILIRUBIN,TOTAL 2.7 mg/dL (0.2-1); BLOOD UREA NITROGEN 36.9 mg/dL (7-18); CALCIUM 8.5 mg/dL (8.5-10.1); MAGNESIUM 1.7 mg/dL (1.8-2.4); POTASSIUM 3.7 mmol/L (3.5-5.1); TOT PROT 6.1 g/dl (6.4-8.2)
[2019-09-28 06:56] LABS: BILIRUBIN,DIRECT 1.9 mg/dL (0.0-0.2)
[2019-09-28 07:05] LABS: INR 6.84 (0.83-1.09)
[2019-09-28] MEDS ORDERED: LACTULOSE 20 GM/30 ML UDC (FOR ORAL USE ONLY) PO PRN (07:34)
[2019-09-28] MEDS: FOLIC ACID 1 MG TABLET (FP) PO SCH (10:04)
[2019-09-28] MEDS: PANTOPRAZOLE 40 MG TABLET PO SCH ×2 (10:04→22:10)
[2019-09-28] MEDS: THIAMINE HCL 100 MG TABLET (FP) PO SCH (10:04)
--- NOTE | 2019-09-28 13:38 | PN ---
Progress Note, Physician Chief Complaint: Presently resting comfortably History of Present Illness: This is a 54yo man with a PMH of a-fib (on xarelto and metoprolol), HTN, alcohol abuse who was sent to the ED from detox due to tachycardia. Per Mr Marilee , he has been off of his home medications for the past month due to losing his insurance. He was admitted to detox at [facility] today and had an EKG completed showing HR in the 140's. He reports orthopnea and PND ECG with Afib RVR and incomplete RBBB. No ischemic changes. Echo 09/25/19 EF 15-20% with normal LV size mild MR moderate RV hypokinesis. Being treated for acute HFrEF. - Current Medication List Current Medications: Active Medications Folic Acid (Folic Acid -) 1 mg PO DAILY [facility] Last Admin: 09/28/19 10:04 Dose: 1 mg Furosemide (Lasix Injection -) 40 mg IVPUSH BID@0600,1400 [facility] Last Admin: 09/28/19 06:51 Dose: 40 mg Hydrocortisone Sodium Succinate (Solu-Cortef -) 100 mg IVPB Q8H ON [facility] Last Admin: 09/28/19 10:03 Dose: 100 mg Lactulose (Cephulac (Oral Use)) 20 gm PO TID ON LICENSE OF [facility] Lorazepam (Ativan -) 0.5 mg PO Q6H ON [facility] Stop: 09/28/19 23:01 Last Admin: 09/28/19 10:06 Dose: 0.5 mg Lorazepam (Ativan -) 0.5 mg PO Q4H PRN PRN Reason: Symptoms of Withdrawal Stop: 09/29/19 00:00 Lorazepam (Ativan -) 0.5 mg PO ONCE ONE Stop: 09/29/19 05:01 Melatonin (Melatonin) 5 mg PO HS PRN PRN Reason: INSOMNIA Last Admin: 09/27/19 22:52 Dose: 5 mg Metoprolol Succinate (Toprol Xl -) 150 mg PO DAILY [facility] Last Admin: 09/28/19 10:04 Dose: 150 mg Pantoprazole Sodium (Protonix -) 40 mg PO BID ON [facility] Last Admin: 09/28/19 10:04 Dose: 40 mg Thiamine HCl (Vitamin B1 -) 100 mg PO DAILY [facility] Last Admin: 09/28/19 10:04 Dose: 100 mg - Objective Vital Signs: Vital Signs Temperature 98.4 F 09/28/19 10:00 Pulse Rate 98 H 09/28/19 10:00 Respiratory Rate 18 09/28/19 10:00 Blood Pressure 108/76 09/28/19 10:00 O2 Sat by Pulse Oximetry (%) 98 09/28/19 08:52 Constitutional: Yes: No Distress Eyes: Yes: WNL HENT: Yes: WNL Neck: Yes: WNL Cardiovascular: Yes: Pulse Irregular, S1, S2 Respiratory: Yes: CTA Bilaterally Gastrointestinal: Yes: Soft ...Rectal Exam: Yes: WNL Edema: LLE: 1+, RLE: 1+ Labs: CBC, BMP 09/28/19 06:05 09/28/19 06:05 INR, PTT INR 6.84 (0.83-1.09) H* 09/28/19 06:05 Assessment/Plan 54yo man alcoholic with ho of chronic a-fib (on xarelto and metoprolol). Presented for detox. Did not take his medications for at least a month. Noted to be in rapid Afib and new onset systolic heart failure ECG with Afib RVR and incomplete RBBB. No ischemic changes. He is still significantly volume overloaded. 1. Rapid Afib.: chronic AF with elevated HR due to medication non-compliance. Continue Metoprolol XL 150mg QD. would continue Xarelto for AC Continue detox. 2. 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 Pt well perfused and warm. Pt has siginificant volume overload. Hold ACEI until heart failure has improved. Follow I/O, lytes, and weight patient daily. Continue lasix 40mg IV bid.
[2019-09-28] MEDS: LACTULOSE 20 GM/30 ML UDC (FOR ORAL USE ONLY) PO SCH ×2 (14:03→22:10)
--- NOTE | 2019-09-28 14:10 | PN ---
Physical Exam: SUBJECTIVE: Patient seen and examined at the bedside. laying in bed, in no acute distress , watching TV asking for ativan. denies any withdrawal symptoms, states ativan is helping. OBJECTIVE: inr 6.84, holding xarelto liver enzymes improving started on IV steriods by gi Rosalino is a 54 year old male, with a significant past medical history of alcohol abuse who presents from [facility] (from detox) when he was found to have atrial fibrillation with RVR in ekg. Patient has not been on his usual daily cardiac medications for over a month, secondary to not having insurance. During hospitalization patient developed acute on chronic diastolic hf and his liver enzymes increased. He has been started on lasix 40mg IV and all hepatoxic agents discontinued. Patient admitted for afib with rvr, elevated bnp and acute etoh withdrawal with elevated LFTs. tele: afib 120s-130s Vital Signs Period Temp Pulse Resp BP Sys/Ambriz Pulse Ox Last 24 Hr 97.6 F-98.4 F 92-101 18-20 97-108/45-76 95-98 GENERAL: The patient is awake, alert, oriented with episodes of restlessness. denies headaches or hallucinations. mild hand tremors. HEAD: Normal with no signs of trauma. EYES: PERRL, extraocular movements intact, sclera anicteric, conjunctiva clear. No ptosis. ENT: Ears normal, nares patent, oropharynx clear without exudates, moist mucous membranes. NECK: Trachea midline, full range of motion, supple. LUNGS: Breath sounds equal, clear to auscultation bilaterally, no wheezes HEART: irregular heart rate ABDOMEN: Soft, nontender, nondistended, normoactive bowel sounds EXTREMITIES: no edema. NEUROLOGICAL: Normal speech, gait not observed. PSYCH: Normal mood, normal affect. SKIN: Warm, dry, normal turgor, no rashes or lesions noted Laboratory Results - last 24 hr 09/27/19 09/28/19 09/28/19 18:08 06:05 06:05 WBC 3.4 L RBC 3.62 L Hgb 12.5 Hct 36.6 MCV 101.3 H MCH 34.5 H MCHC 34.0 RDW 16.9 H Plt Count 66 L MPV 9.6 Absolute Neuts (auto) 2.5 Neutrophils % 73.5 Lymphocytes % 14.8 D Monocytes % 11.0 H Eosinophils % 0.2 D Basophils % 0.5 Nucleated RBC % 0 PT with INR INR Sodium 132 L Potassium 3.7 Chloride 100 Carbon Dioxide 24 Anion Gap 8 BUN 36.9 H Creatinine 1.0 Est GFR (CKD-EPI)AfAm 97.08 Est GFR (CKD-EPI)NonAf 83.76 Random Glucose 155 H Calcium 8.5 Magnesium 1.7 L Iron TIBC Iron Saturation Unsaturated IBC Ferritin Total Bilirubin 2.7 H Direct Bilirubin AST 552 H ALT 472 H Alkaline Phosphatase 149 H Ammonia Total Protein 6.1 L Albumin 2.7 L Acetaminophen <2.0 09/28/19 09/28/19 09/28/19 06:05 06:05 06:05 WBC RBC Hgb Hct MCV MCH MCHC RDW Plt Count MPV Absolute Neuts (auto) Neutrophils % Lymphocytes % Monocytes % Eosinophils % Basophils % Nucleated RBC % PT with INR 82.30 H INR 6.84 H* Sodium Potassium Chloride Carbon Dioxide Anion Gap BUN Creatinine Est GFR (CKD-EPI)AfAm Est GFR (CKD-EPI)NonAf Random Glucose Calcium Magnesium Iron 28 L TIBC 285 Iron Saturation 9 L Unsaturated IBC 257 Ferritin 862.7 H Total Bilirubin Direct Bilirubin 1.9 H AST ALT Alkaline Phosphatase Ammonia 60.80 H Total Protein Albumin Acetaminophen Active Medications Generic Name Dose Route Start Last Admin Trade Name Freq PRN Reason Stop Dose Admin Folic Acid 1 mg 09/26/19 10:00 09/28/19 10:04 Folic Acid - PO 1 mg DAILY JASMIN Administration Furosemide 40 mg 09/27/19 06:00 09/28/19 14:05 Lasix Injection - IVPUSH 40 mg BID@0600,1400 JASMIN Administration Hydrocortisone Sodium Succinate 100 mg 09/27/19 16:00 09/28/19 10:03 Solu-Cortef - IVPB 100 mg Q8H JASMIN Administration Lactulose 20 gm 09/28/19 14:00 09/28/19 14:03 Cephulac (Oral Use) PO 20 gm TID JASMIN Administration Lorazepam 0.5 mg 09/28/19 05:00 09/28/19 10:06 Ativan - PO 09/28/19 23:01 0.5 mg Q6H JASMIN Administration Lorazepam 0.5 mg 09/28/19 00:00 Ativan - PO 09/29/19 00:00 Q4H PRN Symptoms of Withdrawal Lorazepam 0.5 mg 09/29/19 05:00 Ativan - PO 09/29/19 05:01 ONCE ONE Melatonin 5 mg 09/24/19 22:05 09/27/19 22:52 Melatonin PO 5 mg HS PRN Administration INSOMNIA Metoprolol Succinate 150 mg 09/27/19 10:00 09/28/19 10:04 Toprol Xl - PO 150 mg DAILY JASMIN Administration Pantoprazole Sodium 40 mg 09/27/19 22:00 09/28/19 10:04 Protonix - PO 40 mg BID JASMIN Administration Thiamine HCl 100 mg 09/25/19 10:00 09/28/19 10:04 Vitamin B1 - PO 100 mg DAILY JASMIN Administration ASSESSMENT/PLAN: Problem List - Problems (1) Elevated INR (international normalized ratio) Assessment/Plan: INR 6.84 holding xarelto in the setting of supratherpeutic inr monitor INR daily Code(s): R79.1 - ABNORMAL COAGULATION PROFILE (2) Elevated LFTs Assessment/Plan: GI evaluated patient Patient to be started on steriods given the elevation of his LFTs. stat acetaminophel levels ordered, ammonia and serial lfts, inr and afp also ordered abdominal ultrasound/abdominal sonogram to assess for asictes continue ativan taper alcohol cessation discussed Code(s): R94.5 - ABNORMAL RESULTS OF LIVER FUNCTION STUDIES (3) Alcohol withdrawal Assessment/Plan: transferred from [facility] d/ librium and start ativan taper on 09/26/2019 see [facility] Code(s): F10.239 - ALCOHOL DEPENDENCE WITH WITHDRAWAL, UNSPECIFIED (4) Elevated brain natriuretic peptide (BNP) level Assessment/Plan: on lasix iv BID with close monitoring of intake and output Code(s): R79.89 - OTHER SPECIFIED ABNORMAL FINDINGS OF BLOOD CHEMISTRY (5) Atrial fibrillation with rapid ventricular response Assessment/Plan: monitor on tele on toprol and xarelto (xarelto being held for elevated INR) toprol increased to toprol 150mg per cardiology recommendations. Code(s): I48.91 - UNSPECIFIED ATRIAL FIBRILLATION (6) Alcohol-induced anxiety disorder Assessment/Plan: changed librium to ativan taper as patient has elevated liver enzymes Code(s): F10.980 - ALCOHOL USE, UNSP WITH ALCOHOL-INDUCED ANXIETY DISORDER (7) Atrial fibrillation Assessment/Plan: rate control with toprol, hold xarelto Code(s): I48.91 - UNSPECIFIED ATRIAL FIBRILLATION Qualifiers: Atrial fibrillation type: unspecified Qualified Code(s): I48.91 - Unspecified atrial fibrillation (8) Thrombocytopenia Assessment/Plan: monitor with daily labs monitor in the abstinence of alcohol Code(s): D69.6 - THROMBOCYTOPENIA, UNSPECIFIED (9) Left ventricular dysfunction Assessment/Plan: Severe LV dysfunction with Heart failure and elevated BNP. 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 - New Patient This patient is new to me today: No - Critical Care Critical Care patient: No - Discharge Referral Referred to [facility] Med P.C.: No CIWA Score Nausea/Vomitin-No Nausea/No Vomiting Muscle Tremors: 1-None Visible, but Pimento Anxiety: 0-No Anxiety, at Ease Agitation: 0-Normal Activity Paroxysmal Sweats: 1-Minimal Palms Moist Orientation: 1-Uncertain about Date Tacttile Disturbances: 0-None Auditory Disturbances: 0-None Visual Disturbances: 0-None Headache: 0-None Present CIWA-Ar Total Score: 3 - Admission Criteria [facility] Guidelines: Admission for Medically Managed Detox: Requires at least one of the followin. CIWA greater than 12 2. Seizures within the past 24 hours 3. Delirium tremens within the past 24 hours 4. Hallucinations within the past 24 hours 5. Acute intervention needed for co occurring medical disorder 6. Acute intervention needed for co occurring psychiatric disorder 7. Severe withdrawal that cannot be handled at a lower level of care (continued vomiting, continued diarrhea, abnormal vital signs) requiring intravenous medication and/or fluids 8.
--- NOTE | 2019-09-28 17:17 | PN.GI ---
GI Progress Note Subjective: GI NOte: Mentally alert today. Less icteric. LFTs improving but INR > 6 - Objective Vital Signs: Vital Signs Temperature 97.5 F L 09/28/19 14:00 Pulse Rate 109 H 09/28/19 14:00 Respiratory Rate 09/28/19 14:00 Blood Pressure 105/95 09/28/19 14:00 O2 Sat by Pulse Oximetry (%) 98 09/28/19 08:52 Laboratory Tests 09/27/19 09/28/19 09/28/19 07:10 06:05 06:05 INR 6.84 H* Iron TIBC Iron Saturation Unsaturated IBC Ferritin Total Bilirubin 4.0 H 2.7 H Direct Bilirubin AST 1228 H 552 H ALT 568 H 472 H Alkaline Phosphatase 157 H 149 H Ammonia 09/28/19 09/28/19 06:05 06:05 INR Iron 28 L TIBC 285 Iron Saturation 9 L Unsaturated IBC 257 Ferritin 862.7 H Total Bilirubin Direct Bilirubin 1.9 H AST ALT Alkaline Phosphatase Ammonia 60.80 H Constitutional: Calm Eyes: Yes: Sclera Icterus ...Auscultate: Yes: Normoactive Bowel Sounds ...Palpate: Yes: Soft, Other (nontender) Labs: CBC, BMP 09/28/19 06:05 09/28/19 06:05 INR, PTT INR 6.84 (0.83-1.09) H* 09/28/19 06:05 Assessment/Plan Assessment: - Liver chemistries improving but INR elevation is worrisome. Sonogram reevaled a enlarged fatty liver, normal spleen and no ascites. Suspect acute alcoholic hepatitis vs congestive hepatopathy due to congestive heart failure which decompensated while in [facility]. Acetaminophen toxicity excluded - Occult bleeding likely reflect hemorrhoids associated with alcohol intake and liver disease or perhaps congestive hepatopathy or portal gastropathy. Plan: - Wean steroids - Serial ammonia level and LFTs, INR - PPI empirically - Stop Librium as he cannot metabolize it and please avoid hepatotoxins - Will eventually need panendoscopy - I again discussed the need to absolutely stop all alcohol intake Discussed with Murphy Pavon NP. 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
[2019-09-29] MEDS: HYDROCORTISONE SOD SUCCINATE 100 MG/2 ML VIAL IVPB SCH ×3 (02:08→17:31)
[2019-09-29] MEDS ORDERED: LORazepam 0.5 MG TABLET PO ONE (05:00)
[2019-09-29] MEDS: FUROSEMIDE 40 MG/4 ML INJECTABLE VIAL IVPUSH SCH ×2 (05:03→13:42)
[2019-09-29] MEDS: LACTULOSE 20 GM/30 ML UDC (FOR ORAL USE ONLY) PO SCH ×3 (05:03→20:59)
[2019-09-29 07:18] LABS: BASO % 0.1 % (0-2.0); EOS % 0.1 % (0-4.5); HEMATOCRIT 37.5 % (35.4-49); HEMOGLOBIN 12.7 GM/dL (11.7-16.9); LYMPH % 9.6 % (8-40); MCH 34.2 pg (25.7-33.7); MCHC 33.8 g/dl (32.0-35.9); MEAN CELL VOLUME 101.4 fl (80-96); MEAN PLT VOLUME 9.6 fl (7.5-11.1); MONO % 12.4 % (3.8-10.2); NEUT % 77.8 % (42.8-82.8); PLATELET COUNT 85 K/MM3 (134-434); RDW 16.9 % (11.9-15.9); WHITE BLOOD COUNT 6.8 K/mm3 (4.0-10.0)
[2019-09-29 07:27] LABS: INR 2.65 (0.83-1.09); PROTHROMBIN TIME (PATIENT) 31.6 SEC (9.7-13.0)
--- NOTE | 2019-09-29 07:35 | PN ---
Progress Note, Physician Chief Complaint: Examined in bed. Flat affect. No symptoms of withdrawal. INR trending down History of Present Illness: Rosalino is a 54 year old male, with a significant past medical history of alcohol abuse who presents from [facility] (from detox) when he was found to have Afib with RVR on ekg. Patient has not been on his usual daily cardiac medications for over a month, secondary to not having insurance. During hospitalization patient developed acute on chronic diastolic HF with transaminitis. - Current Medication List Current Medications: Active Medications Folic Acid (Folic Acid -) 1 mg PO DAILY [facility] Last Admin: 09/28/19 10:04 Dose: 1 mg Furosemide (Lasix Injection -) 40 mg IVPUSH BID@0600,1400 [facility] Last Admin: 09/29/19 05:03 Dose: 40 mg Hydrocortisone Sodium Succinate (Solu-Cortef -) 50 mg IVPB Q8H-IV [facility] Last Admin: 09/29/19 02:08 Dose: 50 mg Lactulose (Cephulac (Oral Use)) 20 gm PO TID [facility] Last Admin: 09/29/19 05:03 Dose: 20 gm Melatonin (Melatonin) 5 mg PO HS PRN PRN Reason: INSOMNIA Last Admin: 09/27/19 22:52 Dose: 5 mg Metoprolol Succinate (Toprol Xl -) 150 mg PO DAILY [facility] Last Admin: 09/28/19 10:04 Dose: 150 mg Pantoprazole Sodium (Protonix -) 40 mg PO BID [facility] Last Admin: 09/28/19 22:10 Dose: 40 mg Thiamine HCl (Vitamin B1 -) 100 mg PO DAILY [facility] Last Admin: 09/28/19 10:04 Dose: 100 mg - Objective Vital Signs: Vital Signs Temperature 97.8 F 09/29/19 06:00 Pulse Rate 111 H 09/29/19 06:00 Respiratory Rate 19 09/29/19 06:00 Blood Pressure 105/73 09/29/19 06:00 O2 Sat by Pulse Oximetry (%) 98 09/28/19 22:00 Constitutional: Yes: Well Nourished, No Distress, Calm Eyes: Yes: WNL, Conjunctiva Clear HENT: Yes: WNL, Atraumatic, Normocephalic Neck: Yes: WNL, Supple, Trachea Midline Cardiovascular: Yes: WNL, Regular Rate and Rhythm Respiratory: Yes: WNL, Regular, CTA Bilaterally Gastrointestinal: Yes: WNL, Normal Bowel Sounds ...Rectal Exam: Yes: Deferred Genitourinary: Yes: WNL Breast(s): Yes: WNL Musculoskeletal: Yes: WNL Extremities: Yes: WNL Edema: No Peripheral Pulses WNL: Yes Peripheral Pulses: Left Radial: 2+, Right Radial: 2+, Left Doralis Pedis: 2+, Right Dorsalis Pedis: 2+, Left Femoral: 2+, Right Femoral: 2+ Integumentary: Yes: WNL Neurological: Yes: WNL, Alert, Oriented ...Motor Strength: WNL Psychiatric: Yes: Other (flat affect) Labs: INR, PTT INR 2.65 (0.83-1.09) H 09/29/19 06:25 - ....Imaging Ultrasound: Report Reviewed (Abd: fatty enlarged liver , GB wall thickening) Problem List - Problems (1) Alcohol withdrawal Assessment/Plan: linrium protocol truncated d/t elevated LTFs changed to ativan and completed c/w ativan 0.5 mg po prn c/w thiamine, folate monitor CIWA, now 3 Code(s): F10.239 - ALCOHOL DEPENDENCE WITH WITHDRAWAL, UNSPECIFIED (2) Elevated INR (international normalized ratio) Assessment/Plan: INR trending down to 2.65 xarelto on hold continue to monitor INR Code(s): R79.1 - ABNORMAL COAGULATION PROFILE (3) Elevated LFTs Assessment/Plan: GI following c/w solucortef no ascites seen on US avoid hepatotioxic agents hepatatis serologies pending Code(s): R94.5 - ABNORMAL RESULTS OF LIVER FUNCTION STUDIES (4) Elevated brain natriuretic peptide (BNP) level Assessment/Plan: eleavted on admission c/w lasix BID IV daily weights strict I/Os Code(s): R79.89 - OTHER SPECIFIED ABNORMAL FINDINGS OF BLOOD CHEMISTRY (5) Left ventricular dysfunction Assessment/Plan: Severe LV dysfunction with Heart failure and elevated BNP. tachycardia most likelt related to alcoholic cardiomyopathy c/w lasix 40mg IV BID monitor intake and output with daily weights Code(s): I51.9 - HEART DISEASE, UNSPECIFIED (6) Thrombocytopenia Assessment/Plan: Plt 85 today, no s/s of bleeding continue to monitor Code(s): D69.6 - THROMBOCYTOPENIA, UNSPECIFIED (7) Alcohol-induced anxiety disorder Assessment/Plan: c/w ativan prn Code(s): F10.980 - ALCOHOL USE, UNSP WITH ALCOHOL-INDUCED ANXIETY DISORDER (8) Atrial fibrillation Assessment/Plan: rate controlled now c/w tele c/w metoprolol succinate 150mg Code(s): I48.91 - UNSPECIFIED ATRIAL FIBRILLATION Qualifiers: Atrial fibrillation type: unspecified Qualified Code(s): I48.91 - Unspecified atrial fibrillation (9) Prophylactic measure Assessment/Plan: FEN Fluids: no additional IVF, on lasix Electrolytes: replete as indicated Nutrition: low protein, low sodium DVT prophylaxis: oob, ambulation Dispo: continues to require inpatient care. Full code discharge planning to home-pt does not want to go to [facility] Code(s): Z29.9 - ENCOUNTER FOR PROPHYLACTIC MEASURES, UNSPECIFIED Visit type - Emergency Visit Emergency Visit: Yes ED Registration Date: 09/24/19 Care time: The patient presented to the Emergency Department on the above date and was hospitalized for further evaluation of their emergent condition. - New Patient This patient is new to me today: Yes Date on this admission: 09/29/19 - Critical Care Critical Care patient: No - Discharge Referral Referred to [facility] No CIWA Score - CIWA Score Nausea/Vomitin-No Nausea/No Vomiting Muscle Tremors: 1-None Visible, but [place] Anxiety: 1-Mildly Anxious Agitation: 0-Normal Activity Paroxysmal Sweats: No Perspiration Orientation: 1-Uncertain about Date Tacttile Disturbances: 0-None Auditory Disturbances: 0-None Visual Disturbances: 0-None Headache: 0-None Present CIWA-Ar Total Score: 3
[2019-09-29 08:24] LABS: ALBUMIN 2.9 g/dl (3.4-5.0); BILIRUBIN,TOTAL 1.8 mg/dL (0.2-1); BLOOD UREA NITROGEN 42.5 mg/dL (7-18); CALCIUM 8.3 mg/dL (8.5-10.1); CREATININE 1.1 mg/dL (0.55-1.3); MAGNESIUM 1.5 mg/dL (1.8-2.4); POTASSIUM 3.2 mmol/L (3.5-5.1); TOT PROT 6.2 g/dl (6.4-8.2)
[2019-09-29] MEDS: FOLIC ACID 1 MG TABLET (FP) PO SCH (09:27)
[2019-09-29] MEDS: PANTOPRAZOLE 40 MG TABLET PO SCH ×2 (09:27→20:59)
[2019-09-29] MEDS: THIAMINE HCL 100 MG TABLET (FP) PO SCH (09:28)
[2019-09-29] MEDS: LORazepam 0.5 MG TABLET PO PRN (09:36)
--- NOTE | 2019-09-29 13:45 | PN ---
Progress Note, Physician Chief Complaint: +SOB Tele: afib withi VR 90-100s History of Present Illness: 54yo man alcoholic with ho of chronic a-fib (on xarelto and metoprolol). Presented for detox. Did not take his medications for at least a month. Noted to be in rapid Afib and new onset systolic heart failure ECG with Afib RVR and incomplete RBBB. No ischemic changes. Volume overloaded - Current Medication List Current Medications: Active Medications Folic Acid (Folic Acid -) 1 mg PO DAILY [facility] Last Admin: 09/29/19 09:27 Dose: 1 mg Furosemide (Lasix Injection -) 40 mg IVPUSH BID@0600,1400 [facility] Last Admin: 09/29/19 13:42 Dose: 40 mg Hydrocortisone Sodium Succinate (Solu-Cortef -) 50 mg IVPB Q8H-IV [facility] Last Admin: 09/29/19 09:27 Dose: 50 mg Lactulose (Cephulac (Oral Use)) 20 gm PO TID [facility] Last Admin: 09/29/19 13:42 Dose: 20 gm Lorazepam (Ativan -) 0.5 mg PO BID PRN PRN Reason: ANXIETY Last Admin: 09/29/19 09:36 Dose: 0.5 mg Melatonin (Melatonin) 5 mg PO HS PRN PRN Reason: INSOMNIA Last Admin: 09/27/19 22:52 Dose: 5 mg Metoprolol Succinate (Toprol Xl -) 150 mg PO DAILY [facility] Last Admin: 09/29/19 09:27 Dose: 150 mg Pantoprazole Sodium (Protonix -) 40 mg PO BID [facility] Last Admin: 09/29/19 09:27 Dose: 40 mg Thiamine HCl (Vitamin B1 -) 100 mg PO DAILY [facility] Last Admin: 09/29/19 09:28 Dose: 100 mg - Objective Vital Signs: Vital Signs Temperature 98 F 09/29/19 09:37 Pulse Rate 118 H 09/29/19 09:37 Respiratory Rate 18 09/29/19 09:37 Blood Pressure 125/76 09/29/19 09:37 O2 Sat by Pulse Oximetry (%) 98 09/28/19 22:00 Constitutional: Yes: No Distress Neck: Yes: Supple Cardiovascular: Yes: Pulse Irregular, S1, S2 Respiratory: Yes: CTA Bilaterally Gastrointestinal: Yes: Soft Edema: LLE: 1+, RLE: 1+ Labs: CBC, BMP 09/29/19 06:25 09/29/19 06:25 INR, PTT INR 2.65 (0.83-1.09) H 09/29/19 06:25 Problem List - Problems (1) Dilated cardiomyopathy secondary to alcohol Code(s): I42.6 - ALCOHOLIC CARDIOMYOPATHY (2) Atrial fibrillation with rapid ventricular response Code(s): I48.91 - UNSPECIFIED ATRIAL FIBRILLATION Assessment/Plan 54yo man alcoholic with ho of chronic a-fib (on xarelto and metoprolol). Presented for detox. Did not take his medications for at least a month. Noted to be in rapid Afib and new onset systolic heart failure ECG with Afib RVR and incomplete RBBB. No ischemic changes. He is still significantly volume overloaded. 1. Rapid Afib.: chronic AF with elevated HR due to medication non-compliance and etoh withdrawal. Continue Metoprolol XL 150mg QD. HR's reasonable today with VR trend around upper 90s on average Rivaroxaban was stopped by primary team given liver disease Continue detox. 2. 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 Pt well perfused and warm. Hold ACEI until heart failure has improved. Follow I/O, lytes, and weight patient daily. Continue lasix 40mg IV bid.
--- NOTE | 2019-09-29 17:45 | PN ---
Progress Note (short form) - Note Progress Note: Patient seen and examined No complaints No asterixis Hepatic Panel Total Bilirubin 1.8 mg/dL (0.2-1) H 09/29/19 06:25 Direct Bilirubin 1.9 mg/dL (0.0-0.2) H 09/28/19 06:05 AST 433 U/L (15-37) H 09/29/19 06:25 ALT 465 U/L (13-61) H 09/29/19 06:25 Alkaline Phosphatase 184 U/L (45-117) H 09/29/19 06:25 Albumin 2.9 g/dl (3.4-5.0) L 09/29/19 06:25 INR, PTT INR 2.65 (0.83-1.09) H 09/29/19 06:25 LFTs much improved Unclear if this was ETOH hepatitis vs ischemic hepatopathy from AF with RVR - favor the latter given rapid improvement Have decreased steroids to 25mg q8h of hydrocortisone If continues to improve, would taper to off in next 24-48 hours
[2019-09-30] MEDS: HYDROCORTISONE SOD SUCCINATE 100 MG/2 ML VIAL IVPB SCH ×3 (03:01→17:34)
[2019-09-30 03:08] LABS: HEP B CORE AB, TOT Negative (Negative)
[2019-09-30] MEDS: FUROSEMIDE 40 MG/4 ML INJECTABLE VIAL IVPUSH SCH ×2 (06:08→14:18)
[2019-09-30] MEDS: LACTULOSE 20 GM/30 ML UDC (FOR ORAL USE ONLY) PO SCH ×3 (06:08→22:16)
[2019-09-30 07:28] LABS: BASO % 0.3 % (0-2.0); HEMATOCRIT 39.5 % (35.4-49); HEMOGLOBIN 13.2 GM/dL (11.7-16.9); INR 2.09 (0.83-1.09); MCH 33.7 pg (25.7-33.7); MCHC 33.3 g/dl (32.0-35.9); MEAN CELL VOLUME 101.3 fl (80-96); MEAN PLT VOLUME 9.8 fl (7.5-11.1); MONO % 12.7 % (3.8-10.2); PLATELET COUNT 96 K/MM3 (134-434); PROTHROMBIN TIME (PATIENT) 24.8 SEC (9.7-13.0); WHITE BLOOD COUNT 6.1 K/mm3 (4.0-10.0)
[2019-09-30 07:59] LABS: ALBUMIN 2.9 g/dl (3.4-5.0); BILIRUBIN,TOTAL 2.1 mg/dL (0.2-1); BLOOD UREA NITROGEN 47.6 mg/dL (7-18); CALCIUM 8.7 mg/dL (8.5-10.1); CREATININE 1.3 mg/dL (0.55-1.3); MAGNESIUM 1.7 mg/dL (1.8-2.4); POTASSIUM 3.4 mmol/L (3.5-5.1); TOT PROT 6.5 g/dl (6.4-8.2)
[2019-09-30] MEDS: PANTOPRAZOLE 40 MG TABLET PO SCH (10:22)
[2019-09-30] MEDS: FOLIC ACID 1 MG TABLET (FP) PO SCH (10:22)
[2019-09-30] MEDS: THIAMINE HCL 100 MG TABLET (FP) PO SCH (10:23)
--- NOTE | 2019-09-30 10:43 | PN ---
Progress Note, Physician History of Present Illness: pt seen and examined today in nad. lying flat, comfortable. no sob at rest. states he still feels [place]. - Current Medication List Current Medications: Active Medications Folic Acid (Folic Acid -) 1 mg PO DAILY [facility] Last Admin: 09/30/19 10:22 Dose: 1 mg Furosemide (Lasix Injection -) 40 mg IVPUSH BID@0600,1400 [facility] Last Admin: 09/30/19 06:08 Dose: 40 mg Hydrocortisone Sodium Succinate (Solu-Cortef -) 25 mg IVPB Q8H-IV [facility] Last Admin: 09/30/19 10:22 Dose: 25 mg Lactulose (Cephulac (Oral Use)) 20 gm PO TID [facility] Last Admin: 09/30/19 06:08 Dose: 20 gm Lorazepam (Ativan -) 0.5 mg PO BID PRN PRN Reason: ANXIETY Last Admin: 09/29/19 09:36 Dose: 0.5 mg Melatonin (Melatonin) 5 mg PO HS PRN PRN Reason: INSOMNIA Last Admin: 09/27/19 22:52 Dose: 5 mg Metoprolol Succinate (Toprol Xl -) 150 mg PO DAILY [facility] Last Admin: 09/30/19 10:23 Dose: Not Given Pantoprazole Sodium (Protonix -) 40 mg PO BID [facility] Last Admin: 09/30/19 10:22 Dose: 40 mg Thiamine HCl (Vitamin B1 -) 100 mg PO DAILY [facility] Last Admin: 09/30/19 10:23 Dose: 100 mg - Objective Vital Signs: Vital Signs Temperature 98.1 F 09/30/19 05:00 Pulse Rate 95 H 09/30/19 05:00 Respiratory Rate 20 09/30/19 05:00 Blood Pressure 115/66 09/30/19 05:00 O2 Sat by Pulse Oximetry (%) 98 09/30/19 09:47 Constitutional: Yes: No Distress, Calm Eyes: Yes: Conjunctiva Clear, EOM Intact HENT: Yes: Atraumatic, Normocephalic Neck: Yes: Supple, Trachea Midline Cardiovascular: Yes: Pulse Irregular, S1, S2. No: Regular Rate and Rhythm, Bradycardia, Tachycardia, Bruit, JVD, Gallop, Murmur, Rub, S3, S4, Varicosities Respiratory: Yes: Regular, SOB on Exertion. No: Rales, Rhonchi, SOB, Wheezes Gastrointestinal: Yes: Normal Bowel Sounds, Soft. No: Distention, Tenderness Musculoskeletal: Yes: WNL Edema: Yes Edema: LLE: 1+, RLE: 1+ Peripheral Pulses WNL: Yes Neurological: Yes: Alert, Oriented Psychiatric: Yes: Alert, Oriented Labs: CBC, BMP 09/30/19 06:48 09/30/19 06:48 INR, PTT INR 2.09 (0.83-1.09) H 09/30/19 06:48 - ....Imaging Chest X-ray: Report Reviewed, Image Reviewed EKG: Report Reviewed, Image Reviewed Other: Report Reviewed, Image Reviewed (tele-Afib, HR adequately controlled) Assessment/Plan 54yo man alcoholic with ho of chronic a-fib (on xarelto and metoprolol). Presented for detox. Did not take his medications for at least a month. Noted to be in rapid Afib and new onset systolic heart failure ECG with Afib RVR and incomplete RBBB. No ischemic changes. He is still significantly volume overloaded. Rapid Afib.: chronic AF with elevated HR due to medication non-compliance and etoh withdrawal. -HR adequately controlled currently -Continue Metoprolol XL 150mg QD. -Rivaroxaban was stopped by primary team given liver disease -Continue detox. 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 -volume status improving, still mildly volume overloaded. -Hold ACEI until heart failure has improved. -Follow I/O, lytes, and weigh patient daily. -Continue lasix 40mg IV bid today -likely reduce lasix or transition to po tomorrow
--- NOTE | 2019-09-30 15:17 | PN.GI ---
GI Progress Note Subjective: No acute events States that he is "getting there" No abdominal pain - Objective Vital Signs: Vital Signs Temperature 97.5 F L 09/30/19 09:00 Pulse Rate 108 H 09/30/19 09:00 Respiratory Rate 09/30/19 09:00 Blood Pressure 98/74 09/30/19 09:00 O2 Sat by Pulse Oximetry (%) 98 09/30/19 09:47 Constitutional: Calm Eyes: No: Sclera Icterus Cardiovascular: Yes: Tachycardia, Pulse Irregular Respiratory: Yes: CTA Bilaterally Gastrointestinal Inspection: No: Distention ...Auscultate: Yes: Normoactive Bowel Sounds ...Palpate: Yes: Soft. No: Hepatomegaly, Splenomegaly, Tenderness Edema: LLE: 1+, RLE: 1+ Neurological: Yes: Alert. No: Asterixis Labs: CBC, BMP 09/30/19 06:48 09/30/19 06:48 INR, PTT INR 2.09 (0.83-1.09) H 09/30/19 06:48 Hepatic Panel Total Bilirubin 2.1 mg/dL (0.2-1) H 09/30/19 06:48 Direct Bilirubin 1.9 mg/dL (0.0-0.2) H 09/28/19 06:05 AST 423 U/L (15-37) H 09/30/19 06:48 ALT 484 U/L (13-61) H 09/30/19 06:48 Alkaline Phosphatase 205 U/L (45-117) H 09/30/19 06:48 Albumin 2.9 g/dl (3.4-5.0) L 09/30/19 06:48 Problem List - Problems (1) Elevated LFTs Assessment/Plan: Suspect ischemic hepatopathy. Marked transaminase elevation not seen in alcoholic hepatitis Continue to taper off solucortef. BID tomorrow, then once daily then D/C Will need hepatitis B vaccination Monitor LFTs / PT/INR daily Avoid hepatotoxic agents Code(s): R94.5 - ABNORMAL RESULTS OF LIVER FUNCTION STUDIES
--- NOTE | 2019-09-30 15:24 | PN ---
Physical Exam: SUBJECTIVE: Patient seen and examined OBJECTIVE: Rosalino is a 54 year old male, with a significant past medical history of alcohol abuse who presents from [facility] (from detox) when he was found to have atrial fibrillation with RVR in ekg. Patient has not been on his usual daily cardiac medications for over a month, secondary to not having insurance. During hospitalization patient developed acute on chronic diastolic hf and his liver enzymes increased. He has been started on lasix 40mg IV and all hepatoxic agents discontinued. Patient admitted for afib with rvr, elevated bnp and acute etoh withdrawal with elevated LFTs. inr 2.06, xarelto on hold Vital Signs Period Temp Pulse Resp BP Sys/Ambriz Pulse Ox Last 24 Hr 97.3 F-98.1 F 88-108 18-20 86-115/60-74 98-98 GENERAL: The patient is awake, alert, oriented with episodes of restlessness. denies headaches or hallucinations. mild hand tremors. HEAD: Normal with no signs of trauma. EYES: PERRL, extraocular movements intact, sclera anicteric, conjunctiva clear. No ptosis. ENT: Ears normal, nares patent, oropharynx clear without exudates, moist mucous membranes. NECK: Trachea midline, full range of motion, supple. LUNGS: Breath sounds equal, clear to auscultation bilaterally, no wheezes HEART: irregular heart rate ABDOMEN: Soft, nontender, nondistended, normoactive bowel sounds EXTREMITIES: no edema. NEUROLOGICAL: Normal speech, gait not observed. PSYCH: Normal mood, normal affect. SKIN: Warm, dry, normal turgor, no rashes or lesions noted Laboratory Results - last 24 hr 09/27/19 09/28/19 09/28/19 14:00 06:05 06:05 WBC RBC Hgb Hct MCV MCH MCHC RDW Plt Count MPV Absolute Neuts (auto) Neutrophils % Lymphocytes % Monocytes % Eosinophils % Basophils % Nucleated RBC % PT with INR INR Sodium Potassium Chloride Carbon Dioxide Anion Gap BUN Creatinine Est GFR (CKD-EPI)AfAm Est GFR (CKD-EPI)NonAf Random Glucose Calcium Magnesium Total Bilirubin AST ALT Alkaline Phosphatase Ammonia Total Protein Albumin Tumor Marker AFP 1.6 SUZIE Screen Negative Smooth [employer]GER Intrp 8 Hep A IgM Ab Confirm Negative Hepatitis A Ab Total Positive H Hep Bs Antigen Negative Hep Bs Antibody Non reactive Hep B Core Total Ab Negative Hep B Core IgM Ab Negative Hepatitis Be Antibody Negative Hepatitis Be Antigen Negative 09/30/19 09/30/19 09/30/19 06:48 06:48 06:48 WBC 6.1 RBC 3.90 L Hgb 13.2 Hct 39.5 MCV 101.3 H MCH 33.7 MCHC 33.3 RDW 17.0 H Plt Count 96 L MPV 9.8 Absolute Neuts (auto) 4.6 Neutrophils % 75.0 Lymphocytes % 12.0 D Monocytes % 12.7 H Eosinophils % 0.0 D Basophils % 0.3 Nucleated RBC % 0 PT with INR 24.80 H INR 2.09 H Sodium 135 L Potassium 3.4 L Chloride 97 L Carbon Dioxide 26 Anion Gap 12 BUN 47.6 H Creatinine 1.3 Est GFR (CKD-EPI)AfAm 70.69 Est GFR (CKD-EPI)NonAf 60.99 Random Glucose 144 H Calcium 8.7 Magnesium 1.7 L Total Bilirubin 2.1 H AST 423 H ALT 484 H Alkaline Phosphatase 205 H Ammonia Total Protein 6.5 Albumin 2.9 L Tumor Marker AFP SUZIE Screen Smooth [employer]GER Intrp Hep A IgM Ab Confirm Hepatitis A Ab Total Hep Bs Antigen Hep Bs Antibody Hep B Core Total Ab Hep B Core IgM Ab Hepatitis Be Antibody Hepatitis Be Antigen 09/30/19 06:48 WBC RBC Hgb Hct MCV MCH MCHC RDW Plt Count MPV Absolute Neuts (auto) Neutrophils % Lymphocytes % Monocytes % Eosinophils % Basophils % Nucleated RBC % PT with INR INR Sodium Potassium Chloride Carbon Dioxide Anion Gap BUN Creatinine Est GFR (CKD-EPI)AfAm Est GFR (CKD-EPI)NonAf Random Glucose Calcium Magnesium Total Bilirubin AST ALT Alkaline Phosphatase Ammonia 43.50 H Total Protein Albumin Tumor Marker AFP SUZIE Screen Smooth [employer]GER Intrp Hep A IgM Ab Confirm Hepatitis A Ab Total Hep Bs Antigen Hep Bs Antibody Hep B Core Total Ab Hep B Core IgM Ab Hepatitis Be Antibody Hepatitis Be Antigen Active Medications Generic Name Dose Route Start Last Admin Trade Name Freq PRN Reason Stop Dose Admin Folic Acid 1 mg 09/26/19 10:00 09/30/19 10:22 Folic Acid - PO 1 mg DAILY JASMIN Administration Furosemide 40 mg 09/27/19 06:00 09/30/19 14:18 Lasix Injection - IVPUSH 40 mg BID@0600,1400 JASMIN Administration Hydrocortisone Sodium Succinate 25 mg 09/30/19 02:00 09/30/19 10:22 Solu-Cortef - IVPB 25 mg Q8H-IV JASMIN Administration Lactulose 20 gm 09/28/19 14:00 09/30/19 14:18 Cephulac (Oral Use) PO 20 gm TID JASMIN Administration Lorazepam 0.5 mg 09/29/19 09:06 09/29/19 09:36 Ativan - PO 0.5 mg BID PRN Administration ANXIETY Melatonin 5 mg 09/24/19 22:05 09/27/19 22:52 Melatonin PO 5 mg HS PRN Administration INSOMNIA Metoprolol Succinate 150 mg 09/27/19 10:00 09/30/19 10:23 Toprol Xl - PO Not Given DAILY JASMIN Thiamine HCl 100 mg 09/25/19 10:00 09/30/19 10:23 Vitamin B1 - PO 100 mg DAILY JASMIN Administration ASSESSMENT/PLAN: Problem List - Problems (1) Elevated INR (international normalized ratio) Assessment/Plan: INR 2.06 holding xarelto, can restart if cleared by GI. monitor INR daily Code(s): R79.1 - ABNORMAL COAGULATION PROFILE (2) Elevated LFTs Assessment/Plan: GI following on steriod taper no ascites seen on US avoid hepatotioxic agents hepatatis serologies negative except for hep a ab Code(s): R94.5 - ABNORMAL RESULTS OF LIVER FUNCTION STUDIES (3) Alcohol withdrawal Assessment/Plan: transferred from [facility]. competed ativan taper ciwa score low at this time without signs of withdrawal. patient prefers to go home and not back to [facility]. Code(s): F10.239 - ALCOHOL DEPENDENCE WITH WITHDRAWAL, UNSPECIFIED (4) Elevated brain natriuretic peptide (BNP) level Assessment/Plan: on lasix iv BID with close monitoring of intake and output Code(s): R79.89 - OTHER SPECIFIED ABNORMAL FINDINGS OF BLOOD CHEMISTRY (5) Atrial fibrillation with rapid ventricular response Assessment/Plan: monitor on tele on toprol and xarelto (xarelto being held for elevated INR) toprol increased to toprol 150mg per cardiology recommendations. Code(s): I48.91 - UNSPECIFIED ATRIAL FIBRILLATION (6) Alcohol-induced anxiety disorder Assessment/Plan: changed librium to ativan taper as patient has elevated liver enzymes Code(s): F10.980 - ALCOHOL USE, UNSP WITH ALCOHOL-INDUCED ANXIETY DISORDER (7) Atrial fibrillation Assessment/Plan: rate control with toprol, hold xarelto Code(s): I48.91 - UNSPECIFIED ATRIAL FIBRILLATION Qualifiers: Atrial fibrillation type: unspecified Qualified Code(s): I48.91 - Unspecified atrial fibrillation (8) Thrombocytopenia Assessment/Plan: monitor with daily labs monitor in the abstinence of alcohol Code(s): D69.6 - THROMBOCYTOPENIA, UNSPECIFIED (9) Left ventricular dysfunction Assessment/Plan: Severe LV dysfunction with Heart failure and elevated BNP. 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 - New Patient This patient is new to me today: No - Critical Care Critical Care patient: No - Discharge Referral Referred to [facility] No CIWA Score Nausea/Vomitin-No Nausea/No Vomiting Muscle Tremors: None Anxiety: 0-No Anxiety, at Ease Agitation: 0-Normal Activity Paroxysmal Sweats: No Perspiration Orientation: 0-Oriented Tacttile Disturbances: 0-None Auditory Disturbances: 0-None Visual Disturbances: 0-None Headache: 0-None Present CIWA-Ar Total Score: 0 - Admission Criteria [facility]ASAS Guidelines: Admission for Medically Managed Detox: Requires at least one of the followin. CIWA greater than 12 2. Seizures within the past 24 hours 3. Delirium tremens within the past 24 hours 4. Hallucinations within the past 24 hours 5. Acute intervention needed for co occurring medical disorder 6. Acute intervention needed for co occurring psychiatric disorder 7. Severe withdrawal that cannot be handled at a lower level of care (continued vomiting, continued diarrhea, abnormal vital signs) requiring intravenous medication and/or fluids 8.
[2019-09-30] MEDS ORDERED: MAGNESIUM OXIDE 400 MG TABLET (FP) PO ONE (16:04)
[2019-09-30] MEDS ORDERED: POTASSIUM CHLORIDE TABS 20 MEQ TABLET.ER (FP) PO ONE (16:05)
[2019-09-30 16:47] VITALS: BMI 32.8
[2019-09-30] MEDS: LORazepam 0.5 MG TABLET PO PRN (17:34)
[2019-09-30] MEDS: MELATONIN 5 MG TABLETS PO PRN (22:16)
[2019-10-01] MEDS: HYDROCORTISONE SOD SUCCINATE 100 MG/2 ML VIAL IVPB SCH ×3 (02:00→21:31)
[2019-10-01] MEDS: LORazepam 0.5 MG TABLET PO PRN (03:55)
[2019-10-01] MEDS: LACTULOSE 20 GM/30 ML UDC (FOR ORAL USE ONLY) PO SCH ×3 (06:34→21:31)
[2019-10-01] MEDS: FUROSEMIDE 40 MG/4 ML INJECTABLE VIAL IVPUSH SCH (06:34)
[2019-10-01 07:13] LABS: BASO % 0.2 % (0-2.0); EOS % 0.2 % (0-4.5); HEMATOCRIT 38.6 % (35.4-49); MCH 33.7 pg (25.7-33.7); MCHC 33.7 g/dl (32.0-35.9); MEAN PLT VOLUME 9.7 fl (7.5-11.1); MONO % 18.3 % (3.8-10.2); NEUT % 69.3 % (42.8-82.8); PLATELET COUNT 109 K/MM3 (134-434); RBC 3.86 M/mm3 (4.00-5.60); RDW 16.5 % (11.9-15.9)
[2019-10-01 07:31] LABS: INR 1.47 (0.83-1.09); PROTHROMBIN TIME (PATIENT) 17.4 SEC (9.7-13.0)
--- NOTE | 2019-10-01 07:47 | PN ---
Progress Note, Physician Chief Complaint: Examined in bed. Anxious to go home. Does not what to return back to [facility] History of Present Illness: Rosalino is a 54 year old male, with a significant past medical history of alcohol abuse who presents from [facility] (from detox) when he was found to have Afib with RVR on ekg. Patient has not been on his usual daily cardiac medications for over a month, secondary to not having insurance. During hospitalization patient developed acute on chronic diastolic HF with transaminitis. - Current Medication List Current Medications: Active Medications Folic Acid (Folic Acid -) 1 mg PO DAILY [facility] Last Admin: 09/30/19 10:22 Dose: 1 mg Furosemide (Lasix Injection -) 40 mg IVPUSH BID@0600,1400 [facility] Last Admin: 10/01/19 06:34 Dose: 40 mg Hydrocortisone Sodium Succinate (Solu-Cortef -) 25 mg IVPB Q8H-IV [facility] Last Admin: 10/01/19 02:00 Dose: 25 mg Lactulose (Cephulac (Oral Use)) 20 gm PO TID [facility] Last Admin: 10/01/19 06:34 Dose: 20 gm Lorazepam (Ativan -) 0.5 mg PO BID PRN PRN Reason: ANXIETY Last Admin: 10/01/19 03:55 Dose: 0.5 mg Melatonin (Melatonin) 5 mg PO HS PRN PRN Reason: INSOMNIA Last Admin: 09/30/19 22:16 Dose: 5 mg Metoprolol Succinate (Toprol Xl -) 150 mg PO DAILY [facility] Last Admin: 09/30/19 10:23 Dose: Not Given Thiamine HCl (Vitamin B1 -) 100 mg PO DAILY [facility] Last Admin: 09/30/19 10:23 Dose: 100 mg - Objective Vital Signs: Vital Signs Temperature 98.0 F 10/01/19 06:35 Pulse Rate 100 H 10/01/19 06:35 Respiratory Rate 20 10/01/19 06:35 Blood Pressure 106/92 10/01/19 06:35 O2 Sat by Pulse Oximetry (%) 96 09/30/19 22:00 Additional Findings/Remarks: Constitutional: Yes: Well Nourished, No Distress, Calm Eyes: Yes: WNL, Conjunctiva Clear HENT: Yes: WNL, Atraumatic, Normocephalic Neck: Yes: WNL, Supple, Trachea Midline Cardiovascular: Yes: WNL, Regular Rate and Rhythm Respiratory: Yes: WNL, Regular, CTA Bilaterally Gastrointestinal: Yes: WNL, Normal Bowel Sounds ...Rectal Exam: Yes: Deferred Genitourinary: Yes: WNL Breast(s): Yes: WNL Musculoskeletal: Yes: WNL Extremities: Yes: WNL Edema: No Peripheral Pulses WNL: Yes Peripheral Pulses: Left Radial: 2+, Right Radial: 2+, Left Doralis Pedis: 2+, Right Dorsalis Pedis: 2+, Left Femoral: 2+, Right Femoral: 2+ Integumentary: Yes: WNL Neurological: Yes: WNL, Alert, Oriented ...Motor Strength: WNL Psychiatric: Yes: Other (flat affect) Labs: INR, PTT INR 1.47 (0.83-1.09) H 10/01/19 06:40 Problem List - Problems (1) Alcohol withdrawal Assessment/Plan: completed c/w ativan 0.5 mg po prn c/w thiamine, folate monitor CIWA, now 2 Code(s): F10.239 - ALCOHOL DEPENDENCE WITH WITHDRAWAL, UNSPECIFIED (2) Elevated INR (international normalized ratio) Assessment/Plan: INR trended down to 1.47 xarelto on hold continue to monitor INR Code(s): R79.1 - ABNORMAL COAGULATION PROFILE (3) Elevated LFTs Assessment/Plan: GI following c/w solucortef taper no ascites seen on US avoid hepatotioxic agents hepatatis serologies pending Code(s): R94.5 - ABNORMAL RESULTS OF LIVER FUNCTION STUDIES (4) Elevated brain natriuretic peptide (BNP) level Assessment/Plan: elevated on admission c/w lasix BID IV daily weights strict I/Os Code(s): R79.89 - OTHER SPECIFIED ABNORMAL FINDINGS OF BLOOD CHEMISTRY (5) Left ventricular dysfunction Assessment/Plan: Severe LV dysfunction with Heart failure and elevated BNP. tachycardia most likelt related to alcoholic cardiomyopathy c/w lasix 40mg IV BID monitor intake and output with daily weights Code(s): I51.9 - HEART DISEASE, UNSPECIFIED (6) Thrombocytopenia Assessment/Plan: Plt 109 today, no s/s of bleeding continue to monitor Code(s): D69.6 - THROMBOCYTOPENIA, UNSPECIFIED (7) Alcohol-induced anxiety disorder Assessment/Plan: c/w ativan prn Code(s): F10.980 - ALCOHOL USE, UNSP WITH ALCOHOL-INDUCED ANXIETY DISORDER (8) Atrial fibrillation Assessment/Plan: rate controlled now c/w metoprolol succinate 150mg Code(s): I48.91 - UNSPECIFIED ATRIAL FIBRILLATION Qualifiers: Atrial fibrillation type: unspecified Qualified Code(s): I48.91 - Unspecified atrial fibrillation (9) Prophylactic measure Assessment/Plan: FEN Fluids: no additional IVF, on lasix Electrolytes: replete as indicated Nutrition: low protein, low sodium DVT prophylaxis: oob, ambulation Dispo: continues to require inpatient care. Full code discharge planning to home-pt does not want to go to [facility] Code(s): Z29.9 - ENCOUNTER FOR PROPHYLACTIC MEASURES, UNSPECIFIED Visit type - Emergency Visit Emergency Visit: Yes ED Registration Date: 09/24/19 Care time: The patient presented to the Emergency Department on the above date and was hospitalized for further evaluation of their emergent condition. - New Patient This patient is new to me today: No - Critical Care Critical Care patient: No - Discharge Referral Referred to [facility] No CIWA Score - CIWA Score Nausea/Vomitin-No Nausea/No Vomiting Muscle Tremors: 1-None Visible, but [place] Anxiety: 1-Mildly Anxious Agitation: 0-Normal Activity Paroxysmal Sweats: No Perspiration Orientation: 0-Oriented Tacttile Disturbances: 0-None Auditory Disturbances: 0-None Visual Disturbances: 0-None Headache: 0-None Present CIWA-Ar Total Score: 2
[2019-10-01 07:53] LABS: BILIRUBIN,TOTAL 1.5 mg/dL (0.2-1); BLOOD UREA NITROGEN 40.5 mg/dL (7-18); CALCIUM 8.4 mg/dL (8.5-10.1); MAGNESIUM 1.6 mg/dL (1.8-2.4); POTASSIUM 3.8 mmol/L (3.5-5.1); TOT PROT 6.3 g/dl (6.4-8.2)
[2019-10-01] MEDS: THIAMINE HCL 100 MG TABLET (FP) PO SCH (11:26)
[2019-10-01] MEDS: FOLIC ACID 1 MG TABLET (FP) PO SCH (11:26)
--- NOTE | 2019-10-01 13:22 | PN ---
Progress Note, Physician Chief Complaint: Dizzy History of Present Illness: 54yo man alcoholic with ho of chronic a-fib (on xarelto and metoprolol). Presented for detox. Did not take his medications for at least a month. Noted to be in rapid Afib and new onset systolic heart failure ECG with Afib RVR and incomplete RBBB. No ischemic changes. Volume overloaded - Current Medication List Current Medications: Active Medications Folic Acid (Folic Acid -) 1 mg PO DAILY [facility] Last Admin: 10/01/19 11:26 Dose: 1 mg Hydrocortisone Sodium Succinate (Solu-Cortef -) 25 mg IVPB BID JASMIN Stop: 10/01/19 22:01 Last Admin: 10/01/19 11:27 Dose: 25 mg Hydrocortisone Sodium Succinate (Solu-Cortef -) 25 mg IVPUSH ONCE ONE Stop: 10/02/19 11:01 Lactulose (Cephulac (Oral Use)) 20 gm PO TID [facility] Last Admin: 10/01/19 06:34 Dose: 20 gm Lorazepam (Ativan -) 0.5 mg PO BID PRN PRN Reason: ANXIETY Last Admin: 10/01/19 03:55 Dose: 0.5 mg Melatonin (Melatonin) 5 mg PO HS PRN PRN Reason: INSOMNIA Last Admin: 09/30/19 22:16 Dose: 5 mg Metoprolol Succinate (Toprol Xl -) 150 mg PO DAILY [facility] Last Admin: 10/01/19 11:26 Dose: 150 mg Thiamine HCl (Vitamin B1 -) 100 mg PO DAILY [facility] Last Admin: 10/01/19 11:26 Dose: 100 mg - Objective Vital Signs: Vital Signs Temperature 98.0 F 10/01/19 06:35 Pulse Rate 100 H 10/01/19 06:35 Respiratory Rate 20 10/01/19 06:35 Blood Pressure 106/92 10/01/19 06:35 O2 Sat by Pulse Oximetry (%) 99 10/01/19 09:00 Constitutional: Yes: No Distress Neck: Yes: Supple Cardiovascular: Yes: Pulse Irregular, S1, S2 Respiratory: Yes: CTA Bilaterally Gastrointestinal: Yes: Soft Edema: LLE: Trace, RLE: Trace Labs: CBC, BMP 10/01/19 06:40 10/01/19 06:40 INR, PTT INR 1.47 (0.83-1.09) H 10/01/19 06:40 Problem List - Problems (1) Dilated cardiomyopathy secondary to alcohol Code(s): I42.6 - ALCOHOLIC CARDIOMYOPATHY (2) Atrial fibrillation with rapid ventricular response Code(s): I48.91 - UNSPECIFIED ATRIAL FIBRILLATION Assessment/Plan 54yo man alcoholic with ho of chronic a-fib (on xarelto and metoprolol). Presented for detox. Did not take his medications for at least a month. Noted to be in rapid Afib and new onset systolic heart failure ECG with Afib RVR and incomplete RBBB. No ischemic changes. He is still significantly volume overloaded. 1. Rapid Afib.: chronic AF with elevated HR due to medication non-compliance and etoh withdrawal. Continue Metoprolol XL 150mg QD. Consider NOAC if no contraindication. 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 If HR's don't improve will add digoxin 2. 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 Pt well perfused and warm. Hold ACEI as bp will not allow yet Follow I/O, lytes, and weight patient daily. Will stop furosemide as volume much improve Will likely restart on furosemide 40mg PO daily either tomorrow or next depending on exam, labs, and HR.
--- NOTE | 2019-10-01 15:16 | PN.GI ---
GI Progress Note Subjective: Pt seen/examined at bedside, feeling better overall, tolerating diet, denies abdominal pain, n/v. - Objective Vital Signs: Vital Signs Temperature 97.7 F 10/01/19 14:42 Pulse Rate 93 H 10/01/19 14:42 Respiratory Rate 10/01/19 14:42 Blood Pressure 120/58 L 10/01/19 14:42 O2 Sat by Pulse Oximetry (%) 99 10/01/19 10:00 Constitutional: Well Nourished, No Distress, Calm Cardiovascular: Yes: WNL, Regular Rate and Rhythm Respiratory: Yes: WNL, Regular, CTA Bilaterally ...Palpate: Yes: Other (Abd soft, nt, nd) Labs: CBC, BMP 10/01/19 06:40 10/01/19 06:40 INR, PTT INR 1.47 (0.83-1.09) H 10/01/19 06:40 Problem List - Problems (1) Elevated LFTs Assessment/Plan: 54yo male h/o etoh abuse with elevated LFTs. While may have some component of alcoholic liver disease, thought likely ischemic injury given degree of elevation and subsequent improvement. -Continue to closely monitor LFT trend and coags -Monitor HR and avoid hypotension -Continue tapering of solucortef as previously noted -Will need to initiate HBV vaccination series since non-immune -Continue to avoid nonessential hepatotoxic medications -Strict etoh abstinence advised Code(s): R94.5 - ABNORMAL RESULTS OF LIVER FUNCTION STUDIES
[2019-10-01] MEDS ORDERED: HEPATITIS B VIRUS VACCINE-PF 20 MCG/1ML PRE-FILLED SYRINGE IM ONE (17:00)
[2019-10-01] MEDS: MELATONIN 5 MG TABLETS PO PRN (21:37)
[2019-10-02] MEDS: LACTULOSE 20 GM/30 ML UDC (FOR ORAL USE ONLY) PO SCH ×2 (05:52→15:05)
[2019-10-02 06:37] VITALS: TEMP 97.4
[2019-10-02 07:13] LABS: BASO % 0.2 % (0-2.0); EOS % 0.5 % (0-4.5); HEMATOCRIT 38.8 % (35.4-49); LYMPH % 19.1 % (8-40); MCH 33.7 pg (25.7-33.7); MCHC 33.4 g/dl (32.0-35.9); MEAN CELL VOLUME 100.9 fl (80-96); MONO % 17.6 % (3.8-10.2); NEUT % 62.6 % (42.8-82.8); PLATELET COUNT 123 K/MM3 (134-434); RBC 3.84 M/mm3 (4.00-5.60); RDW 16.8 % (11.9-15.9); WHITE BLOOD COUNT 4.8 K/mm3 (4.0-10.0)
[2019-10-02 07:34] LABS: INR 1.28 (0.83-1.09); PROTHROMBIN TIME (PATIENT) 15.2 SEC (9.7-13.0)
--- NOTE | 2019-10-02 07:37 | PN ---
Progress Note, Physician History of Present Illness: Rosalino is a 54 year old male, with a significant past medical history of alcohol abuse who presents from [facility] (from detox) when he was found to have Afib with RVR on ekg. Patient has not been on his usual daily cardiac medications for over a month, secondary to not having insurance. During hospitalization patient developed acute on chronic diastolic HF with transaminitis. - Current Medication List Current Medications: Active Medications Folic Acid (Folic Acid -) 1 mg PO DAILY [facility] Last Admin: 10/01/19 11:26 Dose: 1 mg Hydrocortisone Sodium Succinate (Solu-Cortef -) 25 mg IVPUSH ONCE ONE Stop: 10/02/19 11:01 Lactulose (Cephulac (Oral Use)) 20 gm PO TID [facility] Last Admin: 10/02/19 05:52 Dose: 20 gm Lorazepam (Ativan -) 0.5 mg PO BID PRN PRN Reason: ANXIETY Last Admin: 10/01/19 03:55 Dose: 0.5 mg Melatonin (Melatonin) 5 mg PO HS PRN PRN Reason: INSOMNIA Last Admin: 10/01/19 21:37 Dose: 5 mg Metoprolol Succinate (Toprol Xl -) 150 mg PO DAILY [facility] Last Admin: 10/01/19 11:26 Dose: 150 mg Thiamine HCl (Vitamin B1 -) 100 mg PO DAILY [facility] Last Admin: 10/01/19 11:26 Dose: 100 mg - Objective Vital Signs: Vital Signs Temperature 97.4 F L 10/02/19 06:00 Pulse Rate 87 10/02/19 06:00 Respiratory Rate 18 10/02/19 06:00 Blood Pressure 123/86 10/02/19 06:00 O2 Sat by Pulse Oximetry (%) 99 10/01/19 22:00 Labs: INR, PTT INR 1.28 (0.83-1.09) H 10/02/19 06:35 Problem List - Problems (1) Alcohol withdrawal Code(s): F10.239 - ALCOHOL DEPENDENCE WITH WITHDRAWAL, UNSPECIFIED (2) Elevated INR (international normalized ratio) Code(s): R79.1 - ABNORMAL COAGULATION PROFILE (3) Elevated LFTs Code(s): R94.5 - ABNORMAL RESULTS OF LIVER FUNCTION STUDIES (4) Elevated brain natriuretic peptide (BNP) level Code(s): R79.89 - OTHER SPECIFIED ABNORMAL FINDINGS OF BLOOD CHEMISTRY (5) Left ventricular dysfunction Code(s): I51.9 - HEART DISEASE, UNSPECIFIED (6) Thrombocytopenia Code(s): D69.6 - THROMBOCYTOPENIA, UNSPECIFIED (7) Alcohol-induced anxiety disorder Code(s): F10.980 - ALCOHOL USE, UNSP WITH ALCOHOL-INDUCED ANXIETY DISORDER (8) Atrial fibrillation Code(s): I48.91 - UNSPECIFIED ATRIAL FIBRILLATION Qualifiers: Atrial fibrillation type: unspecified Qualified Code(s): I48.91 - Unspecified atrial fibrillation (9) Prophylactic measure Code(s): Z29.9 - ENCOUNTER FOR PROPHYLACTIC MEASURES, UNSPECIFIED
[2019-10-02 07:47] LABS: BILIRUBIN,TOTAL 1.5 mg/dL (0.2-1); BLOOD UREA NITROGEN 35.1 mg/dL (7-18); CALCIUM 8.5 mg/dL (8.5-10.1); CREATININE 0.9 mg/dL (0.55-1.3); MAGNESIUM 1.9 mg/dL (1.8-2.4); POTASSIUM 3.5 mmol/L (3.5-5.1); TOT PROT 6.4 g/dl (6.4-8.2)
[2019-10-02] MEDS: THIAMINE HCL 100 MG TABLET (FP) PO SCH (09:50)
[2019-10-02] MEDS: FOLIC ACID 1 MG TABLET (FP) PO SCH (09:50)
[2019-10-02 10:52] VITALS: BP 128/72; PULSE 97
[2019-10-02] MEDS ORDERED: HYDROCORTISONE SOD SUCCINATE 100 MG/2 ML VIAL IVPUSH ONE (11:00)
--- NOTE | 2019-10-02 13:43 | DS ---
Physical Exam: SUBJECTIVE: Patient seen and examined Rosalino is a 54 year old male, with a significant past medical history of alcohol abuse who presents from [facility] (from detox) when he was found to have Afib with RVR on ekg. Patient has not been on his usual daily cardiac medications for over a month, secondary to not having insurance. During hospitalization patient developed acute on chronic diastolic HF with transaminitis. OBJECTIVE: Vital Signs Period Temp Pulse Resp BP Sys/Ambriz Pulse Ox Last 24 Hr 97.4 F-98 F 87-104 18-20 116-128/58-86 98-99 PHYSICAL EXAM Constitutional: Yes: Well Nourished, No Distress, Calm Eyes: Yes: WNL, Conjunctiva Clear HENT: Yes: WNL, Atraumatic, Normocephalic Neck: Yes: WNL, Supple, Trachea Midline Cardiovascular: Yes: WNL, Regular Rate and Rhythm Respiratory: Yes: WNL, Regular, CTA Bilaterally Gastrointestinal: Yes: WNL, Normal Bowel Sounds ...Rectal Exam: Yes: Deferred Genitourinary: Yes: WNL Breast(s): Yes: WNL Musculoskeletal: Yes: WNL Extremities: Yes: WNL Edema: No Peripheral Pulses WNL: Yes Peripheral Pulses: Left Radial: 2+, Right Radial: 2+, Left Doralis Pedis: 2+, Right Dorsalis Pedis: 2+, Left Femoral: 2+, Right Femoral: 2+ Integumentary: Yes: WNL Neurological: Yes: WNL, Alert, Oriented ...Motor Strength: WNL Psychiatric: Yes: Other (flat affect) LABS Laboratory Results - last 24 hr 10/02/19 10/02/19 10/02/19 06:35 06:35 06:35 WBC 4.8 RBC 3.84 L Hgb 13.0 Hct 38.8 MCV 100.9 H MCH 33.7 MCHC 33.4 RDW 16.8 H Plt Count 123 L MPV 10.0 Absolute Neuts (auto) 3.0 Neutrophils % 62.6 Lymphocytes % 19.1 D Monocytes % 17.6 H Eosinophils % 0.5 D Basophils % 0.2 Nucleated RBC % 0 PT with INR 15.20 H INR 1.28 H Sodium Potassium Chloride Carbon Dioxide Anion Gap BUN Creatinine Est GFR (CKD-EPI)AfAm Est GFR (CKD-EPI)NonAf Random Glucose Calcium Magnesium Total Bilirubin AST ALT Alkaline Phosphatase Ammonia 72.00 H Total Protein Albumin 10/02/19 06:35 WBC RBC Hgb Hct MCV MCH MCHC RDW Plt Count MPV Absolute Neuts (auto) Neutrophils % Lymphocytes % Monocytes % Eosinophils % Basophils % Nucleated RBC % PT with INR INR Sodium 139 Potassium 3.5 Chloride 101 Carbon Dioxide 28 Anion Gap 10 BUN 35.1 H Creatinine 0.9 Est GFR (CKD-EPI)AfAm 110.27 Est GFR (CKD-EPI)NonAf 95.14 Random Glucose 159 H Calcium 8.5 Magnesium 1.9 Total Bilirubin 1.5 H AST 146 H ALT 322 H Alkaline Phosphatase 225 H Ammonia Total Protein 6.4 Albumin 3.0 L HOSPITAL COURSE: Date of Admission:09/24/19 Date of Discharge: 10/02/19 Problem List - Problems (1) Alcohol withdrawal Assessment/Plan: completed detox c/w thiamine, folate, mvi at home no sign of withdrawal Code(s): F10.239 - ALCOHOL DEPENDENCE WITH WITHDRAWAL, UNSPECIFIED (2) Elevated INR (international normalized ratio) Assessment/Plan: INR trended down to 1.47 xarelto on hold follow with home cardiologiston when to restart xarelto Code(s): R79.1 - ABNORMAL COAGULATION PROFILE (3) Elevated LFTs Assessment/Plan: completed solucortef. no futher steroids as outpatient no ascites seen on US avoid hepatotioxic agents hepatatis B naive.1st dose of HBV vaccine given. Instructions on 2 follow up doses given to patient Code(s): R94.5 - ABNORMAL RESULTS OF LIVER FUNCTION STUDIES (4) Elevated brain natriuretic peptide (BNP) level Assessment/Plan: elevated on admission c/w lasix 40mg daily at home daily weights Code(s): R79.89 - OTHER SPECIFIED ABNORMAL FINDINGS OF BLOOD CHEMISTRY (5) Left ventricular dysfunction Assessment/Plan: Severe LV dysfunction with Heart failure and elevated BNP. tachycardia most likelt related to alcoholic cardiomyopathy c/w lasix follow with multi operation machine operator when to restart ALEKSANDRA Code(s): I51.9 - HEART DISEASE, UNSPECIFIED (6) Thrombocytopenia Assessment/Plan: Plt 109 today, no s/s of bleeding continue to monitor Code(s): D69.6 - THROMBOCYTOPENIA, UNSPECIFIED (7) Alcohol-induced anxiety disorder Assessment/Plan: Code(s): F10.980 - ALCOHOL USE, UNSP WITH ALCOHOL-INDUCED ANXIETY DISORDER (8) Atrial fibrillation Assessment/Plan: rate controlled now c/w metoprolol succinate 150mg Code(s): I48.91 - UNSPECIFIED ATRIAL FIBRILLATION Qualifiers: Atrial fibrillation type: unspecified Qualified Code(s): I48.91 - Unspecified atrial fibrillation (9) Prophylactic measure Assessment/Plan: FEN Fluids: no additional on lasix Electrolytes: stable Nutrition: low protein, low sodium DVT prophylaxis: oob, ambulation Dispo: discharge to home-pt does not want to go to [facility] Code(s): Z29.9 - ENCOUNTER FOR PROPHYLACTIC MEASURES, UNSPECIFIED Minutes to complete discharge: 45 Discharge Summary Problems reviewed: Yes Reason For Visit: ELEVATED BRAIN NATRIURETIC PEPTIDE (BNP) ALCOHOL D Current Active Problems Alcohol withdrawal (Acute) Alcoholic hepatitis (Acute) Dilated cardiomyopathy secondary to alcohol (Acute) Elevated INR (international normalized ratio) (Acute) Elevated LFTs (Acute) Elevated brain natriuretic peptide (BNP) level (Acute) Jaundice (Acute) Left ventricular dysfunction (Acute) Liver failure without hepatic coma (Acute) Occult blood in stools (Acute) Prophylactic measure (Acute) Thrombocytopenia (Acute) Alcohol dependence with uncomplicated withdrawal (Chronic) Atrial fibrillation with rapid ventricular response (Chronic) Hospital Course: COURSE: Date of Admission:09/24/19 Date of Discharge: 10/02/19 Problem List - Problems (1) Alcohol withdrawal Assessment/Plan: completed detox c/w thiamine, folate, mvi at home no sign of withdrawal Code(s): F10.239 - ALCOHOL DEPENDENCE WITH WITHDRAWAL, UNSPECIFIED (2) Elevated INR (international normalized ratio) Assessment/Plan: INR trended down to 1.47 xarelto on hold follow with home cardiologiston when to restart xarelto Code(s): R79.1 - ABNORMAL COAGULATION PROFILE (3) Elevated LFTs Assessment/Plan: completed solucortef. no futher steroids as outpatient no ascites seen on US avoid hepatotioxic agents hepatatis B naive.1st dose of HBV vaccine given. Instructions on 2 follow up doses given to patient Code(s): R94.5 - ABNORMAL RESULTS OF LIVER FUNCTION STUDIES (4) Elevated brain natriuretic peptide (BNP) level Assessment/Plan: elevated on admission c/w lasix 40mg daily at home daily weights Code(s): R79.89 - OTHER SPECIFIED ABNORMAL FINDINGS OF BLOOD CHEMISTRY (5) Left ventricular dysfunction Assessment/Plan: Severe LV dysfunction with Heart failure and elevated BNP. tachycardia most likelt related to alcoholic cardiomyopathy c/w lasix follow with multi operation machine operator when to restart ALEKSNADRA Code(s): I51.9 - HEART DISEASE, UNSPECIFIED (6) Thrombocytopenia Assessment/Plan: Plt 109 today, no s/s of bleeding continue to monitor Code(s): D69.6 - THROMBOCYTOPENIA, UNSPECIFIED (7) Alcohol-induced anxiety disorder Assessment/Plan: Code(s): F10.980 - ALCOHOL USE, UNSP WITH ALCOHOL-INDUCED ANXIETY DISORDER (8) Atrial fibrillation Assessment/Plan: rate controlled now c/w metoprolol succinate 150mg Code(s): I48.91 - UNSPECIFIED ATRIAL FIBRILLATION Qualifiers: Atrial fibrillation type: unspecified Qualified Code(s): I48.91 - Unspecified atrial fibrillation (9) Prophylactic measure Assessment/Plan: FEN Fluids: no additional on lasix Electrolytes: stable Nutrition: low protein, low sodium DVT prophylaxis: oob, ambulation Dispo: discharge to home-pt does not want to go to [facility] Condition: Improved - Instructions Diet, Activity, Other Instructions: DISCHARGE YOUR VISIT You were sent to the ED from [facility] in rapid atrial fibrillation (a irregular heart rhythm). Your heart rate was controlled with a beta juan ramon called Metoprolol (Toprol) You were seen by a multi operation machine operator and an echocardiogram was done that showed decreased function to you left and right ventricles. You were also seen by a GI doctor and your liver was found to be cirrhotic. You were started on steroids and the dose was slowly decreased. It is imperative that you stop all consumption of alcohol. You were given ativan to help you detox from alcohol. MEDICATIONS Please continue to take your home medications as prescribed. There was some changes: Metoprolol -Toprol XL was increased to 150mg DO NOT TAKE Xarelto. Continue: Folic acid (folate) Lactulose Thiamine Multi vitamin DIET Continue your home diet, low salt ADDITIONAL CARE You were given the vaccine for Hepatatis B on 10/01. You need to go to your primary provider for the 2nd dose on 10/31 and the 3rd dose on 02/28. Schedule and appoint Please make an appointment to see your primary care provider, 2 weeks from today. ADDITIONAL INFORMATION Please call 911 or come directly to the emergency department if you experience unusual headache, vision change, shortness of breath, chest pain, numbness, tingling, loss of alertness/awareness, loss of function, unusual bleeding or any alarming symptoms. Thank you for allowing me to care for you. Ramón Riojas, DARLENEP, [facility] [phone] Disposition: HOME - Home Medications Comprehensive Discharge Medication List: Ambulatory Orders Buspirone HCl [Buspar -] 10 mg PO DAILY #30 tablet 08/07/17 Escitalopram Oxalate [Lexapro -] 20 mg PO DAILY #30 tablet 08/07/17 Folic Acid - 1 mg PO DAILY #30 tablet 10/01/19 Lactulose (Oral Use) [Cephulac -] 20 gm PO TID #2 bottle 10/01/19 Metoprolol Succinate [Toprol XL -] 150 mg PO DAILY #30 tab.sr.24h 10/01/19 Pantoprazole Sodium [Protonix -] 40 mg PO BID #30 tablet.ec 10/01/19 Thiamine HCl [Vitamin B1 -] 100 mg PO DAILY #30 tablet 10/01/19 Prescription Drug Monitoring Program (I-STOP) results: I-STOP not reviewed Problem List - Problems (1) Alcohol withdrawal Code(s): F10.239 - ALCOHOL DEPENDENCE WITH WITHDRAWAL, UNSPECIFIED (2) Elevated INR (international normalized ratio) Code(s): R79.1 - ABNORMAL COAGULATION PROFILE (3) Elevated LFTs Code(s): R94.5 - ABNORMAL RESULTS OF LIVER FUNCTION STUDIES (4) Elevated brain natriuretic peptide (BNP) level Code(s): R79.89 - OTHER SPECIFIED ABNORMAL FINDINGS OF BLOOD CHEMISTRY (5) Left ventricular dysfunction Code(s): I51.9 - HEART DISEASE, UNSPECIFIED (6) Thrombocytopenia Code(s): D69.6 - THROMBOCYTOPENIA, UNSPECIFIED (7) Alcohol-induced anxiety disorder Code(s): F10.980 - ALCOHOL USE, UNSP WITH ALCOHOL-INDUCED ANXIETY DISORDER (8) Atrial fibrillation Code(s): I48.91 - UNSPECIFIED ATRIAL FIBRILLATION Qualifiers: Atrial fibrillation type: unspecified Qualified Code(s): I48.91 - Unspecified atrial fibrillation (9) Prophylactic measure Code(s): Z29.9 - ENCOUNTER FOR PROPHYLACTIC MEASURES, UNSPECIFIED This patient is new to me today: No Emergency Visit: Yes ED Registration Date: 09/24/19 Care time: The patient presented to the Emergency Department on the above date and was hospitalized for further evaluation of their emergent condition. Critical Care patient: No - Discharge Referral Referred to [facility] No
--- NOTE | 2019-10-02 15:00 | PN ---
Progress Note, Physician Chief Complaint: None History of Present Illness: 54yo man alcoholic with ho of chronic a-fib (on xarelto and metoprolol). Presented for detox. Did not take his medications for at least a month. Noted to be in rapid Afib and new onset systolic heart failure ECG with Afib RVR and incomplete RBBB. No ischemic changes. Volume overloaded - Current Medication List Current Medications: Active Medications Folic Acid (Folic Acid -) 1 mg PO DAILY [facility] Last Admin: 10/02/19 09:50 Dose: 1 mg Furosemide (Lasix -) 40 mg PO DAILY [facility] Lactulose (Cephulac (Oral Use)) 20 gm PO TID [facility] Last Admin: 10/02/19 05:52 Dose: 20 gm Melatonin (Melatonin) 5 mg PO HS PRN PRN Reason: INSOMNIA Last Admin: 10/01/19 21:37 Dose: 5 mg Metoprolol Succinate (Toprol Xl -) 150 mg PO DAILY [facility] Last Admin: 10/02/19 09:50 Dose: 150 mg Thiamine HCl (Vitamin B1 -) 100 mg PO DAILY [facility] Last Admin: 10/02/19 09:50 Dose: 100 mg - Objective Vital Signs: Vital Signs Temperature 97.4 F L 10/02/19 10:51 Pulse Rate 97 H 10/02/19 10:51 Respiratory Rate 18 10/02/19 10:51 Blood Pressure 128/72 10/02/19 10:51 O2 Sat by Pulse Oximetry (%) 98 10/02/19 08:51 Constitutional: Yes: No Distress Neck: Yes: Supple Cardiovascular: Yes: Pulse Irregular, S1, S2 Respiratory: Yes: CTA Bilaterally Gastrointestinal: Yes: Soft Edema: LLE: Trace, RLE: Trace Labs: CBC, BMP 10/02/19 06:35 10/02/19 06:35 INR, PTT INR 1.28 (0.83-1.09) H 10/02/19 06:35 Problem List - Problems (1) Dilated cardiomyopathy secondary to alcohol Code(s): I42.6 - ALCOHOLIC CARDIOMYOPATHY (2) Atrial fibrillation with rapid ventricular response Code(s): I48.91 - UNSPECIFIED ATRIAL FIBRILLATION Assessment/Plan 54yo man alcoholic with ho of chronic a-fib (on xarelto and metoprolol). Presented for detox. Did not take his medications for at least a month. Noted to be in rapid Afib and new onset systolic heart failure ECG with Afib RVR and incomplete RBBB. No ischemic changes. He is still significantly volume overloaded. 1. Afib Continue Metoprolol XL 150mg QD. Consider NOAC if no contraindication Rates adequate today 2. 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 Pt well perfused and warm. Hold ACEI as bp will not allow yet Follow I/O, lytes, and weight patient daily. 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
[2019-10-03] MEDS ORDERED: FUROSEMIDE 40 MG TABLET (FP) PO SCH (10:00)
== END 2019-10-02 14:50 | disposition home or self-care (01) | DRG 205 ==
LOC: JER 12:41 → J4W 15:11
PROVIDERS: ADMIT Internal Medicine; ATTEND Nurse Practitioner Acute Care
PROC: HZ2ZZZZ Detoxification Services for Substance Abuse Treatment (ICD-10-PCS; principal; 2019-09-24)
DX: I42.6 Alcoholic cardiomyopathy (principal); K21.9 Gastro-esophageal reflux disease without esophagitis; R56.9 Unspecified convulsions; F10.230 Alcohol dependence with withdrawal, uncomplicated; R00.0 Tachycardia, unspecified; I45.10 Unspecified right bundle-branch block; R79.89 Other specified abnormal findings of blood chemistry; D69.6 Thrombocytopenia, unspecified; R94.5 Abnormal results of liver function studies; I48.20 Chronic atrial fibrillation, unspecified; K76.0 Fatty (change of) liver, not elsewhere classified; K70.10 Alcoholic hepatitis without ascites; K70.30 Alcoholic cirrhosis of liver without ascites; R19.5 Other fecal abnormalities; I11.0 Hypertensive heart disease with heart failure; I50.20 Unspecified systolic (congestive) heart failure; Z91.14 Patient's other noncompliance with medication regimen
CPT/HCPCS: 36415; 71045-TC-FY; 76700-TC; 76705-TC; 80053; 80061; 80307; 82105; 82140; 82248; 82550; 82553; 82728; 83036; 83516; 83540; 83550; 83721; 83735; 83880; 84100; 84443; 84484; 85025; 85610; 86038; 86704; 86706; 86707; 86708; 86709; 86803; 87340; 93005; 93010; 93306-TC; 99285-25

== ENCOUNTER 2020-10-08 18:06 | Inpatient (IN) | payer OTHER ==
[2020-10-08 20:36] VITALS: BMI 29.0
[2020-10-08] MEDS ORDERED: ACETAMINOPHEN 325 MG TABLET (FP) PO PRN ×2 (22:34)
[2020-10-08] MEDS ORDERED: NICOTINE POLACRILEX 2 MG GUM BUC PRN (22:34)
[2020-10-08] MEDS ORDERED: BISMUTH SUBSALICYLATE 524 MG/30 ML UD PO PRN (22:34)
[2020-10-08] MEDS ORDERED: MAGNESIUM HYDROX 2400MG/30ML ORAL SUSPENSION 30 ML CUP PO PRN (22:34)
[2020-10-08] MEDS ORDERED: LORazepam 1 MG TABLET PO PRN (22:34)
[2020-10-08] MEDS ORDERED: IBUPROFEN 400 MG TABLET (FP) PO PRN (22:34)
[2020-10-08] MEDS ORDERED: MENTHOL/PHENOL 1 EACH UD MM PRN (22:34)
[2020-10-08] MEDS ORDERED: MAGNESIUM CITRATE 300 ML BOTTLE PO PRN (22:34)
[2020-10-08] MEDS ORDERED: MAG HYDROX/AL HYDROX/SIMETH 30 ML UNIT-DOSE CUP PO PRN (22:34)
[2020-10-08] MEDS ORDERED: METHOCARBAMOL 500 MG TABLET PO PRN (22:34)
[2020-10-08] MEDS ORDERED: ONDANSETRON *ODT* 4 MG TABLET SL PRN (22:34)
[2020-10-08] MEDS: LORazepam 2 MG TABLET PO SCH (23:52)
[2020-10-09] MEDS: LORazepam 2 MG TABLET PO SCH ×3 (06:02→19:46)
[2020-10-09 07:48] VITALS: BP 124/75
[2020-10-09] MEDS ORDERED: NICOTINE 14 MG/24 HOURS TOPICAL PATCH TD SCH (10:00)
[2020-10-09] MEDS ORDERED: PRENATAL VITAMINS W/ FOLIC ACID TABLET (FP) PO SCH (10:00)
[2020-10-09 10:41] LABS: HEMATOCRIT 40.3 % (35.4-49); HEMOGLOBIN 14.2 GM/dL (11.7-16.9); MCH 33.8 pg (25.7-33.7); MCHC 35.4 g/dl (32.0-35.9); MEAN CELL VOLUME 95.6 fl (80-96); RBC 4.21 M/mm3 (4.00-5.60); RDW 14.9 % (11.9-15.9); WHITE BLOOD COUNT 5.6 K/mm3 (4.0-10.0)
[2020-10-09 10:56] LABS: ALBUMIN 3.6 g/dl (3.4-5.0); BLOOD UREA NITROGEN 33.3 mg/dL (7-18)
[2020-10-09 10:59] LABS: CREATININE 1.3 mg/dL (0.55-1.3)
[2020-10-09 11:01] LABS: BILIRUBIN,TOTAL 1.6 mg/dL (0.2-1); TOT PROT 7.1 g/dl (6.4-8.2)
[2020-10-09 11:30] LABS: POTASSIUM 2.3 mmol/L (3.5-5.1)
[2020-10-09 11:46] VITALS: PULSE 78; TEMP 97.1
[2020-10-09] MEDS ORDERED: MELATONIN 5 MG TABLETS PO SCH (22:00)
[2020-10-09] MEDS ORDERED: THIAMINE HCL 100 MG TABLET (FP) PO SCH (22:00)
[2020-10-10] MEDS ORDERED: LORazepam 1 MG TABLET PO SCH (05:00)
[2020-10-11] MEDS ORDERED: LORazepam 0.5 MG TABLET PO PRN
[2020-10-11] MEDS ORDERED: LORazepam 0.5 MG TABLET PO SCH (05:00)
[2020-10-12] MEDS ORDERED: LORazepam 0.5 MG TABLET PO ONE (05:00)
== END 2020-10-09 22:00 | disposition short-term general hospital (02) | DRG 775 ==
LOC: YASAS 18:06 → Y6N 22:40
PROVIDERS: ADMIT Allergy & Immunology; ATTEND Allergy & Immunology
PROC: HZ2ZZZZ Detoxification Services for Substance Abuse Treatment (ICD-10-PCS; principal; 2020-10-08)
DX: F10.230 Alcohol dependence with withdrawal, uncomplicated (principal); F41.9 Anxiety disorder, unspecified; F32.9 Major depressive disorder, single episode, unspecified; I48.91 Unspecified atrial fibrillation; I11.0 Hypertensive heart disease with heart failure; I50.9 Heart failure, unspecified; E87.6 Hypokalemia; G40.909 Epilepsy, unspecified, not intractable, without status epilepticus; K21.9 Gastro-esophageal reflux disease without esophagitis; K70.10 Alcoholic hepatitis without ascites; M10.9 Gout, unspecified; R79.89 Other specified abnormal findings of blood chemistry; Z79.01 Long term (current) use of anticoagulants
CPT/HCPCS: 36415; 80053; 85027; 86780; 93005; 93010; C9803; U0003

== ENCOUNTER 2020-10-09 13:22 | Observation (INO) | payer OTHER ==
[2020-10-09] MEDS ORDERED: SODIUM CHLORIDE 0.9% 500 ML INFUS.BAG IV ONE (14:08)
[2020-10-09] MEDS ORDERED: KCL 10 MEQ IVPB 10 MEQ/100 ML INFUS.BAG IVPB SCH (14:15)
[2020-10-09 14:25] LABS: BASO % 1.3 % (0-2.0); EOS % 1.2 % (0-4.5); HEMATOCRIT 38.9 % (35.4-49); HEMOGLOBIN 13.8 GM/dL (11.7-16.9); LYMPH % 25.8 % (8-40); MCH 33.8 pg (25.7-33.7); MCHC 35.4 g/dl (32.0-35.9); MEAN CELL VOLUME 95.4 fl (80-96); MEAN PLT VOLUME 9.1 fl (7.5-11.1); MONO % 10.8 % (3.8-10.2); NEUT % 60.9 % (42.8-82.8); RBC 4.07 M/mm3 (4.00-5.60); RDW 14.6 % (11.9-15.9); WHITE BLOOD COUNT 6.6 K/mm3 (4.0-10.0)
[2020-10-09 14:33] LABS: ALBUMIN 3.4 g/dl (3.4-5.0); BLOOD UREA NITROGEN 32.3 mg/dL (7-18); MAGNESIUM 1.6 mg/dL (1.8-2.4)
[2020-10-09 14:36] LABS: CREATININE 1.2 mg/dL (0.55-1.3)
[2020-10-09 14:38] LABS: BILIRUBIN,TOTAL 1.1 mg/dL (0.2-1)
[2020-10-09] MEDS ORDERED: MAGNESIUM SULF 50% (8.12 MEQ/2 ML-1 GM VIAL) IVPB ONE (14:38)
[2020-10-09 14:45] LABS: POTASSIUM 2.7 mmol/L (3.5-5.1)
[2020-10-09] MEDS ORDERED: POTASSIUM CHLORIDE TABS 20 MEQ TABLET.ER (FP) PO ONE ×2 (14:57→16:16)
[2020-10-09] MEDS ORDERED: MAGNESIUM SULF 50% (8.12 MEQ/2 ML-1 GM VIAL) ONE (15:37)
[2020-10-09 18:48] LABS: CALCIUM 7.2 mg/dL (8.5-10.1)
[2020-10-09 18:49] LABS: BLOOD UREA NITROGEN 25.3 mg/dL (7-18)
[2020-10-09 18:52] LABS: CREATININE 0.9 mg/dL (0.55-1.3)
[2020-10-09 19:44] LABS: MAGNESIUM 1.6 mg/dL (1.8-2.4)
[2020-10-09 19:53] LABS: POTASSIUM 2.7 mmol/L (3.5-5.1)
[2020-10-09] MEDS ORDERED: POTASSIUM CHLORIDE ORAL LIQUID 20 MEQ/15 ML PO ONE (20:24)
[2020-10-09] MEDS ORDERED: POTASSIUM CHLORIDE ORAL LIQUID 20 MEQ/15 ML ONE (21:51)
[2020-10-09] MEDS ORDERED: KCL 10 MEQ IVPB 30 MEQ/300 ML INFUS.BAG IVPB ONE (21:52)
[2020-10-09] MEDS ORDERED: POTASSIUM CHLORIDE IV SCH ×3 (22:00→22:07)
[2020-10-09] MEDS ORDERED: PROCHLORPERAZINE MALEATE 5 MG TABLET PO PRN (22:00)
[2020-10-09] MEDS ORDERED: LACTATED RINGERS IV SCH ×3 (22:00→22:07)
[2020-10-09] MEDS ORDERED: LORazepam 1 MG TABLET PO PRN (22:01)
[2020-10-09] MEDS: KCL 10 MEQ IVPB 10 MEQ/100 ML INFUS.BAG IVPB SCH (22:25)
[2020-10-09] MEDS ORDERED: LORazepam 1 MG TABLET ONE (22:28)
[2020-10-09] MEDS ORDERED: LORazepam 2 MG TABLET PO SCH (23:00)
[2020-10-10] MEDS: KCL 10 MEQ IVPB 10 MEQ/100 ML INFUS.BAG IVPB SCH ×2 (00:06→02:15)
[2020-10-10] MEDS ORDERED: MAG HYDROX/AL HYDROX/SIMETH 30 ML UNIT-DOSE CUP PO PRN (03:44)
[2020-10-10] MEDS: LORazepam 1 MG TABLET PO SCH ×4 (04:40→22:09)
[2020-10-10] MEDS: THIAMINE HCL 100 MG TABLET (FP) PO SCH (09:42)
[2020-10-10] MEDS: FOLIC ACID 1 MG TABLET (FP) PO SCH (09:42)
[2020-10-10] MEDS: METOPROLOL TARTRATE 50 MG TABLET (FP) PO SCH ×2 (09:42→22:09)
[2020-10-10] MEDS: PANTOPRAZOLE 40 MG TABLET PO SCH (09:42)
[2020-10-10] MEDS: MULTIVITAMINS (DAILY MVI) TABLET (FP) PO SCH (09:43)
[2020-10-10] MEDS ORDERED: ENOXAPARIN NA (PORCINE) 40 MG/0.4 ML DISP.SYRIN SQ SCH (10:00)
[2020-10-10] MEDS ORDERED: PANTOPRAZOLE SODIUM 40 MG VIAL IVPUSH SCH (10:00)
[2020-10-10 12:17] LABS: BASO % 1.3 % (0-2.0); EOS % 1.7 % (0-4.5); HEMATOCRIT 35.3 % (35.4-49); HEMOGLOBIN 12.1 GM/dL (11.7-16.9); LYMPH % 22.3 % (8-40); MCH 33.6 pg (25.7-33.7); MCHC 34.2 g/dl (32.0-35.9); MEAN CELL VOLUME 98.1 fl (80-96); MEAN PLT VOLUME 10.7 fl (7.5-11.1); MONO % 10.7 % (3.8-10.2); RDW 14.7 % (11.9-15.9); WHITE BLOOD COUNT 4.4 K/mm3 (4.0-10.0)
[2020-10-10 12:33] LABS: POTASSIUM 3.6 mmol/L (3.5-5.1)
[2020-10-10 12:39] LABS: ALBUMIN 3.1 g/dl (3.4-5.0); CALCIUM 8.5 mg/dL (8.5-10.1); MAGNESIUM 1.8 mg/dL (1.8-2.4)
[2020-10-10 12:42] LABS: CREATININE 0.6 mg/dL (0.55-1.3)
[2020-10-10 12:43] LABS: PHOSPHOROUS 2.1 mg/dL (2.5-4.9)
[2020-10-10 12:44] LABS: BILIRUBIN,TOTAL 1.2 mg/dL (0.2-1); TOT PROT 6.2 g/dl (6.4-8.2)
[2020-10-10 14:39] LABS: PLATELET COUNT 6 K/MM3 (134-434)
[2020-10-10] MEDS ORDERED: MAGNESIUM SULF 50% (8.12 MEQ/2 ML-1 GM VIAL) IVPB ONE (14:45)
[2020-10-10] MEDS ORDERED: POTASSIUM PHOSPHATE 30 MM in SODIUM CHLORIDE 500 ML IVPB ONE (15:00)
[2020-10-10 16:44] LABS: HEMATOCRIT 35.5 % (35.4-49); HEMOGLOBIN 12.2 GM/dL (11.7-16.9); MCH 33.2 pg (25.7-33.7); MCHC 34.3 g/dl (32.0-35.9); MEAN CELL VOLUME 96.9 fl (80-96); MEAN PLT VOLUME 8.4 fl (7.5-11.1); RBC 3.66 M/mm3 (4.00-5.60); RDW 14.7 % (11.9-15.9); WHITE BLOOD COUNT 4.8 K/mm3 (4.0-10.0)
[2020-10-10 16:59] LABS: INR 0.96 (0.83-1.09); PROTHROMBIN TIME (PATIENT) 11.6 SEC (9.7-13.0)
[2020-10-11] MEDS: LORazepam 1 MG TABLET PO SCH ×4 (05:23→22:35)
[2020-10-11 09:44] LABS: BASO % 1.3 % (0-2.0); HEMATOCRIT 36.6 % (35.4-49); HEMOGLOBIN 12.5 GM/dL (11.7-16.9); LYMPH % 23.2 % (8-40); MCH 33.3 pg (25.7-33.7); MEAN CELL VOLUME 97.8 fl (80-96); MONO % 10.5 % (3.8-10.2); RBC 3.75 M/mm3 (4.00-5.60)
[2020-10-11 09:54] LABS: WHITE BLOOD COUNT 5.9 K/mm3 (4.0-10.0)
[2020-10-11 09:59] LABS: POTASSIUM 3.8 mmol/L (3.5-5.1)
[2020-10-11] MEDS ORDERED: ENOXAPARIN NA (PORCINE) 40 MG/0.4 ML DISP.SYRIN SQ SCH (10:00)
[2020-10-11 10:44] LABS: ALBUMIN 3.3 g/dl (3.4-5.0); BLOOD UREA NITROGEN 12.2 mg/dL (7-18); CALCIUM 8.4 mg/dL (8.5-10.1)
[2020-10-11 10:45] LABS: MAGNESIUM 1.7 mg/dL (1.8-2.4)
[2020-10-11 10:49] LABS: TOT PROT 6.6 g/dl (6.4-8.2)
[2020-10-11 10:50] LABS: CREATININE 0.7 mg/dL (0.55-1.3); PHOSPHOROUS 2.4 mg/dL (2.5-4.9)
[2020-10-11] MEDS: MULTIVITAMINS (DAILY MVI) TABLET (FP) PO SCH (11:02)
[2020-10-11] MEDS: PANTOPRAZOLE 40 MG TABLET PO SCH (11:02)
[2020-10-11] MEDS: FOLIC ACID 1 MG TABLET (FP) PO SCH (11:02)
[2020-10-11] MEDS: THIAMINE HCL 100 MG TABLET (FP) PO SCH (11:02)
[2020-10-11] MEDS: METOPROLOL TARTRATE 50 MG TABLET (FP) PO SCH ×2 (11:03→22:01)
[2020-10-11 11:35] LABS: INR 0.95 (0.83-1.09); PROTHROMBIN TIME (PATIENT) 11.7 SEC (9.7-13.0)
[2020-10-11] MEDS ORDERED: NAPH,MB-DB/K PH,MBDB POWDER PACKET PO ONE (12:30)
[2020-10-11] MEDS ORDERED: MAGNESIUM 1GM/D5W 100ML - 100 ML IVPB IVPB ONE (12:30)
[2020-10-11 15:30] VITALS: BMI 29.4
[2020-10-12] MEDS ORDERED: LORazepam 0.5 MG TABLET PO PRN
[2020-10-12] MEDS: LORazepam 0.5 MG TABLET PO SCH ×3 (04:46→16:46)
[2020-10-12] MEDS: MULTIVITAMINS (DAILY MVI) TABLET (FP) PO SCH (09:00)
[2020-10-12] MEDS: METOPROLOL TARTRATE 50 MG TABLET (FP) PO SCH (09:00)
[2020-10-12] MEDS: THIAMINE HCL 100 MG TABLET (FP) PO SCH (09:00)
[2020-10-12] MEDS: FOLIC ACID 1 MG TABLET (FP) PO SCH (09:00)
[2020-10-12] MEDS: PANTOPRAZOLE 40 MG TABLET PO SCH (09:01)
[2020-10-12 09:43] LABS: POTASSIUM 4.6 mmol/L (3.5-5.1)
[2020-10-12 09:55] LABS: BLOOD UREA NITROGEN 18.3 mg/dL (7-18); CALCIUM 9.1 mg/dL (8.5-10.1); MAGNESIUM 1.7 mg/dL (1.8-2.4)
[2020-10-12 09:56] LABS: ALBUMIN 3.5 g/dl (3.4-5.0); BASO % 1.1 % (0-2.0); BILIRUBIN,TOTAL 0.6 mg/dL (0.2-1); EOS % 2.3 % (0-4.5); HEMATOCRIT 41.1 % (35.4-49); HEMOGLOBIN 13.9 GM/dL (11.7-16.9); LYMPH % 26.9 % (8-40); MCH 33.3 pg (25.7-33.7); MCHC 33.9 g/dl (32.0-35.9); MEAN CELL VOLUME 98.3 fl (80-96); MEAN PLT VOLUME 8.3 fl (7.5-11.1); MONO % 13.6 % (3.8-10.2); NEUT % 56.1 % (42.8-82.8); RBC 4.18 M/mm3 (4.00-5.60); RDW 14.6 % (11.9-15.9); WHITE BLOOD COUNT 5.8 K/mm3 (4.0-10.0)
[2020-10-12 09:59] LABS: CREATININE 0.7 mg/dL (0.55-1.3); PHOSPHOROUS 3.6 mg/dL (2.5-4.9)
[2020-10-12 10:00] LABS: TOT PROT 7.4 g/dl (6.4-8.2)
[2020-10-12] MEDS ORDERED: ENOXAPARIN NA (PORCINE) 40 MG/0.4 ML DISP.SYRIN SQ SCH (10:00)
[2020-10-12 11:41] LABS: PLATELET ESTIMATE DECREASED
[2020-10-12] MEDS ORDERED: MAGNESIUM SULF 50% (8.12 MEQ/2 ML-1 GM VIAL) IVPB ONE (15:30)
[2020-10-12 20:15] VITALS: BP 129/83; PULSE 77; TEMP 98.6
[2020-10-13] MEDS ORDERED: LORazepam 0.5 MG TABLET PO ONE (05:00)
== END 2020-10-12 20:45 | disposition other institution (70) ==
LOC: JER 13:22 → JERBED 20:00 → J5S 10-10 02:55
PROVIDERS: ADMIT Hospitalist
PROC: 3E023GC Introduction of Other Therapeutic Substance into Muscle, Percutaneous Approach (ICD-10-PCS; principal; 2020-10-09)
PROC: 3E0234Z Introduction of Serum, Toxoid and Vaccine into Muscle, Percutaneous Approach (ICD-10-PCS; 2020-10-09)
PROC: 3E0337Z Introduction of Electrolytic and Water Balance Substance into Peripheral Vein, Percutaneous Approach (ICD-10-PCS; 2020-10-09)
PROC: 3E033GC Introduction of Other Therapeutic Substance into Peripheral Vein, Percutaneous Approach (ICD-10-PCS; 2020-10-09)
DX: F10.239 Alcohol dependence with withdrawal, unspecified (principal); F41.8 Other specified anxiety disorders; I11.0 Hypertensive heart disease with heart failure; E87.6 Hypokalemia; R79.89 Other specified abnormal findings of blood chemistry; I48.91 Unspecified atrial fibrillation; Z29.9 Encounter for prophylactic measures, unspecified; I10 Essential (primary) hypertension; K21.9 Gastro-esophageal reflux disease without esophagitis
CPT/HCPCS: 36415; 71045-TC-FY; 80048; 80053; 80074; 82607; 82746; 83735; 84100; 84439; 84443; 85025; 85027; 85032; 85610; 86850; 86900; 86901; 93005; 93010; 96365; 96367; 96372; 96374; 96375; 96376; 97116-GP; 97162-GP; 99285-25; C9803; G0378; U0003

== ENCOUNTER 2020-10-12 21:15 | Inpatient (IN) | payer OTHER ==
[2020-10-12 22:11] VITALS: BMI 30.3
[2020-10-12] MEDS ORDERED: LOPERAMIDE HCL 2 MG CAPSULE PO PRN (22:14)
[2020-10-12] MEDS ORDERED: NICOTINE POLACRILEX 2 MG GUM BC PRN (22:14)
[2020-10-12] MEDS ORDERED: MAG HYDROX/AL HYDROX/SIMETH 30 ML UNIT-DOSE CUP PO PRN (22:14)
[2020-10-12] MEDS ORDERED: MAGNESIUM CITRATE 300 ML BOTTLE PO PRN (22:14)
[2020-10-12] MEDS ORDERED: MAGNESIUM HYDROX 2400MG/30ML ORAL SUSPENSION 30 ML CUP PO PRN (22:14)
[2020-10-12] MEDS ORDERED: guaiFENesin 200 MG/10 ML 10 ML UNIT-DOSE CUPS PO PRN (22:14)
[2020-10-12] MEDS ORDERED: P-EPHED 60MG/TRIPROLIDI 2.5MG TABLET PO PRN (22:14)
[2020-10-12] MEDS: MELATONIN 5 MG TABLETS PO SCH (22:49)
[2020-10-13] MEDS: METOPROLOL TARTRATE 25 MG TABLET (FP) PO SCH ×2 (09:46→21:34)
[2020-10-13] MEDS: PRENATAL VITAMINS W/ FOLIC ACID TABLET (FP) PO SCH (09:46)
[2020-10-13] MEDS: PANTOPRAZOLE 40 MG TABLET PO SCH (09:46)
[2020-10-13] MEDS: NICOTINE 14 MG/24 HOURS TOPICAL PATCH TD SCH (09:47)
[2020-10-13] MEDS: ACETAMINOPHEN 325 MG TABLET (FP) PO PRN ×2 (09:48→21:34)
[2020-10-13] MEDS: THIAMINE HCL 100 MG TABLET (FP) PO SCH (21:34)
[2020-10-13] MEDS: MELATONIN 5 MG TABLETS PO SCH (21:34)
[2020-10-14] MEDS: PRENATAL VITAMINS W/ FOLIC ACID TABLET (FP) PO SCH (09:34)
[2020-10-14] MEDS: METOPROLOL TARTRATE 25 MG TABLET (FP) PO SCH ×2 (09:34→21:33)
[2020-10-14] MEDS: PANTOPRAZOLE 40 MG TABLET PO SCH (09:35)
[2020-10-14] MEDS: NICOTINE 14 MG/24 HOURS TOPICAL PATCH TD SCH (09:35)
[2020-10-14] MEDS ORDERED: COLLOIDAL OATMEAL 1 BAR EACH TP PRN (10:36)
[2020-10-14 14:19] LABS: URINE APPEARANCE CLEAR; URINE BILIRUBIN NEGATIVE (NEGATIVE); URINE COLOR YELLOW; URINE GLUCOSE (UA) NEGATIVE (NEGATIVE); URINE KETONE NEGATIVE (NEGATIVE); URINE LEUK ESTERASE NEGATIVE (NEGATIVE); URINE NITRITE NEGATIVE (NEGATIVE); URINE PROTEIN NEGATIVE (NEGATIVE); URINE UROBILINOGEN 0.2 mg/dL (0.2-1.0)
[2020-10-14] MEDS: MELATONIN 5 MG TABLETS PO SCH (21:33)
[2020-10-14] MEDS: THIAMINE HCL 100 MG TABLET (FP) PO SCH (21:33)
[2020-10-15] MEDS: PANTOPRAZOLE 40 MG TABLET PO SCH (09:39)
[2020-10-15] MEDS: METOPROLOL TARTRATE 25 MG TABLET (FP) PO SCH ×2 (09:39→21:19)
[2020-10-15] MEDS: NICOTINE 14 MG/24 HOURS TOPICAL PATCH TD SCH (09:39)
[2020-10-15] MEDS: MULTIVITAMINS (DAILY MVI) TABLET (FP) PO SCH (11:42)
[2020-10-15 17:58] LABS: POTASSIUM 4.2 mmol/L (3.5-5.1)
[2020-10-15 18:02] LABS: ALBUMIN 3.6 g/dl (3.4-5.0); BLOOD UREA NITROGEN 14.7 mg/dL (7-18); CALCIUM 8.8 mg/dL (8.5-10.1); MAGNESIUM 1.5 mg/dL (1.8-2.4)
[2020-10-15 18:03] LABS: HEMATOCRIT 39.1 % (35.4-49); HEMOGLOBIN 13.3 GM/dL (11.7-16.9); MCH 33.6 pg (25.7-33.7); MCHC 33.9 g/dl (32.0-35.9); MEAN CELL VOLUME 99.1 fl (80-96); MEAN PLT VOLUME 8.7 fl (7.5-11.1); RBC 3.94 M/mm3 (4.00-5.60); RDW 15.4 % (11.9-15.9); WHITE BLOOD COUNT 4.9 K/mm3 (4.0-10.0)
[2020-10-15 18:05] LABS: CREATININE 0.9 mg/dL (0.55-1.3)
[2020-10-15 18:07] LABS: BILIRUBIN,TOTAL 0.7 mg/dL (0.2-1); TOT PROT 7.2 g/dl (6.4-8.2)
[2020-10-15 18:13] LABS: INR 1.03 (0.83-1.09); PROTHROMBIN TIME (PATIENT) 12.6 SEC (9.7-13.0)
[2020-10-15] MEDS: MELATONIN 5 MG TABLETS PO SCH (21:19)
[2020-10-15] MEDS: THIAMINE HCL 100 MG TABLET (FP) PO SCH (21:19)
[2020-10-15] MEDS: IBUPROFEN 400 MG TABLET (FP) PO PRN (21:20)
[2020-10-16] MEDS: MULTIVITAMINS (DAILY MVI) TABLET (FP) PO SCH (09:36)
[2020-10-16] MEDS: METOPROLOL TARTRATE 25 MG TABLET (FP) PO SCH ×2 (09:37→21:25)
[2020-10-16] MEDS: NICOTINE 14 MG/24 HOURS TOPICAL PATCH TD SCH (09:37)
[2020-10-16] MEDS: PANTOPRAZOLE 40 MG TABLET PO SCH (09:37)
[2020-10-16] MEDS: THIAMINE HCL 100 MG TABLET (FP) PO SCH (21:25)
[2020-10-16] MEDS: MELATONIN 5 MG TABLETS PO SCH (21:25)
[2020-10-17] MEDS: MULTIVITAMINS (DAILY MVI) TABLET (FP) PO SCH (09:30)
[2020-10-17] MEDS: METOPROLOL TARTRATE 25 MG TABLET (FP) PO SCH ×2 (09:30→21:19)
[2020-10-17] MEDS: PANTOPRAZOLE 40 MG TABLET PO SCH (09:31)
[2020-10-17] MEDS: NICOTINE 14 MG/24 HOURS TOPICAL PATCH TD SCH (09:31)
[2020-10-17] MEDS: THIAMINE HCL 100 MG TABLET (FP) PO SCH (21:18)
[2020-10-17] MEDS: MELATONIN 5 MG TABLETS PO SCH (21:19)
[2020-10-18] MEDS: PANTOPRAZOLE 40 MG TABLET PO SCH (09:48)
[2020-10-18] MEDS: METOPROLOL TARTRATE 25 MG TABLET (FP) PO SCH ×2 (09:48→21:43)
[2020-10-18] MEDS: MULTIVITAMINS (DAILY MVI) TABLET (FP) PO SCH (09:48)
[2020-10-18] MEDS: NICOTINE 14 MG/24 HOURS TOPICAL PATCH TD SCH (09:49)
[2020-10-18] MEDS: IBUPROFEN 400 MG TABLET (FP) PO PRN (21:43)
[2020-10-18] MEDS: MELATONIN 5 MG TABLETS PO SCH (21:43)
[2020-10-18] MEDS: THIAMINE HCL 100 MG TABLET (FP) PO SCH (21:43)
[2020-10-19] MEDS: METOPROLOL TARTRATE 25 MG TABLET (FP) PO SCH ×2 (09:42→21:19)
[2020-10-19] MEDS: PANTOPRAZOLE 40 MG TABLET PO SCH (09:42)
[2020-10-19] MEDS: MULTIVITAMINS (DAILY MVI) TABLET (FP) PO SCH (09:43)
[2020-10-19] MEDS: NICOTINE 14 MG/24 HOURS TOPICAL PATCH TD SCH (09:43)
[2020-10-19] MEDS: IBUPROFEN 400 MG TABLET (FP) PO PRN (21:18)
[2020-10-19] MEDS: THIAMINE HCL 100 MG TABLET (FP) PO SCH (21:20)
[2020-10-19] MEDS: SUVOREXANT 10 MG TABLET PO PRN (21:20)
[2020-10-19] MEDS: MELATONIN 5 MG TABLETS PO SCH (22:05)
[2020-10-20] MEDS: NICOTINE 14 MG/24 HOURS TOPICAL PATCH TD SCH (09:35)
[2020-10-20] MEDS: MULTIVITAMINS (DAILY MVI) TABLET (FP) PO SCH (09:35)
[2020-10-20] MEDS: PANTOPRAZOLE 40 MG TABLET PO SCH (09:35)
[2020-10-20] MEDS: METOPROLOL TARTRATE 25 MG TABLET (FP) PO SCH ×2 (09:35→21:20)
[2020-10-20] MEDS: IBUPROFEN 400 MG TABLET (FP) PO PRN (19:49)
[2020-10-20] MEDS: SUVOREXANT 10 MG TABLET PO PRN (21:19)
[2020-10-20] MEDS: THIAMINE HCL 100 MG TABLET (FP) PO SCH (21:20)
[2020-10-20] MEDS: MELATONIN 5 MG TABLETS PO SCH (21:30)
[2020-10-21] MEDS: PANTOPRAZOLE 40 MG TABLET PO SCH (09:38)
[2020-10-21] MEDS: METOPROLOL TARTRATE 25 MG TABLET (FP) PO SCH ×2 (09:38→21:19)
[2020-10-21] MEDS: NICOTINE 14 MG/24 HOURS TOPICAL PATCH TD SCH (09:39)
[2020-10-21] MEDS: MULTIVITAMINS (DAILY MVI) TABLET (FP) PO SCH (09:39)
[2020-10-21] MEDS: SUVOREXANT 10 MG TABLET PO PRN (21:18)
[2020-10-21] MEDS: THIAMINE HCL 100 MG TABLET (FP) PO SCH (21:18)
[2020-10-21] MEDS: MELATONIN 5 MG TABLETS PO SCH (21:23)
[2020-10-22] MEDS: METOPROLOL TARTRATE 25 MG TABLET (FP) PO SCH ×2 (09:31→21:49)
[2020-10-22] MEDS: MULTIVITAMINS (DAILY MVI) TABLET (FP) PO SCH (09:31)
[2020-10-22] MEDS: PANTOPRAZOLE 40 MG TABLET PO SCH (09:31)
[2020-10-22] MEDS: NICOTINE 14 MG/24 HOURS TOPICAL PATCH TD SCH (09:31)
[2020-10-22] MEDS: THIAMINE HCL 100 MG TABLET (FP) PO SCH (21:39)
[2020-10-22] MEDS: MELATONIN 5 MG TABLETS PO SCH (21:40)
[2020-10-22] MEDS: SUVOREXANT 10 MG TABLET PO PRN (21:41)
[2020-10-23] MEDS: PANTOPRAZOLE 40 MG TABLET PO SCH (09:36)
[2020-10-23] MEDS: METOPROLOL TARTRATE 25 MG TABLET (FP) PO SCH ×2 (09:36→21:36)
[2020-10-23] MEDS: MULTIVITAMINS (DAILY MVI) TABLET (FP) PO SCH (09:38)
[2020-10-23] MEDS: THIAMINE HCL 100 MG TABLET (FP) PO SCH (21:36)
[2020-10-23] MEDS: MELATONIN 5 MG TABLETS PO SCH (21:36)
[2020-10-23] MEDS: SUVOREXANT 10 MG TABLET PO PRN (21:36)
[2020-10-24] MEDS: PANTOPRAZOLE 40 MG TABLET PO SCH (09:21)
[2020-10-24] MEDS: MULTIVITAMINS (DAILY MVI) TABLET (FP) PO SCH (09:21)
[2020-10-24] MEDS: METOPROLOL TARTRATE 25 MG TABLET (FP) PO SCH ×2 (09:21→21:19)
[2020-10-24] MEDS: MELATONIN 5 MG TABLETS PO SCH (21:19)
[2020-10-24] MEDS: THIAMINE HCL 100 MG TABLET (FP) PO SCH (21:19)
[2020-10-24] MEDS: SUVOREXANT 10 MG TABLET PO PRN (21:19)
[2020-10-24] MEDS: IBUPROFEN 400 MG TABLET (FP) PO PRN (21:20)
[2020-10-25] MEDS: METOPROLOL TARTRATE 25 MG TABLET (FP) PO SCH ×2 (09:43→21:40)
[2020-10-25] MEDS: MULTIVITAMINS (DAILY MVI) TABLET (FP) PO SCH (09:43)
[2020-10-25] MEDS: PANTOPRAZOLE 40 MG TABLET PO SCH (09:44)
[2020-10-25] MEDS: MELATONIN 5 MG TABLETS PO SCH (21:39)
[2020-10-25] MEDS: SUVOREXANT 10 MG TABLET PO PRN (21:39)
[2020-10-25] MEDS: THIAMINE HCL 100 MG TABLET (FP) PO SCH (21:40)
[2020-10-26 06:36] VITALS: BP 115/66; PULSE 67; TEMP 97.5
[2020-10-26] MEDS: METOPROLOL TARTRATE 25 MG TABLET (FP) PO SCH (09:27)
[2020-10-26] MEDS: PANTOPRAZOLE 40 MG TABLET PO SCH (09:28)
[2020-10-26] MEDS: MULTIVITAMINS (DAILY MVI) TABLET (FP) PO SCH (09:28)
== END 2020-10-26 09:55 | disposition home or self-care (01) | DRG 772 ==
LOC: YASAS 21:15 → Y5N 22:10
PROVIDERS: ADMIT Allergy & Immunology; ATTEND Allergy & Immunology
PROC: HZ42ZZZ Group Counseling for Substance Abuse Treatment, Cognitive-Behavioral (ICD-10-PCS; principal; 2020-10-12)
DX: F10.20 Alcohol dependence, uncomplicated (principal); F10.280 Alcohol dependence with alcohol-induced anxiety disorder; F17.210 Nicotine dependence, cigarettes, uncomplicated; F10.282 Alcohol dependence with alcohol-induced sleep disorder; F32.9 Major depressive disorder, single episode, unspecified; I48.91 Unspecified atrial fibrillation; D69.6 Thrombocytopenia, unspecified; G62.9 Polyneuropathy, unspecified; I10 Essential (primary) hypertension; K21.9 Gastro-esophageal reflux disease without esophagitis; K70.10 Alcoholic hepatitis without ascites; M10.9 Gout, unspecified; Z86.69 Personal history of other diseases of the nervous system and sense organs; Z86.79 Personal history of other diseases of the circulatory system
CPT/HCPCS: 36415; 80053; 81003; 82746; 83735; 85027; 85610; 86780; C9803; U0003